=== PATIENT | female | born 1955 | race Asian ===

== ENCOUNTER → 2017-09-26 | Outpatient (CLI) | payer BC ==
[~2017-09-26] MED LIST: ESTROGEN CREAM TOP
[2017-09-26 18:06] LABS: MEAN CELL VOLUME 91.1 fL (80-100); MEAN CORPUSCULAR HEMOGLOBIN 29.9 pg (25-34); MEAN CORPUSCULAR HGB CONC 32.8 g/dl (32-36); PLATELET COUNT 181 K/uL (130-400); RED BLOOD COUNT 4.28 M/uL (4.2-5.4); WHITE BLOOD COUNT 4.45 K/uL (4.8-10.8)
[2017-09-26 18:57] LABS: ALB/GLOB RATIO 1.2 (0.9-2); ALKALINE PHOSPHATASE 85 U/L (45-117); ALT/SGPT 25 U/L (12-78); AST/SGOT 24 U/L (15-37); BLOOD UREA NITROGEN 24 mg/dl (7-18); BUN/CREATININE RATIO 42.8 (10-20); CARBON DIOXIDE 29 mmol/L (21-32); CHLORIDE 109 mmol/L (98-107); CREATININE 0.56 mg/dl (0.60-1.20); GLUCOSE 106 mg/dl (70-99); POTASSIUM 3.9 mmol/L (3.5-5.1); SODIUM 142 mmol/L (136-145)
--- NOTE | 2017-09-26 19:22 | DIAGNOSTIC IMAGING REPORT ---
ABDOMEN COMPLETE (US) CLINICAL HISTORY: 61 years-old Female presenting with ABD PAIN, PT TO LAB FIRST. TECHNIQUE: Real-time grayscale and limited color Doppler ultrasound imaging of the abdomen was performed. COMPARISON: None. FINDINGS: Pancreas: Visualized portions of the pancreatic head and body normal. Liver: Mildly hyperechogenic parenchyma, although the right hemidiaphragm remains visible, likely indicating mild steatosis. The liver measures 12.4 cm in maximal sagittal dimension. No sonographic evidence of hepatic mass. Main portal vein patent with normal directional flow. Biliary: No intrahepatic biliary ductal dilatation. Common bile duct measures up to 3-6 mm in diameter in the proximal to midportion and 7 mm at the pancreatic head. A focal hyperechoic filling defect may be present in the mid common duct. Gallbladder: Decompressed. 3 mm nonshadowing hyperechoic focus near the gallbladder neck in a dependent location, possibly cholesterol polyp versus tiny gallstone. Spleen: Normal in echogenicity and size, measuring 8.3 cm in length. Kidneys: Normal in size and echogenicity. Right kidney measures 9.6 cm, and left kidney measures 10.5 cm. No hydronephrosis. Vasculature: Visualized portions of the IVC and abdominal aorta normal. Ascites: None. IMPRESSION: 1. A focal hyperechoic filling defect may be present in the mid common duct suggesting choledocholithiasis. 2. 3 mm cholesterol polyp versus tiny gallstone at the gallbladder neck. 3. Possible hepatic steatosis. Electronically signed by: Sixto Zimmerman M.D. 09/26/2017 7:21 PM Dictated Date/Time: 09/26/2017 7:17 PM
== END | disposition home or self-care (01) ==
LOC: C.ULTR 17:36
PROVIDERS: ATTEND Family Medicine
DX: R10.9 Unspecified abdominal pain (principal)

== ENCOUNTER 2017-10-04 15:56 | Emergency (ER) | payer BC ==
[~2017-10-04] VITALS: Ht 152.4 cm; Wt 46.3 kg
[2017-10-04 16:02] VITALS: TEMP 36.3; Ht 152.4 cm; Wt 46.3 kg
[2017-10-04] MEDS ORDERED: ESTROGEN CREAM TOP (16:46)
--- NOTE | 2017-10-04 17:09 | EMERGENCY ROOM VISIT NOTE ---
History Report prepared by Maame: Yaakov Armstrong Under the Supervision of: Dr. Sunny Powell M.D. First contact with patient: 16:31 Chief Complaint: CARDIAC ASSESSMENT Stated Complaint: PAIN IN CHEST Nursing Triage Summary: pt to PCP today for epigastric pain that has been ongoing X 2 months pt reports pain has been worse after eating or moving around denies vomitting spouse reports pt had US today + for gallbladder disease History of Present Illness This history is provided by the patient's secondary to the language barrier. The patient is a 61 year old woman with a past medical history of a past exploratory abdominal surgery that was negative who presents to the ED with a cc of incrementally worsening bilateral burning lower rib cage pain beginning 2 months ago. Positive intermittent shortness of breath secondary to her pain. Negative fevers, cough, back pain, vomiting, melena, hematochezia, rash, or any other abnormal symptoms. When her pain began, she was diagnosed with bronchitis and treated with Doxycycline. She then had an allergic reaction to the antibiotic and was taken off of it. She was then treated by a loading dock helper for GERD, but did not resolved her symptoms. She does not have pain after eating. She has a family history of stroke and cardiac disease. Source of History: patient Onset: 2 months ago Position: chest (bilateral lower ribs) Symptom Intensity: mild Quality: burning Timing: worsening Associated Symptoms: + SOB (Intermittently), No fevers, No cough, No vomiting, No back pain, No melena, No hematochezia, No rash Review of Systems See HPI for pertinent positives and negatives. A total of ten systems were reviewed and were otherwise negative. Past Medical & Surgical Surgical Problems: (1) H/O exploratory laparotomy No acute medical history Family History Heart disease Stroke Social History Smoking Status: Never Smoker Smokeless Tobacco Use: No Alcohol Use: none Drug Use: none Marital Status: Housing Status: lives with significant other Occupation Status: employed Current/Historical Medications Scheduled [Estrogen Cream], 1 APPLN TOP Allergies Coded Allergies: Doxycycline (Verified Allergy, Severe, RED SPLOTCHES, 10/04/17) Physical Exam Vital Signs Date Time Temp Pulse Resp B/P (MAP) Pulse Ox O2 Delivery O2 Flow Rate FiO2 10/04/17 20:12 57 18 109/61 98 10/04/17 18:51 60 119/74 96 Room Air 10/04/17 16:02 36.3 66 20 127/83 97 Room Air Physical Exam GENERAL: Awake, alert, well-appearing, NAD HENT: Normocephalic, atraumatic. EYES: Normal conjunctiva. Sclera non-icteric. NECK: Supple. No nuchal rigidity. FROM. RESPIRATORY: CTAB, no rhonchi, wheezing, crackles CARDIAC: RRR, no MRG ABDOMEN: Soft, epigastric pain to palpation, BS+ MSK: No chest wall TTP, no LE edema NEURO: GCS 15, CN 2-12 intact, moves all 4s on command SKIN: No rash or jaundice noted. Medical Decision & Procedures ER Provider Diagnostic Interpretation: Radiology results as stated below per my review and radiologist interpretation: ABDOMINAL ULTRASOUND, RIGHT UPPER QUADRANT HISTORY: Chest pain. Right upper quadrant tenderness to palpation. COMPARISON: Abdominal ultrasound September 26, 2017. FINDINGS: No hepatic lesions are identified. The common bile duct is mildly dilated, measuring 9 mm in caliber. No common bile duct calculi are identified although the distal common bile duct is obscured. A 3 mm abnormality along the gallbladder wall could reflect a small polyp or tiny stones. There is no gallbladder wall thickening. No pericholecystic fluid is present. The pancreas is sonographically normal. There is no right hydronephrosis. IMPRESSION: 1. Mild dilatation of the common bile duct, measuring 9 mm. No common bile duct calculi identified by sonography. This finding could be correlated obstructive liver function tests. 2. 3 mm abnormality along the gallbladder wall which could reflect a tiny polyp or gallstone. No evidence for acute cholecystitis. Electronically signed by: Scottie Loaiza M.D. 10/04/2017 6:34 PM Dictated Date/Time: 10/04/2017 6:30 PM CHEST ONE VIEW PORTABLE CLINICAL HISTORY: Abdominal pain. COMPARISON STUDY: No previous studies for comparison. FINDINGS: Nipple shadow projects of the left lower lung. There is no pneumothorax or pleural effusion. There is no consolidation to suggest pneumonia. Cardiomediastinal silhouette is normal. There is no evidence of pulmonary edema. No lucency is identified under the hemidiaphragms to suggest pneumoperitoneum. IMPRESSION: No acute cardiopulmonary findings. Electronically signed by: Scottie Loaiza M.D. 10/04/2017 5:46 PM Dictated Date/Time: 10/04/2017 5:45 PM Laboratory Results 10/04/17 17:07 Red Blood Count 4.36, Mean Corpuscular Volume 90.1, Mean Corpuscular Hemoglobin 31.7, Mean Corpuscular Hemoglobin Concent 35.1, Mean Platelet Volume 10.9, Neutrophils (%) (Auto) 61.0, Lymphocytes (%) (Auto) 31.8, Monocytes (%) (Auto) 3.9, Eosinophils (%) (Auto) 3.1, Basophils (%) (Auto) 0.0, Neutrophils # (Auto) 3.10, Lymphocytes # (Auto) 1.62, Monocytes # (Auto) 0.20, Eosinophils # (Auto) 0.16, Basophils # (Auto) 0.00 10/04/17 17:07 Test 10/04/17 17:07 White Blood Count 5.09 K/uL (4.8-10.8) Red Blood Count 4.36 M/uL (4.2-5.4) Hemoglobin 13.8 g/dL (12.0-16.0) Hematocrit 39.3 % (37-47) Mean Corpuscular Volume 90.1 fL (80-100) Mean Corpuscular Hemoglobin 31.7 pg (25-34) Mean Corpuscular Hemoglobin Concent 35.1 g/dl (32-36) Platelet Count 173 K/uL (130-400) Mean Platelet Volume 10.9 fL (7.4-10.4) Neutrophils (%) (Auto) 61.0 % Lymphocytes (%) (Auto) 31.8 % Monocytes (%) (Auto) 3.9 % Eosinophils (%) (Auto) 3.1 % Basophils (%) (Auto) 0.0 % Neutrophils # (Auto) 3.10 K/uL (1.4-6.5) Lymphocytes # (Auto) 1.62 K/uL (1.2-3.4) Monocytes # (Auto) 0.20 K/uL (0.11-0.59) Eosinophils # (Auto) 0.16 K/uL (0-0.5) Basophils # (Auto) 0.00 K/uL (0-0.2) RDW Standard Deviation 41.5 fL (36.4-46.3) RDW Coefficient of Variation 12.6 % (11.5-14.5) Immature Granulocyte % (Auto) 0.2 % Immature Granulocyte # (Auto) 0.01 K/uL (0.00-0.02) Anion Gap 7.0 mmol/L (3-11) Est Creatinine Clear Calc Drug Dose 81.1 ml/min Estimated GFR () 118.6 Estimated GFR (Non- 102.3 BUN/Creatinine Ratio 30.8 (10-20) Calcium Level 9.3 mg/dl (8.5-10.1) Total Bilirubin 0.5 mg/dl (0.2-1) Direct Bilirubin < 0.1 mg/dl (0-0.2) Aspartate Amino Transf (AST/SGOT) 23 U/L (15-37) Alanine Aminotransferase (ALT/SGPT) 26 U/L (12-78) Alkaline Phosphatase 77 U/L (45-117) Troponin I < 0.015 ng/ml (0-0.045) Total Protein 7.7 gm/dl (6.4-8.2) Albumin 4.0 gm/dl (3.4-5.0) Lipase 242 U/L (73-393) Laboratory results reviewed by me ECG Indication: chest pain Rate (beats per minute): 65 Rhythm: normal sinus Findings: other (Normal intervals, normal axis, no STS changes or TWI) ED Course 163: The patient was evaluated in room C1. A complete history and physical exam was performed. 1840: I spoke with Dr. Torres of [facility] who recommended that the patient get a nuclear biliary scan with ejection fraction. The child welfare caseworker is helping set up and appointment for the patient. 1939: I reevaluated the patient. Discussed results and discharge instructions: Her verbalized understanding and agreement. The patient is ready for discharge. Medical Decision The patient is a 61 year old woman with a past medical history of a past exploratory abdominal surgery that was negative who presents to the ED with a cc of incrementally worsening bilateral lower rib cage pain beginning 2 months ago. Positive intermittent shortness of breath secondary to her pain. Negative fevers, cough, back pain, vomiting, melena, hematochezia, rash, or any other abnormal symptoms. Differential diagnosis: Etiologies such as appendicitis, diverticulitis, PUD, biliary pathology, UTI, pancreatitis, obstruction, mesenteric ischemia, aortic pathology, inflammatory bowel disease, renal colic, cardiac ischemia, pulmonary embolism, pneumonia, pneumothorax, musculoskeletal, infections, pericarditis, myocarditis, esophageal rupture, as well as others were entertained. Patient was seen and evaluated at the bedside. Patient was recently seen by her primary care physician and has had some ongoing epigastric type discomfort. No exertional symptoms. Patient has had some shortness of breath however secondary to pain upon inspiration. Patient is fairly well-appearing. No diaphoresis. Patient has had some worsening pain with eating. Patient did have an ultrasound of the right upper quadrant which showed questionable CBD dilation. Patient did have blood work completed along with EKG, troponin and repeat ultrasound. Patient's EKG is nonischemic. Troponin negative. Patient' s LFTs and lipase within normal limits. White blood cell count is normal. Patient has normal H&H. Patient's ultrasound did show questionable dilation of the CBD. I did speak with the loading dock helper who recommended a biliary nuclear med scan with ejection fraction. I did discuss this with the nuclear reactor engineer aeronautical research engineer who stated that they would not be able to obtain it this weekend. Given the difficulty in obtaining the study I did discuss arranging the study as an outpatient on Saturday. This was facilitated with the help of the child welfare caseworker. The patient and were told of how this would be obtained. They're also given strict follow-up instructions. They were agreeable to plan of care. I do not believe that this is atypical chest pain and less likely ACS given the history and physical, nonischemic EKG, and negative troponin. Patient was given strict follow-up, discharge, and return precautions. All questions were answered. Patient was deemed suitable for outpatient follow-up at this time. Patient agreed with the plan of care and was safely discharged home. Medication Reconcilliation Current Medication List: was personally reviewed by me Blood Pressure Screening Patient's blood pressure: Normal blood pressure Blood pressure disposition: Did not require urgent referral Consults Time Called: 1836 Consulting Physician: Dr. Torres - [facility] Returned Call: 1840 We discussed the patient's case. They recommended that the patient receive a nuclear biliary scan with ejection fraction. Impression Primary Impression: Epigastric abdominal pain Additional Impression: Dilated cbd, acquired Scribe Attestation The scribe's documentation has been prepared under my direction and personally reviewed by me in its entirety. I confirm that the note above accurately reflects all work, treatment, procedures, and medical decision making performed by me. Departure Information Dispostion Home / Self-Care Referrals Louie Almonte M.D. (PCP) Forms IMPORTANT VISIT INFORMATION Patient Instructions ED Gallstone W Biliary Colic, [facility] Additional Instructions Please return to the emergency department if you have worsening or recurrent symptoms not amenable to at-home treatment. Please call for a follow-up appointment with her primary care physician. Please take your medications as prescribed. If you have other concerns and/or complaints please feel free to also call your primary care physician's office or return the ED for further evaluation, management, and treatment. You may take 600 mg Ibuprofen every 6 hours as needed for pain with food for no more than 2 consecutive days. You may take tylenol 1000 mg every 6 hours as needed for pain. You may take motrin and tylenol separately or at the same time. Take your medications as prescribed. You have been scheduled a Hepatobiliary scan for 10/07/17. Please refer to your paperwork you received from case management. Please do not eat or drink anything after 1159 PM on 10/06/17. Also do not take any pain medications prior to your nuclear medicine scan. You have been examined and treated today on an emergency basis only. This is not a substitute for, or an effort to provide, complete comprehensive medical care. It is impossible to recognize and treat all injuries or illnesses in a single emergency department visit. It is therefore important that you follow up closely with [facility], your PCP, and/or your specialist(s). Call as soon as possible for an appointment. Thank you for your time and consideration. I look forward to speaking with you again soon. Please don't hesitate to call us if you have any questions. Problem Qualifiers
[2017-10-04 17:34] LABS: EOS % 3.1 %; EOS ABS # 0.16 K/uL (0-0.5); HEMATOCRIT 39.3 % (37-47); HEMOGLOBIN 13.8 g/dL (12.0-16.0); IG# 0.01 K/uL (0.00-0.02); LYMPH % 31.8 %; LYMPH ABS # 1.62 K/uL (1.2-3.4); MEAN CELL VOLUME 90.1 fL (80-100); MEAN CORPUSCULAR HEMOGLOBIN 31.7 pg (25-34); MEAN CORPUSCULAR HGB CONC 35.1 g/dl (32-36); MEAN PLATELET VOLUME 10.9 fL (7.4-10.4); MONO % 3.9 %; PLATELET COUNT 173 K/uL (130-400); RED CELL DISTRIBUTION WIDTH CV 12.6 % (11.5-14.5); RED CELL DISTRIBUTION WIDTH SD 41.5 fL (36.4-46.3); WHITE BLOOD COUNT 5.09 K/uL (4.8-10.8)
--- NOTE | 2017-10-04 17:47 | DIAGNOSTIC IMAGING REPORT ---
CHEST ONE VIEW PORTABLE CLINICAL HISTORY: Abdominal pain. COMPARISON STUDY: No previous studies for comparison. FINDINGS: Nipple shadow projects of the left lower lung. There is no pneumothorax or pleural effusion. There is no consolidation to suggest pneumonia. Cardiomediastinal silhouette is normal. There is no evidence of pulmonary edema. No lucency is identified under the hemidiaphragms to suggest pneumoperitoneum. IMPRESSION: No acute cardiopulmonary findings. Electronically signed by: Scottie Loaiza M.D. 10/04/2017 5:46 PM Dictated Date/Time: 10/04/2017 5:45 PM
[2017-10-04 17:55] LABS: ALT/SGPT 26 U/L (12-78); AST/SGOT 23 U/L (15-37); BLOOD UREA NITROGEN 16 mg/dl (7-18); CALCIUM 9.3 mg/dl (8.5-10.1); CARBON DIOXIDE 27 mmol/L (21-32); CREATININE 0.51 mg/dl (0.60-1.20); GLUCOSE 87 mg/dl (70-99); LIPASE 242 U/L (73-393); POTASSIUM 3.6 mmol/L (3.5-5.1); SODIUM 140 mmol/L (136-145)
[2017-10-04 18:00] LABS: ALKALINE PHOSPHATASE 77 U/L (45-117); TOTAL PROTEIN 7.7 gm/dl (6.4-8.2)
--- NOTE | 2017-10-04 18:35 | DIAGNOSTIC IMAGING REPORT ---
ABDOMINAL ULTRASOUND, RIGHT UPPER QUADRANT HISTORY: Chest pain. Right upper quadrant tenderness to palpation. COMPARISON: Abdominal ultrasound September 26, 2017. FINDINGS: No hepatic lesions are identified. The common bile duct is mildly dilated, measuring 9 mm in caliber. No common bile duct calculi are identified although the distal common bile duct is obscured. A 3 mm abnormality along the gallbladder wall could reflect a small polyp or tiny stones. There is no gallbladder wall thickening. No pericholecystic fluid is present. The pancreas is sonographically normal. There is no right hydronephrosis. IMPRESSION: 1. Mild dilatation of the common bile duct, measuring 9 mm. No common bile duct calculi identified by sonography. This finding could be correlated obstructive liver function tests. 2. 3 mm abnormality along the gallbladder wall which could reflect a tiny polyp or gallstone. No evidence for acute cholecystitis. Electronically signed by: Scottie Loaiza M.D. 10/04/2017 6:34 PM Dictated Date/Time: 10/04/2017 6:30 PM
[2017-10-04 20:12] VITALS: BP 109/61; PULSE 57; O2SAT 98
== END 2017-10-04 20:10 | disposition home or self-care (01) ==
LOC: C.EDB 15:57 → C.EDC 20:10
DX: R10.13 Epigastric pain (principal); K83.8 Other specified diseases of biliary tract; Z98.890 Other specified postprocedural states; Z82.3 Family history of stroke

== ENCOUNTER → 2017-10-07 | Outpatient (CLI) | payer BC ==
[~2017-10-07] MED LIST changes: +SINCALIDE IV ONE; +SODIUM CHLORIDE 0.9% IV ONE
--- NOTE | 2017-10-07 10:30 | DIAGNOSTIC IMAGING REPORT ---
HEPATOBILIARY EF IMAGING HISTORY: Pain. Nausea. BORDERLINE CBD DIALATION W/ SYMPOTMS COMPARISON: Ultrasound 10/04/2017 TECHNIQUE: Immediately following the intravenous administration of 5.5 mCi Tc-99m Choletec, dynamic anterior abdominal imaging pre/post 0.9 mcg of Kinevac was performed. FINDINGS: Uniform hepatic tracer accumulation is shown. Prompt intrahepatic biliary excretion is seen. The gallbladder, common bile duct, and small bowel are all visualized by 70 minutes. This appearance represents the normal sequence of biliary excretion. The gallbladder ejection fraction following administration of Kinevac was 66 % (normal >35%). IMPRESSION: 1. No evidence for cystic duct obstruction. 2. Gallbladder ejection fraction calculated to be 66 %. 3. Slight delay in small bowel activity which may indicate a component of distal common duct sphincter dysfunction The above report was generated using voice recognition software. It may contain grammatical, syntax or spelling errors. Electronically signed by: Giovanni Iverson M.D. 10/07/2017 10:28 AM Dictated Date/Time: 10/07/2017 10:26 AM
== END | disposition home or self-care (01) ==
LOC: C.NUCL 07:36
PROVIDERS: ATTEND Emergency Medicine
DX: K83.8 Other specified diseases of biliary tract (principal)

== ENCOUNTER 2017-10-10 16:57 | Emergency (ER) | payer BC ==
[~2017-10-10] VITALS: Ht 152.4 cm; Wt 47.6 kg
[~2017-10-10 16:57] MED LIST changes: -SINCALIDE IV ONE; -SODIUM CHLORIDE 0.9% IV ONE
[2017-10-10 17:03] VITALS: TEMP 36.4; Ht 152.4 cm; Wt 47.6 kg
[2017-10-10] MEDS ORDERED: LIDOCAINE HCL 2% VISC SOLN 20 ML UDC PO STA (17:23)
[2017-10-10] MEDS ORDERED: ALUMINUM/MAGNESIUM SUSP 30 ML UDC PO STA (17:23)
[2017-10-10] MEDS ORDERED: ASPIRIN 81 MG CHEW PO STA (17:23)
[2017-10-10 17:34] LABS: BASO % 0.4 %; BASO ABS # 0.02 K/uL (0-0.2); EOS % 2.6 %; EOS ABS # 0.13 K/uL (0-0.5); HEMATOCRIT 40.7 % (37-47); HEMOGLOBIN 13.9 g/dL (12.0-16.0); IG# 0.01 K/uL (0.00-0.02); LYMPH % 33.1 %; LYMPH ABS # 1.64 K/uL (1.2-3.4); MEAN CELL VOLUME 90.8 fL (80-100); MEAN CORPUSCULAR HGB CONC 34.2 g/dl (32-36); MEAN PLATELET VOLUME 10.7 fL (7.4-10.4); MONO % 4.6 %; MONO ABS # 0.23 K/uL (0.11-0.59); NEUT % 59.1 %; NEUT ABS # 2.93 K/uL (1.4-6.5); PLATELET COUNT 179 K/uL (130-400); RED CELL DISTRIBUTION WIDTH CV 12.7 % (11.5-14.5); WHITE BLOOD COUNT 4.96 K/uL (4.8-10.8)
--- NOTE | 2017-10-10 17:37 | EMERGENCY ROOM VISIT NOTE ---
History Report prepared by Maame: Jeb Hammond Under the Supervision of: Dr. Shannan Hernández M.D. First contact with patient: 17:18 Chief Complaint: CHEST PAIN Stated Complaint: CHEST PAINS, SOB History of Present Illness The patient is a 61 year old female who presents to the Emergency Room with complaints of worsening, constant, epigastric abdominal pain that radiates to her left lower chest beginning last week. The patient's states she was evaluated in the ED last week for similar symptoms. He reports when she was here , her pain was intermittent. The notes since then, the patient's symptoms have worsened and became constant. He states they thought her pain was muscular because it radiates to her right shoulder and left chest. The reports the patient had a nuclear scan and ultrasound that were negative for gallstones. He notes the patient is now short of breath, especially when excited. The states the patient's chest tightness increases when she wears a seatbelt or uses a blanket at night. He reports her pain also increases when she takes a deep breath. The notes the patient has been taking Aleve and aspirin, but she stopped taking it a few days ago because it was not helping her pain. He states the patient has been off work for two weeks. The reports she was evaluated by her PCP today and had a normal EKG. He notes they were told to come to the ED for further treatment. The denies long trips, taking aspirin today, and lower abdominal pain. Source of History: patient Onset: last week Position: chest (left, lower), abdomen (epigastric) Timing: constant, worsening Modifying Factors (Worsening): breathing (deep), other (wearing a seatbelt, using a blanket) Associated Symptoms: + SOB, No abdominal pain (lower) Note: Associated symptoms: right shoulder Denies: recent travel Review of Systems See HPI for pertinent positives & negatives. A total of 10 systems reviewed and were otherwise negative. Past Medical & Surgical Surgical Problems: (1) H/O exploratory laparotomy Family History Heart disease Stroke Social History Smoking Status: Never Smoker Alcohol Use: none Drug Use: none Marital Status: Housing Status: lives with significant other Occupation Status: employed Current/Historical Medications Scheduled [Estrogen Cream], 1 APPLN TOP UD Allergies Coded Allergies: Doxycycline (Verified Allergy, Severe, RED SPLOTCHES, 10/10/17) Physical Exam Vital Signs Date Time Temp Pulse Resp B/P (MAP) Pulse Ox O2 Delivery O2 Flow Rate FiO2 10/10/17 20:04 56 16 125/74 97 10/10/17 18:07 58 10/10/17 18:04 58 16 140/83 99 Room Air 10/10/17 17:46 Room Air 10/10/17 17:03 36.4 58 16 109/70 98 Room Air Physical Exam Vital signs reviewed. General: Well-appearing 61 year old female, in no significant distress. HEENT: No scleral icterus, PERRLA, neck supple. Atraumatic. Cardiovascular: Regular rate and rhythm, no extra sounds. Pulmonary: Clear to auscultation bilaterally, normal work of breathing. Abdomen: Soft, nontender, nondistended, positive bowel sounds. Musculoskeletal: Atraumatic, no peripheral edema. Tenderness to palpation to the anterior chest wall and right upper back. Pain with deep breathing. Neurologic: Patient awake alert and oriented x 3 Skin: Warm, dry, no rash Medical Decision & Procedures ER Provider Diagnostic Interpretation: X-ray results as stated below per interpretation by me and the radiologist: CHEST ONE VIEW PORTABLE CLINICAL HISTORY: CHEST PAIN pain COMPARISON STUDY: 10/04/2014 FINDINGS: The bones soft tissues and hemidiaphragms are normal. The cardiomediastinal silhouette is normal. The lungs are clear. The pulmonary vasculature is normal. IMPRESSION: Negative chest. The above report was generated using voice recognition software. It may contain grammatical, syntax or spelling errors. Electronically signed by: Giovanni Iverson M.D. 10/10/2017 5:57 PM Dictated Date/Time: 10/10/2017 5:55 PM Laboratory Results 10/10/17 17:15 Red Blood Count 4.48, Mean Corpuscular Volume 90.8, Mean Corpuscular Hemoglobin 31.0, Mean Corpuscular Hemoglobin Concent 34.2, Mean Platelet Volume 10.7, Neutrophils (%) (Auto) 59.1, Lymphocytes (%) (Auto) 33.1, Monocytes (%) (Auto) 4.6, Eosinophils (%) (Auto) 2.6, Basophils (%) (Auto) 0.4, Neutrophils # (Auto) 2.93, Lymphocytes # (Auto) 1.64, Monocytes # (Auto) 0.23, Eosinophils # (Auto) 0.13, Basophils # (Auto) 0.02 10/10/17 17:15 Test 10/10/17 17:15 10/10/17 17:38 White Blood Count 4.96 K/uL (4.8-10.8) Red Blood Count 4.48 M/uL (4.2-5.4) Hemoglobin 13.9 g/dL (12.0-16.0) Hematocrit 40.7 % (37-47) Mean Corpuscular Volume 90.8 fL (80-100) Mean Corpuscular Hemoglobin 31.0 pg (25-34) Mean Corpuscular Hemoglobin Concent 34.2 g/dl (32-36) Platelet Count 179 K/uL (130-400) Mean Platelet Volume 10.7 fL (7.4-10.4) Neutrophils (%) (Auto) 59.1 % Lymphocytes (%) (Auto) 33.1 % Monocytes (%) (Auto) 4.6 % Eosinophils (%) (Auto) 2.6 % Basophils (%) (Auto) 0.4 % Neutrophils # (Auto) 2.93 K/uL (1.4-6.5) Lymphocytes # (Auto) 1.64 K/uL (1.2-3.4) Monocytes # (Auto) 0.23 K/uL (0.11-0.59) Eosinophils # (Auto) 0.13 K/uL (0-0.5) Basophils # (Auto) 0.02 K/uL (0-0.2) RDW Standard Deviation 42.0 fL (36.4-46.3) RDW Coefficient of Variation 12.7 % (11.5-14.5) Immature Granulocyte % (Auto) 0.2 % Immature Granulocyte # (Auto) 0.01 K/uL (0.00-0.02) Anion Gap 3.0 mmol/L (3-11) Est Creatinine Clear Calc Drug Dose 68.9 ml/min Estimated GFR () 112.4 Estimated GFR (Non- 97.0 BUN/Creatinine Ratio 28.0 (10-20) Calcium Level 9.4 mg/dl (8.5-10.1) Total Bilirubin 0.4 mg/dl (0.2-1) Direct Bilirubin < 0.1 mg/dl (0-0.2) Aspartate Amino Transf (AST/SGOT) 19 U/L (15-37) Alanine Aminotransferase (ALT/SGPT) 26 U/L (12-78) Alkaline Phosphatase 92 U/L (45-117) Total Creatine Kinase 133 U/L (26-192) Creatine Kinase MB 1.8 ng/ml (0.5-3.6) Creatine Kinase MB Ratio 1.4 (0-3.0) Total Protein 7.6 gm/dl (6.4-8.2) Albumin 4.0 gm/dl (3.4-5.0) Lipase 280 U/L (73-393) Bedside D-Dimer 121 ng/mlFEU (0-450) Bedside Troponin I < 0.030 ng/ml (0-0.045) Laboratory results per my review. Medications Administered Medications (Trade) Dose Ordered Sig/Ortiz Route Start Time Stop Time Status Last Admin Dose Admin Aspirin (Aspirin Chew) 324 mg NOW STAT PO 10/10/17 17:23 10/10/17 17:25 DC 10/10/17 17:51 324 MG Lidocaine HCl (Viscous Lidocaine 2% Soln) 10 ml NOW STAT PO 10/10/17 17:23 10/10/17 17:25 DC 10/10/17 17:23 10 ML Al Hydroxide/Mg Hydroxide (Maalox Susp) 30 ml NOW STAT PO 10/10/17 17:23 10/10/17 17:25 DC 10/10/17 17:52 30 ML ECG Indication: chest pain Rate (beats per minute): 58 Rhythm: sinus bradycardia Findings: no acute ischemic change, no ectopy ED Course 1720: Past medical records reviewed. The patient was evaluated in room C06. A complete history and physical examination was performed. 1722: Ordered Maalox Susp 30ml PO, Lidocaine HCl 10ml PO, Aspirin 324mg PO 1938: Upon reevaluation, the patient appeared to have improvement of her symptoms. I discussed findings with her . He verbalized agreement of the treatment plan. The patient was discharged home. Medical Decision DDx: Acute coronary syndrome, pulmonary embolus, aortic dissection, musculoskeletal pain, pneumonia, pleural effusion, pneumothorax This pt was evaluated and appeared to be in no distress. IV access was obtained and lab work was drawn. Pt was given aspirin. EKG reveals no ischemia, CXR is clear. Lab work reveals no elevation of the cardiac enzymes. Pt's pain in reproducible, although pt believes she had improvement with a GI cocktail. Pt was advised to re-initiate prilosec as previously prescribed. She will f/u with her PCP for further cardiac testing if indicated and possibly GI eval. She will return to the ED for worsening of symptoms or any medical concerns. Impression Primary Impression: Atypical chest pain Scribe Attestation The scribe's documentation has been prepared under my direction and personally reviewed by me in its entirety. I confirm that the note above accurately reflects all work, treatment, procedures, and medical decision making performed by me. Departure Information Dispostion Home / Self-Care Referrals Louie Almonte M.D. (PCP) Forms Call Back Authorization, HOME CARE DOCUMENTATION FORM, IMPORTANT VISIT INFORMATION Patient Instructions My [facility] Additional Instructions Diagnosis: Atypical chest pain Please contact your primary care physician for follow-up. You may be considered for further cardiac testing. Return to the emergency department for worsening of symptoms or any medical concerns.
--- NOTE | 2017-10-10 17:58 | DIAGNOSTIC IMAGING REPORT ---
CHEST ONE VIEW PORTABLE CLINICAL HISTORY: CHEST PAIN pain COMPARISON STUDY: 10/04/2014 FINDINGS: The bones soft tissues and hemidiaphragms are normal. The cardiomediastinal silhouette is normal. The lungs are clear. The pulmonary vasculature is normal. IMPRESSION: Negative chest. The above report was generated using voice recognition software. It may contain grammatical, syntax or spelling errors. Electronically signed by: Giovanni Iverson M.D. 10/10/2017 5:57 PM Dictated Date/Time: 10/10/2017 5:55 PM
[2017-10-10 17:59] LABS: BLOOD UREA NITROGEN 17 mg/dl (7-18); GLUCOSE 99 mg/dl (70-99)
[2017-10-10 18:00] LABS: ALKALINE PHOSPHATASE 92 U/L (45-117); ALT/SGPT 26 U/L (12-78); CALCIUM 9.4 mg/dl (8.5-10.1); CARBON DIOXIDE 29 mmol/L (21-32); CKMB 1.8 ng/ml (0.5-3.6); LIPASE 280 U/L (73-393); TOTAL PROTEIN 7.6 gm/dl (6.4-8.2)
[2017-10-10 18:20] LABS: AST/SGOT 19 U/L (15-37); SODIUM 140 mmol/L (136-145)
[2017-10-10 20:04] VITALS: BP 125/74; PULSE 56; O2SAT 97
== END 2017-10-10 19:47 | disposition home or self-care (01) ==
LOC: C.EDB 16:58 → C.EDC 19:47
DX: R07.89 Other chest pain (principal); Z82.3 Family history of stroke

== ENCOUNTER → 2017-10-24 | Outpatient (CLI) | payer BC ==
--- NOTE | 2017-10-25 13:26 | MAMMOGRAPHY REPORT ---
BILATERAL DIGITAL SCREENING MAMMOGRAM TOMOSYNTHESIS WITH CAD: 10/24/2017 CLINICAL HISTORY: Routine screening. TECHNIQUE: Breast tomosynthesis in addition to standard 2D mammography was performed. Current study was also evaluated with a Computer Aided Detection (CAD) system. COMPARISON: No prior exams were available for comparison. BREAST COMPOSITION: The tissue of both breasts is extremely dense, which lowers the sensitivity of m ammography. FINDINGS: No suspicious masses, calcifications, or areas of architectural distortion are noted in ei ther breast. Scattered benign-appearing calcifications are noted bilaterally. IMPRESSION: ACR BI-RADS CATEGORY 2: BENIGN There is no mammographic evidence of malignancy. A 1 year screening mammogram is recommended. Note t hat no prior mammograms are available for comparison; if prior outside mammograms can be obtained, it would be helpful to evaluate for any possible subtle changes. The patient will receive written notification of the results. Approximately 10% of breast cancers are not detected with mammography. A negative mammographic report should not delay biopsy if a clinically suggestive mass is present. Chelo Barajas M.D. ah/:10/24/2017 16:10:05 Echocardiography Radiology Technologist: Ariela FONSECA(R)(M), [facility] letter sent: Normal 1/2 BI-RADS Code: ACR BI-RADS Category 2: Benign
== END | disposition home or self-care (01) ==
LOC: C.MAMM 11:59
PROVIDERS: ATTEND Family Medicine
DX: Z12.31 Encounter for screening mammogram for malignant neoplasm of breast (principal)

== ENCOUNTER 2023-09-09 14:29 | Inpatient (IN) ==
--- NOTE | 2023-09-09 15:00 | ED Triage Note ---
Date of Service September 09, 2023 Provider in Triage Author: Jocelyn Banda History of Present Illness This patient was briefly evaluated while in triage. An abbreviated physical exam was performed. This patient is a 67-year-old Female who presents to the ED for evaluation of pain across her upper abdomen and in the back. She was diagnosed with pancreatic cancer in [place] and just returned from there. She was seeing Dr. Isidro today for her initial appointment and apparently Dr. Isidro wanted her directly admitted but were unable to so they sent her to the ER. She has had pain for 5 months overall. I did speak with Dr. Isidro who states that patient will need workup including CT scan and labs as none of this has been done in the [place]. Physical Exam VITALS: Vitals are noted on the nurse's note and reviewed by myself. GENERAL: This is a 67-year-old female, in no acute distress, well-developed well-nourished. SKIN: The skin was without rashes. EARS: External auditory canals clear, tympanic membranes pearly villa without erythema or effusion bilaterally. EYES: Pupils equal round and reactive to light and accommodation. No scleral icterus. HEART: Regular rate and rhythm without murmurs gallops or rubs. LUNGS: Clear to auscultation bilaterally without wheezes, rales or rhonchi. ABDOMEN: Positive bowel sounds x 4. Tenderness across the upper abdomen. NEURO: Patient was alert and oriented to person place and time. Initial orders for labs and / or imaging were placed and patient was placed in the waiting area until a bed is available. Please see further documentation for the full ED course.
[2023-09-09 16:02] LABS: Basophils # (auto) 0.01 K/uL (0.00-0.20); Basophils % (auto) 0.2 %; Eosinophils % (auto) 2.1 %; Hematocrit (blood only) 37.8 % (37.0-47.0); Hemoglobin 12.9 g/dl (12.0-16.0); Immature Granulocytes # (auto) 0.01 K/uL (0.01-0.20); Immature Granulocytes % (auto) 0.2 %; Lymphocytes # (auto) 1.44 K/uL (1.20-3.40); Lymphocytes % (auto) 30.3 %; Mean Corpuscular Hemoglobin 29.8 pg (25.0-34.0); Mean Corpuscular Hgb Conc 34.1 g/dL (32.0-36.0); Mean Corpuscular Volume 87.3 fL (80.0-100.0); Mean Platelet Volume 10.5 fL (9.4-12.4); Monocytes # (auto) 0.33 K/uL (0.11-0.59); Monocytes % (auto) 6.9 %; Neutrophils # (auto) 2.87 K/uL (1.40-6.50); Neutrophils % (auto) 60.3 %; Platelet Count 216 K/uL (130-400); RDW Coefficient of Variation 12.3 % (11.5-14.5); RDW Standard Deviation 39.6 fL (36.4-46.3); Red Blood Count 4.33 M/uL (4.20-5.40); White Blood Count 4.76 K/ul (4.8-10.8)
[2023-09-09 16:19] LABS: Alanine Aminotransferase 8 U/L (7-52); Albumin Globulin Ratio 1.5 (0.9-2); Alkaline Phosphatase 72 U/L (34-104); Anion Gap 7 (3-11); Aspartate Aminotransferase 15 U/L (13-39); Bilirubin,Total 0.6 mg/dl (0.2-1.0); Blood Urea Nitrogen 9 mg/dl (6-23); Calcium 9.1 mg/dl (8.6-10.3); Carbon Dioxide 24 mmol/L (21-32); Chloride 105 mmol/L (98-107); Est GFR (African American) 112.3 ml/min; Est GFR (Non-African American) 96.9 ml/min; Globulin 2.7 gm/dl (2.5-4.0); Glucose 99 mg/dl (70-99(Fasting)); Lipase 174 U/L (11-82); Potassium 3.5 mmol/L (3.5-5.1); Sodium 136 mmol/L (136-145); Total Protein 6.7 gm/dl (6.0-8.3)
[2023-09-09 16:31] LABS: Prothrombin Time 10.9 Seconds (9.0-12.0)
[2023-09-09] MEDS ORDERED: OPTIRAY 320 125ml IV ONE (16:40)
--- NOTE | 2023-09-09 17:02 | CT Scan Report ---
CT SCAN OF THE ABDOMEN COMBO PANCREAS PROTOCOL CLINICAL HISTORY: Pancreatic mass. COMPARISON STUDY: Abdominal ultrasound dated 10/04/2017. TECHNIQUE: Before and following the IV administration of 118 cc of Optiray 320, CT scan of the abdom en is performed from the lung bases to the pelvic inlet using a pancreas protocol. Images are reviewe d in the axial, sagittal, and coronal planes. IV contrast was administered without complication. A do se lowering technique was utilized adhering to the principles of ALARA. The examination is modestly d egraded by motion artifact. CT DOSE: 684.79 mGy.cm FINDINGS: Lung bases: The heart is normal in size and without pericardial effusion. The lung bases are clear no ting dependent atelectasis. Liver: The contrast-enhanced liver is normal in size, contour, and attenuation. Fatty infiltration is seen adjacent to falciform ligament. There is no intrahepatic biliary ductal dilatation. Hepatic and portal vasculature: Hepatic arterial anatomy is conventional. The hepatic veins, the port al veins, the superior mesenteric vein, and the splenic vein are patent. The mass lesion is not clear ly approximate the splenic vein. Gallbladder: Unremarkable. Spleen: Normal in size and attenuation. Pancreas: There is a heterogeneous and infiltrative low-attenuation mass lesion centered in the pancr eatic head/neck. This is best seen on axial image #107 of the portal venous phase series and measures roughly 2.6 x 2.5 x 2.3 cm. The upstream pancreatic duct is significantly dilated, measuring up to 9 mm diameter. The mass lesion appears to encase the gastroduodenal artery. This closely approximates and may invade the adjacent gastroduodenal junction. A 6 cm cystic focus is suggested in the uncinate process on image #128. Adrenal glands: Unremarkable. Kidneys: The contrast enhanced kidneys are normal in size and without hydronephrosis. No renal calcul i are identified on the unenhanced series. The kidneys enhance symmetrically. An 8 mm cyst is seen on the left. Abdominal vasculature: The abdominal aorta is normal in course and caliber noting mild atheroscleroti c calcification. No dissection is seen. Bowel: A surgical clip is noted in the stomach. Imaged portions of the small bowel and colon show no evidence of obstruction. There is moderate colonic fecal retention. Peritoneum: There is no intraperitoneal free air or abdominal ascites. Lymphadenopathy: None. Skeletal structures: The skeletal structures are osteopenic. No lytic or blastic lesions are seen. IMPRESSION: 1. There is an approximately 2.6 cm ill-defined mass lesion arising from the pancreatic head/neck as detailed above. A pancreatic adenocarcinoma is the diagnosis of exclusion. 2. The mass does not clearly approximate the superior mesenteric vessels, but does appear to encase t he gastroduodenal artery. The lesion closely approximates and may invade the adjacent gastroduodenal junction. 3. There is no evidence of intra-abdominal metastatic disease. 4. Additional findings as above. ACT 112: Positive. There are findings on this exam that require communication between the performing entity and the patient following Patient Test Result Information Act ([place] Act 112) guidelines. Electronically signed by: Dre Barrow M.D. 09/09/2023 5:00 PM
--- NOTE | 2023-09-09 17:06 | CT Scan Report ---
CT ANGIOGRAM OF THE CHEST CLINICAL HISTORY: Pancreatic mass. Dyspnea. Atypical chest pain. COMPARISON STUDY: Chest x-ray dated 11/02/2022. TECHNIQUE: Following the IV administration of 118 cc of Optiray 320, CT angiogram of the chest was pe rformed from the upper abdomen to the thoracic inlet utilizing the pulmonary embolus protocol. Images are reviewed in the axial, sagittal, and coronal planes. 3-D MIPS images are created and assessed. I V contrast was administered without complication. A dose lowering technique was utilized adhering to the principles of ALARA. FINDINGS: Thyroid: Imaged portions of the thyroid gland are normal in size and attenuation. Thoracic aorta: The thoracic aorta is normal in caliber and demonstrates standard 3-vessel arch anato my. No dissection is seen. Pulmonary vasculature: The pulmonary trunk is normal in caliber. There are no filling defects identif ied in main, lobar, or segmental pulmonary branches to suggest pulmonary embolus. Heart: The heart is normal in size and without pericardial effusion. There are scattered coronary art haresh calcifications. Lungs and pleural spaces: There is no airspace consolidation or pleural effusion. The trachea and shyla tral airways are clear. A small pleural plaque is seen in the anterior left lung on image #139. Mediastinum: There is no mediastinal lymphadenopathy. Ebony: Clear. Axillae: There is no axillary lymphadenopathy. Upper abdomen: A surgical clip is noted in the stomach. A subcentimeter flash filling hemangioma is s uggested in the right lobe of liver on image #45. Fatty infiltration is seen adjacent to the falcifor m ligament. There is dilatation of the pancreatic duct, secondary to an obstructing mass lesion. See report of abdominal CT performed the same day for detailed intra-abdominal findings. Skeletal structures: The skeletal structures are osteopenic. No lytic or blastic bony lesions are see n. Degenerative change is noted in the shoulders and thoracic spine. IMPRESSION: 1. There is no evidence of pulmonary embolus in the main, lobar, or segmental pulmonary arteries. 2. There is no airspace consolidation or pleural effusion. 3. There is no evidence of intrathoracic metastatic disease. 4. Additional findings as above. ACT 112: Negative or not required by law. Electronically signed by: Dre Barrow M.D. 09/09/2023 5:05 PM
--- NOTE | 2023-09-09 17:21 | History & Physical Report ---
Date of Service September 09, 2023 Assessment & Plan (1) Pancreatic cancer: Plan: Pancreatic Cancer New dx - CTAchest: No evidence of PE, no airspace consolidations or pleural effusion, no evidence of intrathoracic metastatic disease. CTabdomen pancreatic protocol: 2.6 cm ill-defined mass lesion from the pancreatic head/neck consistent with pancreatic adenocarcinoma. This is encasing the gastroduodenal artery and lesion approximate/may invade gastroduodenal junction. No evidence of intra-abdominal metastatic disease. - Pt has not had biopsy; GI consulted for EGD-EUS bx Anticipate neoadjuvant chemotherapy yoanna, Dr. Isidro following General surgery consulted for port placement No transaminitis, lipase is elevated, no ANGEL LUIS INR normal Multimodal pain control. Tylenol 1 g every 8 hours, breakthrough hydromorphone scale 0.25-0.5 mg every 4 hours. Avoid NSAIDs. PRN Zofran. N.p.o. IV FM plasmalyte 120 cc/h - Ca 19-9 ordered, pending - After chemo --> being set up with [facility] Dr. [facility] - CMP/CBC miguel (2) Atypical chest pain: Plan: History of atypical chest pain Nonischemic, patient on prior patient's reports that noted some shortness of breath and a feeling of chest pain but only when she was acutely upset/angry. No chest pain outside of this. No chest pain with exertion previously. - Hx of esophagitis on egd in [place], reports this pain improved but the pain in her low ribs, LUQ has persisted Baseline EKG placement with no acute territorial ST segment changes, no territorial T wave inversions. QTc 470 (3) Subclinical hypothyroidism: Plan: Subclinical hyperthyroidism Reportedly mildly elevated TSH. Transiently on levothyroxine, but stopped weeks ago as did not feel any different - Repeat TSH/T4 pending Plan DVT prophylaxis: SCDs, lovenox CODE: Full Diet: NPO Dispo: M/S History of Present Illness Primary Care Provider: Louie Peña is a 67-year-old female with a past medical history of gallstones and subclinical hypothyroidism who presents as a direct admit via transfer center for evaluation of pancreatic cancer. Patient reports that she was recently diagnosed with pancreatic cancer in [place], returned to [place] Pain in the abdomen/below the ribs bilaterally started 5 months ago. Thryoid was also a little low, but she did not feel better with medication for this. Pain got worse and was seen in [facility]. heart and stomach were normal and was released after 2 days. Pt reports fresutration her cancer was not caught. She went home to [place] for a few weeks and tried herbal medicines which did not work, got an MRI and was found to have pancreatic cancer. They recommended 2 sessions of chemotherapy prior to attempting surgery. Pt reports she does not trust the surgeons in [place] so [place]. [place] Saturday (3 days ago) and an emergency appoitnment was made with Dr. Isidro who referred her to the ER. Morphine helps the pain, but overall the pain has gradually worsened over the past few weeks and now makes it difficult to sleep. Reduced appetite, able to eat feels full easily but eating does not cause pain. Chronically short of breath due. +constipation, denies diarrhea. No fevers or chills. Had an EGD while in [place], was dx with esophagitis and ?biopsy. Records being sent to [facility]. Medical History: Reviewed Medications: Reviewed Surgical History: Reviewed Family history: Reviewed Allergies: Reviewed. Doxycycline --> red rash requiring epi with extreme reaction. Recommended for dose reduction to pediatric if needed in the future. Social History: No tobacco. Code Status: Full Allergies Allergy/AdvReac Type Severity Reaction Status Date / Time doxycycline Allergy Severe RED Verified 09/09/23 17:07 SPLOTCHES ephedrine AdvReac Severe Blurry Verified 09/09/23 17:07 Vision with adult dose, child dose--OKAY Home Medications Medication Instructions Recorded Confirmed Type No Known Home Medications 09/09/23 09/09/23 History Past Med/Surg History Surgical History History of exploratory laparotomy done in [place] for abd pain, nothing found History of colonoscopy History of surgery left eyebrow cyst removal by dr. lester Social History Smoking Status: Never smoker Second Hand Exposure: No; Hx Alcohol Use: No Hx Substance Use: No Preferred Language: Mandarin [place] Communication Tools: IPad and Language Line Primary Therapist Primary Therapist Required: Yes Beliefs That Will Affect Care: None Current Living Situation: Spouse Feels Safe at Home: Yes Assistive Devices: Glasses Physical Exam Physical Exam: General: A&Ox3. NAD. Cooperative. HEENT: Atraumatic, normocephalic. PERLAA. EoM intact. Vision/hearing intact Pulm: CTAB A&P. -wheezes, -rales, -rhonchi. Symmetrical chest rise. No increased work of breathing. No respiratory distress. Cardiac: RRR, -mrg. Radial pulses intact and symmetrical. Abdominal: TTP at RUQ/epigastrum. No rebound Ext: warm, dry. no edema Results & Data Results & Data Vital Signs (Past 12 Hours) Vital Signs Temp Pulse Pulse Resp BP BP Pulse Ox 09/09/23 17:13 75 09/09/23 16:20 71 16 129/79 97 09/09/23 14:53 36.8 C 70 18 116/73 98 O2 Del Method 09/09/23 17:13 09/09/23 16:20 Room Air 09/09/23 14:53 Room Air PG Care Time/CCT Total # of Minutes Spent Total Time Spent with Patient: Total time spent is greater than 50% in coordination of care (as documented) at patient's floor/unit and/or counseling patient: Coding Level of Care Code 45516 INT INP/OBS CARE MIN Diagnoses Pancreatic cancer C25.9 Atypical chest pain R07.89 Subclinical hypothyroidism E03.8
[2023-09-09] MEDS ORDERED: ONDANSETRON INJ 2 MG/ML 2 ML VIAL IV PRN ×2 (17:26→20:10)
[2023-09-09] MEDS ORDERED: HYDROmorphone INJ 1 MG/ML SYRINGE IV PRN (17:26)
[2023-09-09] MEDS ORDERED: HYDROmorphone INJ 0.5 MG/0.5 ML SYR IV PRN ×3 (17:26→18:00)
[2023-09-09] MEDS: ACETAMINOPHEN 1,000 MG/100 ML VIAL IV PRN (17:49)
[2023-09-09] MEDS: PLASMA-LYTE A 1,000 ML IV SCH (17:49)
--- NOTE | 2023-09-09 20:01 | Emergency Department Note ---
ED Provider Note History of Present Illness Chief Complaint: Pain (Generalized) Stated Complaint: UNCONTROLLED PAIN Time Seen by Provider: 09/09/23 15:12 This patient is a 67-year-old Female who presents to the ED for evaluation of pain across her upper abdomen and in the back. Pain has been ongoing for 5 months, she had seen her PCP and been seen in another ER with no findings. She was diagnosed with pancreatic cancer in [place] and just returned from there. She was seeing Dr. Isidro today for her initial appointment and apparently Dr. Isidro wanted her directly admitted but were unable to so they sent her to the ER. She has had pain for 5 months overall. I did speak with Dr. Isidro who states that patient will need workup including CT scan and labs as none of this has been done [place] the [place]. She does recommend admission but was unable to get the patient directly admitted. Home Medications Medication Instructions Recorded Confirmed Type No Known Home Medications 09/09/23 09/09/23 History Allergies Allergy/AdvReac Type Severity Reaction Status Date / Time doxycycline Allergy Severe RED Verified 09/09/23 17:07 SPLOTCHES ephedrine AdvReac Severe Blurry Verified 09/09/23 17:07 Vision with adult dose, child dose--OKAY Past Med/Surg History Surgical History History of exploratory laparotomy done in [place]. for abd pain, nothing found History of colonoscopy History of surgery left eyebrow cyst removal by dr. lester Social History Smoking Status: Never smoker Second Hand Exposure: No; Hx Alcohol Use: No Hx Substance Use: No Preferred Language: Mandarin Yoruba Communication Ability: Effective Communication Tools: IPad and Language Line Bottom Pounder Cement Shoes Bottom Pounder Cement Shoes Required: No Beliefs That Will Affect Care: None Current Living Situation: Spouse Current Living Situation Comment: lives at home with , independent Other Information That Helps Us Care for You: No Feels Safe at Home: Yes Safety Concerns: Feels Safe At This Time Assistive Devices: Glasses Physical Exam Vital Signs Vital Signs - 24 hr 09/09/23 14:53 09/09/23 16:20 09/09/23 16:50 Temperature 36.8 C Temperature Source Temporal Artery Scan Pulse Rate 70 75 Pulse Rate [Left Apical] 71 Pulse Rhythm Regular Pulse Strength Normal Respiratory Rate 18 16 23 Respiratory Effort / Characteristics Non-Labored Non-Labored Spontaneous Respiratory Depth Normal Normal Respiratory Pattern Regular Regular Blood Pressure 116/73 135/74 Blood Pressure [Right Arm] 129/79 Blood Pressure Mean 87 94 Blood Pressure Mean [Right Arm] 95 Blood Pressure Position Sitting Blood Pressure Position [Right Arm] Lying Pulse Oximetry 98 97 100 Oxygen Delivery Method Room Air Room Air Room Air Sepsis Recent Fever Within 48 Hours No Sepsis New/Unexplained Change in Mental Status No Sepsis Action Taken by Nursing No Action Required 09/09/23 17:10 09/09/23 17:13 09/09/23 17:30 Temperature Temperature Source Pulse Rate 69 75 66 Pulse Rate [Left Apical] Pulse Rhythm Pulse Strength Respiratory Rate 18 13 Respiratory Effort / Characteristics Respiratory Depth Respiratory Pattern Blood Pressure 125/71 115/77 Blood Pressure [Right Arm] Blood Pressure Mean 89 89 Blood Pressure Mean [Right Arm] Blood Pressure Position Blood Pressure Position [Right Arm] Pulse Oximetry 98 95 Oxygen Delivery Method Room Air Room Air Sepsis Recent Fever Within 48 Hours Sepsis New/Unexplained Change in Mental Status Sepsis Action Taken by Nursing 09/09/23 18:00 Temperature Temperature Source Pulse Rate 66 Pulse Rate [Left Apical] Pulse Rhythm Pulse Strength Respiratory Rate 18 Respiratory Effort / Characteristics Respiratory Depth Respiratory Pattern Blood Pressure 120/71 Blood Pressure [Right Arm] Blood Pressure Mean 87 Blood Pressure Mean [Right Arm] Blood Pressure Position Blood Pressure Position [Right Arm] Pulse Oximetry 98 Oxygen Delivery Method Room Air Sepsis Recent Fever Within 48 Hours Sepsis New/Unexplained Change in Mental Status Sepsis Action Taken by Nursing VITALS: Vitals are noted on the nurse's note and reviewed by myself. GENERAL: This is a 67-year-old female, in no acute distress but uncomfortable appearing. SKIN: The skin was without rashes. EYES: Pupils equal round and reactive to light and accommodation. No scleral icterus. MOUTH: Mucous membranes moist. Tonsils are not enlarged. Pharynx without erythema or exudate. NECK: Supple without nuchal rigidity. No lymphadenopathy. HEART: Regular rate and rhythm without murmurs gallops or rubs. LUNGS: Clear to auscultation bilaterally without wheezes, rales or rhonchi. ABDOMEN: Positive bowel sounds x 4. Soft, tenderness across the upper abdomen. No guarding or rebound tenderness. NEURO: Patient was alert and oriented to person place and time. Course Administered Medications Acetaminophen (Ofirmev) 1,000 mg in 100 mls @ 400 mls/hr IV Q8H PRN PRN Reason: Fever/Mild Pain (Pain 1,2,3) Stop: 09/12/23 17:25 Last Infusion: 09/09/23 18:36 Dose: Infused Documented By: Admin: 09/09/23 17:49 Dose: 400 mls/hr Documented By: FREDDY Parenteral Electrolytes (Plasma-Lyte A Ph 7.4) 1,000 mls @ 125 mls/hr IV .Q8H MICHELLE Stop: 10/09/23 17:29 Last Admin: 09/09/23 17:49 Dose: 125 mls/hr Documented By: FREDDY Discontinued Medications Hydromorphone HCl (Hydromorphone Inj 0.5 Mg/0.5 Ml Syr) 0.5 mg IV Q4H PRN PRN Reason: Moderate Pain (4,5,6) on NRS Stop: 09/23/23 17:25 Last Admin: 09/09/23 17:49 Dose: 0.5 mg Documented By: FREDDY Ioversol (Optiray 320 125ml) 118 ml IV ONCE ONE Stop: 09/09/23 16:41 Last Admin: 09/09/23 16:36 Dose: 118 ml Documented By: SAVANNAH Miscellaneous (Patient's Height &/Or Weight Needed) 1 each N/A NOW STA Stop: 09/09/23 20:08 Last Admin: 09/09/23 21:25 Dose: 1 each Documented By: EHSAN Medical Decision Making Differential Diagnosis Appendicitis, ovarian cyst, ovarian torsion, TOA, PID, infections, diverticulitis, UTI, obstruction, mesenteric ischemia, aortic pathology, inflammatory bowel disease, renal colic, PUD, pancreatitis, biliary pathology, hernia, volvulus, constipation, as well as other pathologies. Home Medications was personally reviewed by me Laboratory Data Attestation: I reviewed the patient's lab results. 09/09/23 15:43 09/09/23 15:43 Lab Results 09/09/23 Range/Units 15:43 WBC 4.76 L (4.8-10.8) K/ul RBC 4.33 (4.20-5.40) M/uL Hgb 12.9 (12.0-16.0) g/dl Hct 37.8 (37.0-47.0) % MCV 87.3 (80.0-100.0) fL MCH 29.8 (25.0-34.0) pg MCHC 34.1 (32.0-36.0) g/dL RDW Std Deviation 39.6 (36.4-46.3) fL RDW Coeff of Marlo 12.3 (11.5-14.5) % Plt Count 216 (130-400) K/uL MPV 10.5 (9.4-12.4) fL Immature Gran % (Auto) 0.2 % Neut % (Auto) 60.3 % Lymph % (Auto) 30.3 % [place] % (Auto) 6.9 % Eos % (Auto) 2.1 % Baso % (Auto) 0.2 % Neut # (Auto) 2.87 (1.40-6.50) K/uL Lymph # (Auto) 1.44 (1.20-3.40) K/uL [place] # (Auto) 0.33 (0.11-0.59) K/uL Eos # (Auto) 0.10 (0.00-0.50) K/uL Baso # (Auto) 0.01 (0.00-0.20) K/uL Immature Gran # (Auto) 0.01 (0.01-0.20) K/uL PT 10.9 (9.0-12.0) Seconds INR 1.0 (0.9-1.1) Sodium 136 (136-145) mmol/L Potassium 3.5 (3.5-5.1) mmol/L Chloride 105 (98-107) mmol/L Carbon Dioxide 24 (21-32) mmol/L Anion Gap 7 (3-11) BUN 9 (6-23) mg/dl Creatinine 0.53 L (0.6-1.2) mg/dl Est Cr Clr Drug Dosing Not Reportable Est GFR ( Amer) 112.3 ml/min Est GFR (Non-Af Amer) 96.9 ml/min BUN/Creatinine Ratio 17.0 (10-20) Glucose 99 (70-99(Fasting)) mg/dl Calcium 9.1 (8.6-10.3) mg/dl Total Bilirubin 0.6 (0.2-1.0) mg/dl AST 15 (13-39) U/L ALT 8 (7-52) U/L Alkaline Phosphatase 72 (34-104) U/L Total Protein 6.7 (6.0-8.3) gm/dl Albumin 4.0 (3.4-5.0) gm/dl Globulin 2.7 (2.5-4.0) gm/dl Albumin/Globulin Ratio 1.5 (0.9-2) Lipase 174 H (11-82) U/L Imaging Data Attestation: I personally reviewed and interpreted this imaging study as follows: Radiologist's Impression: Pancreas CT 09/09/23 15:05 CT SCAN OF THE ABDOMEN COMBO PANCREAS PROTOCOL CLINICAL HISTORY: Pancreatic mass. COMPARISON STUDY: Abdominal ultrasound dated 10/04/2017. TECHNIQUE: Before and following the IV administration of 118 cc of Optiray 320, CT scan of the abdomen is performed from the lung bases to the pelvic inlet using a pancreas protocol. Images are reviewed in the axial, sagittal, and coronal planes. IV contrast was administered without complication. A dose lowering technique was utilized adhering to the principles of ALARA. The examination is modestly degraded by motion artifact. CT DOSE: 684.79 mGy.cm FINDINGS: Lung bases: The heart is normal in size and without pericardial effusion. The lung bases are clear noting dependent atelectasis. Liver: The contrast-enhanced liver is normal in size, contour, and attenuation. Fatty infiltration is seen adjacent to falciform ligament. There is no intrahepatic biliary ductal dilatation. Hepatic and portal vasculature: Hepatic arterial anatomy is conventional. The hepatic veins, the portal veins, the superior mesenteric vein, and the splenic vein are patent. The mass lesion is not clearly approximate the splenic vein. Gallbladder: Unremarkable. Spleen: Normal in size and attenuation. Pancreas: There is a heterogeneous and infiltrative low-attenuation mass lesion centered in the pancreatic head/neck. This is best seen on axial image #107 of the portal venous phase series and measures roughly 2.6 x 2.5 x 2.3 cm. The upstream pancreatic duct is significantly dilated, measuring up to 9 mm diameter. The mass lesion appears to encase the gastroduodenal artery. This closely approximates and may invade the adjacent gastroduodenal junction. A 6 cm cystic focus is suggested in the uncinate process on image #128. Adrenal glands: Unremarkable. Kidneys: The contrast enhanced kidneys are normal in size and without hydronephrosis. No renal calculi are identified on the unenhanced series. The kidneys enhance symmetrically. An 8 mm cyst is seen on the left. Abdominal vasculature: The abdominal aorta is normal in course and caliber noting mild atherosclerotic calcification. No dissection is seen. Bowel: A surgical clip is noted in the stomach. Imaged portions of the small bowel and colon show no evidence of obstruction. There is moderate colonic fecal retention. Peritoneum: There is no intraperitoneal free air or abdominal ascites. Lymphadenopathy: None. Skeletal structures: The skeletal structures are osteopenic. No lytic or blastic lesions are seen. IMPRESSION: 1. There is an approximately 2.6 cm ill-defined mass lesion arising from the pancreatic head/neck as detailed above. A pancreatic adenocarcinoma is the diagnosis of exclusion. 2. The mass does not clearly approximate the superior mesenteric vessels, but does appear to encase the gastroduodenal artery. The lesion closely approximates and may invade the adjacent gastroduodenal junction. 3. There is no evidence of intra-abdominal metastatic disease. 4. Additional findings as above. ACT 112: Positive. There are findings on this exam that require communication between the performing entity and the patient following Patient Test Result Information Act ([place] Act 112) guidelines. Electronically signed by: Dre Barrow M.D. 09/09/2023 5:00 PM Chest CTA 09/09/23 15:12 CT ANGIOGRAM OF THE CHEST CLINICAL HISTORY: Pancreatic mass. Dyspnea. Atypical chest pain. COMPARISON STUDY: Chest x-ray dated 11/02/2022. TECHNIQUE: Following the IV administration of 118 cc of Optiray 320, CT angiogram of the chest was performed from the upper abdomen to the thoracic inlet utilizing the pulmonary embolus protocol. Images are reviewed in the axial, sagittal, and coronal planes. 3-D MIPS images are created and assessed. IV contrast was administered without complication. A dose lowering technique was utilized adhering to the principles of ALARA. FINDINGS: Thyroid: Imaged portions of the thyroid gland are normal in size and attenuation. Thoracic aorta: The thoracic aorta is normal in caliber and demonstrates standard 3-vessel arch anatomy. No dissection is seen. Pulmonary vasculature: The pulmonary trunk is normal in caliber. There are no filling defects identified in main, lobar, or segmental pulmonary branches to suggest pulmonary embolus. Heart: The heart is normal in size and without pericardial effusion. There are scattered coronary artery calcifications. Lungs and pleural spaces: There is no airspace consolidation or pleural effusion. The trachea and central airways are clear. A small pleural plaque is seen in the anterior left lung on image #139. Mediastinum: There is no mediastinal lymphadenopathy. Ebony: Clear. Axillae: There is no axillary lymphadenopathy. Upper abdomen: A surgical clip is noted in the stomach. A subcentimeter flash filling hemangioma is suggested in the right lobe of liver on image #45. Fatty infiltration is seen adjacent to the falciform ligament. There is dilatation of the pancreatic duct, secondary to an obstructing mass lesion. See report of abdominal CT performed the same day for detailed intra-abdominal findings. Skeletal structures: The skeletal structures are osteopenic. No lytic or blastic bony lesions are seen. Degenerative change is noted in the shoulders and thoracic spine. IMPRESSION: 1. There is no evidence of pulmonary embolus in the main, lobar, or segmental pulmonary arteries. 2. There is no airspace consolidation or pleural effusion. 3. There is no evidence of intrathoracic metastatic disease. 4. Additional findings as above. ACT 112: Negative or not required by law. Electronically signed by: Dre Barrow M.D. 09/09/2023 5:05 PM MDM Narrative This patient is a 67-year-old female who presents to the emergency department for evaluation of pancreatic cancer. Patient was diagnosed with this in [place] and has not had any workup in the [place]. She saw oncology today for her first appointment and was having some severe pain. They recommended admission but were unable to get a direct admission so they sent her to the ER. I did speak with Dr. Isidro about recommended orders. CT of the abdomen/pelvis pancreas protocol as well as CT angiogram of the chest were ordered and performed. These did redemonstrate a pancreatic mass. I spoke with the [facility], who agreed to evaluate the patient for further care. Impression Pancreatic mass, Upper abdominal pain Discharge Plan Visit Data Chief Complaint: Pain (Generalized) Stated Complaint: UNCONTROLLED PAIN ED Provider: Sherice Ramachandran ED Midlevel Provider: Jocelyn Banda Discharge Problem: Pancreatic mass, Upper abdominal pain Patient Disposition: Admitted As Inpatient Discharge Instructions Interventions: ED Discharge Assessment Last Done: 09/09/23 21:47
[2023-09-09] MEDS ORDERED: Patient's HEIGHT &/or WEIGHT Needed STA (20:07)
[2023-09-10 00:29] LABS: Appearance Urine Clear (Clear); Bilirubin Urine Negative (Negative); Blood Urine Negative (Negative); Color Urine Yellow; Glucose Urine UA Negative (Negative); Ketones Urine 2+ (Negative); Leukocyte Esterase Urine Negative (Negative); Nitrite Urine Negative (Negative); Protein Urine Negative (Negative); Specific Gravity Urine > 1.045 (1.000-1.030); Urobilinogen Urine Negative (Negative); pH Urine 6.5 (4.5-7.5)
[2023-09-10] MEDS: PLASMA-LYTE A 1,000 ML IV SCH ×3 (02:22→17:57)
[2023-09-10 07:08] LABS: Basophils # (auto) 0.01 K/uL (0.00-0.20); Basophils % (auto) 0.3 %; Eosinophils # (auto) 0.11 K/uL (0.00-0.50); Eosinophils % (auto) 2.9 %; Hematocrit (blood only) 36.3 % (37.0-47.0); Hemoglobin 12.3 g/dl (12.0-16.0); Immature Granulocytes # (auto) 0.01 K/uL (0.01-0.20); Immature Granulocytes % (auto) 0.3 %; Lymphocytes # (auto) 1.09 K/uL (1.20-3.40); Lymphocytes % (auto) 28.4 %; Mean Corpuscular Hemoglobin 29.8 pg (25.0-34.0); Mean Corpuscular Hgb Conc 33.9 g/dL (32.0-36.0); Mean Corpuscular Volume 87.9 fL (80.0-100.0); Mean Platelet Volume 10.4 fL (9.4-12.4); Monocytes # (auto) 0.31 K/uL (0.11-0.59); Monocytes % (auto) 8.1 %; Neutrophils # (auto) 2.31 K/uL (1.40-6.50); Platelet Count 196 K/uL (130-400); RDW Coefficient of Variation 12.3 % (11.5-14.5); RDW Standard Deviation 39.5 fL (36.4-46.3); Red Blood Count 4.13 M/uL (4.20-5.40); White Blood Count 3.84 K/ul (4.8-10.8)
[2023-09-10 07:38] LABS: Albumin Globulin Ratio 1.5 (0.9-2); Albumin Level 3.5 gm/dl (3.4-5.0); BUN Creatinine Ratio 20.5 (10-20); Bilirubin,Total 0.6 mg/dl (0.2-1.0); Calcium 8.8 mg/dl (8.6-10.3); Creatinine Clr Calc Pharmacy 83.6 ml/min; Est GFR (African American) 119.4 ml/min; Globulin 2.3 gm/dl (2.5-4.0); Potassium 3.7 mmol/L (3.5-5.1); Total Protein 5.8 gm/dl (6.0-8.3)
[2023-09-10 07:46] LABS: Prothrombin Time 10.9 Seconds (9.0-12.0)
[2023-09-10 07:54] LABS: Thyroid Stimulating Hormone 5.217 uIu/ml (0.300-4.500)
[2023-09-10 08:29] LABS: T4 Free Thyroxine 0.74 ng/dl (0.61-1.60)
--- NOTE | 2023-09-10 09:05 | Electrocardiogram Report ---
Test Reason : Blood Pressure : / mmHG Vent. Rate : 084 BPM Atrial Rate : 084 BPM P-R Int : 152 ms QRS Dur : 080 ms QT Int : 398 ms P-R-T Axes : 086 076 062 degrees QTc Int : 470 ms Normal sinus rhythm Nonspecific T wave abnormality Anterior leads Abnormal ECG When compared with ECG of 10-OCT-2017 17:09, Nonspecific T wave abnormality now evident in Anterior leads Confirmed by Rylan Camacho ([id number]) on 09/10/2023 9:05:27 AM Referred By: Opal Isidro Confirmed By:Rylan Camacho
--- NOTE | 2023-09-10 09:09 | Gastrointestinal Consultation ---
Date of Consultation September 10, 2023 Assessment & Plan (1) Pancreatic mass: 67 year old female with abd pain, imaging with a 2.6 cm pancreas head/neck mass. NPO after midnight Tentative plan for EUS-FNA Saturday If schedule is unable to accommodate, we can potentially complete this study Saturday We appreciate assistance in the management of any serological abnormality and corrections to include: hemoglobin >7, INR <2, platelets >50,000, potassium levels >3.5 but <5.3, and sodium levels within 5 points of the reference range prior to endoscopic evaluation. Thank you for allowing us to participate in the care of this patient. Please call with any acute changes, questions or concerns. Please see addendum below with additional recommendation from my supervising physician. Supervising Physician Co-Signing Physician Notes I have personally seen and examined the patient with VISH Nunez on 09/10/23. Her note reflects my exam and findings. I agree with her impression and plan. EUS scheduled. Marino Spain MD History of Present Illness Reason for Consultation: pancreas mass Requesting Physician: Willi Attending Physician: Jess Márquez MD History of Present Illness 67 year old female with pancreas mass directly admitted for further workup. Pt was seen and evaluated, chart reviewed. Not fluent in Occitan, requesting I speak to her in place of an parking worker. Notes that she has been having some abd pain. Went to the ED in [facility] without a diagnosis. Was frustrated went to [place] - had further imaging and a pancreas mass was identified. [place]ame back [place] to discuss treatment pains and biopsy. Presently reports upper abd pain. No nausea, vomiting. Denies wieght loss to me. CTAP 2022: There is an approximately 2.6 cm ill-defined mass lesion arising from the pancreatic head/neck as detailed above. A pancreatic adenocarcinoma is the diagnosis of exclusion. Allergies Allergy/AdvReac Type Severity Reaction Status Date / Time doxycycline Allergy Severe RED Verified 09/09/23 17:07 SPLOTCHES ephedrine AdvReac Severe Blurry Verified 09/09/23 17:07 Vision with adult dose, child dose--OKAY Home Medications Medication Instructions Recorded Confirmed Type No Known Home Medications 09/09/23 09/09/23 History Patient History Medical History (Updated 09/11/23 @ 08:55 by Darrin England MD) Pancreatic mass Subclinical hypothyroidism Surgical History History of exploratory laparotomy done in [place]. for abd pain, nothing found History of colonoscopy History of surgery left eyebrow cyst removal by dr. lester Social History Smoking Status: Never smoker Second Hand Exposure: No; Hx Alcohol Use: No Hx Substance Use: No Preferred Language: Mandarin Greek Communication Ability: Effective Communication Tools: IPad and Language Line Bass String Winder Bass String Winder Required: No Beliefs That Will Affect Care: None Current Living Situation: Spouse Current Living Situation Comment: lives at home with , independent Other Information That Helps Us Care for You: No Feels Safe at Home: Yes Safety Concerns: Feels Safe At This Time Assistive Devices: Cane Review of Systems Review of Systems: All systems reviewed & are unremarkable except as noted in HPI & below Physical Exam Constitutional: WD/WN, vitals as above Respiratory: normal respiratory effort, lungs clear to auscultation Cardiovascular: Rate/Rhythm: regular rate and regular rhythm Gastrointestinal (Abdomen): normal bowel sounds, soft, nontender, no hepatosplenomegaly Skin: no rashes, warm and dry Results & Data Vital Signs (Past 12 Hours) Vital Signs Temp Pulse Resp BP Pulse Ox O2 Del Method 09/10/23 07:57 36.6 C 67 18 126/71 100 Room Air 09/09/23 21:20 36.5 C 66 18 135/75 98 Room Air Laboratory Results 09/10/23 09/10/23 09/09/23 Range/Units 06:50 00:15 15:43 WBC 3.84 L 4.76 L (4.8-10.8) K/ul RBC 4.13 L 4.33 (4.20-5.40) M/uL Hgb 12.3 12.9 (12.0-16.0) g/dl Hct 36.3 L 37.8 (37.0-47.0) % MCV 87.9 87.3 (80.0-100.0) fL MCH 29.8 29.8 (25.0-34.0) pg MCHC 33.9 34.1 (32.0-36.0) g/dL RDW Std Deviation 39.5 39.6 (36.4-46.3) fL RDW Coeff of Marlo 12.3 12.3 (11.5-14.5) % Plt Count 196 216 (130-400) K/uL MPV 10.4 10.5 (9.4-12.4) fL Immature Gran % (Auto) 0.3 0.2 % Neut % (Auto) 60.0 60.3 % Lymph % (Auto) 28.4 30.3 % [place] % (Auto) 8.1 6.9 % Eos % (Auto) 2.9 2.1 % Baso % (Auto) 0.3 0.2 % Neut # (Auto) 2.31 2.87 (1.40-6.50) K/uL Lymph # (Auto) 1.09 L 1.44 (1.20-3.40) K/uL [place] # (Auto) 0.31 0.33 (0.11-0.59) K/uL Eos # (Auto) 0.11 0.10 (0.00-0.50) K/uL Baso # (Auto) 0.01 0.01 (0.00-0.20) K/uL Immature Gran # (Auto) 0.01 0.01 (0.01-0.20) K/uL PT 10.9 10.9 (9.0-12.0) Seconds INR 1.0 1.0 (0.9-1.1) Sodium 140 136 (136-145) mmol/L Potassium 3.7 3.5 (3.5-5.1) mmol/L Chloride 109 H 105 (98-107) mmol/L Carbon Dioxide 26 24 (21-32) mmol/L Anion Gap 5 7 (3-11) BUN 9 9 (6-23) mg/dl Creatinine 0.44 L 0.53 L (0.6-1.2) mg/dl Est Cr Clr Drug Dosing 83.6 Not Reportable Est GFR ( Amer) 119.4 112.3 ml/min Est GFR (Non-Af Amer) 103.0 96.9 ml/min BUN/Creatinine Ratio 20.5 H 17.0 (10-20) Glucose 86 99 (70-99(Fasting)) mg/dl Calcium 8.8 9.1 (8.6-10.3) mg/dl Total Bilirubin 0.6 0.6 (0.2-1.0) mg/dl AST 14 15 (13-39) U/L ALT 7 8 (7-52) U/L Alkaline Phosphatase 62 72 (34-104) U/L Total Protein 5.8 L 6.7 (6.0-8.3) gm/dl Albumin 3.5 4.0 (3.4-5.0) gm/dl Globulin 2.3 L 2.7 (2.5-4.0) gm/dl Albumin/Globulin Ratio 1.5 1.5 (0.9-2) Lipase 174 H (11-82) U/L TSH 5.217 H (0.300-4.500) uIu/ml Free T4 0.74 (0.61-1.60) ng/dl Urine Color Yellow Urine Appearance Clear (Clear) Urine pH 6.5 (4.5-7.5) Ur Specific [place] > 1.045 H (1.000-1.030) Urine Protein Negative (Negative) Urine Glucose (UA) Negative (Negative) Urine Ketones 2+ H (Negative) Urine Blood Negative (Negative) Urine Nitrite Negative (Negative) Urine Bilirubin Negative (Negative) Urine Urobilinogen Negative (Negative) Ur Leukocyte Esterase Negative (Negative)
--- NOTE | 2023-09-10 12:39 | Surgery Consultation ---
Date of Consultation September 10, 2023 Assessment & Plan (1) Pancreatic cancer: will plan Aport in AM risks explained in detail History of Present Illness Attending Physician: Jess Márquez MD History of Present Illness This is a 67 year old female with pancreas CA. There is an approximately 2.6 cm ill-defined mass lesion arising from the pancreatic head/neck as detailed above. She is scheduled for EUS tomorrow and will plan an Aport tomorrow. Allergies Allergy/AdvReac Type Severity Reaction Status Date / Time doxycycline Allergy Severe RED Verified 09/09/23 17:07 SPLOTCHES ephedrine AdvReac Severe Blurry Verified 09/09/23 17:07 Vision with adult dose, child dose--OKAY Home Medications Medication Instructions Recorded Confirmed Type No Known Home Medications 09/09/23 09/09/23 History Patient History Surgical History History of exploratory laparotomy done in [place]. for abd pain, nothing found History of colonoscopy History of surgery left eyebrow cyst removal by dr. lester Social History Smoking Status: Never smoker Second Hand Exposure: No; Hx Alcohol Use: No Hx Substance Use: No Preferred Language: Mandarin [place] Communication Ability: Effective Communication Tools: IPad and Language Line Conventions Reservationist Conventions Reservationist Required: No Beliefs That Will Affect Care: None Current Living Situation: Spouse Current Living Situation Comment: lives at home with , independent Other Information That Helps Us Care for You: No Feels Safe at Home: Yes Safety Concerns: Feels Safe At This Time Assistive Devices: Cane Review of Systems Constitutional: + anorexia; no fever and no chills Eyes: no problem reported Ear, Nose, Mouth, Throat: no problem reported Respiratory: no cough and no dyspnea Cardiovascular: no chest pain Gastrointestinal: + abdominal pain; no nausea and no vomit ing Genitourinary: no dysuria Musculoskeletal: + back pain; no neck pain Integumentary: no problem reported Neurologic: no problem reported Psychiatric: no problem reported Endocrine: no problem reported Hematologic / Lymphatic: no problem reported Allergy / Immunological: no problem reported Physical Exam Constitutional: + thin Eyes: PERRL, conjunctivae normal, anicteric sclerae ENMT: external ear and nose normal, oropharynx normal Neck: trachea midline Respiratory: normal respiratory effort, lungs clear to auscultation Cardiovascular: RRR, no murmur, no edema Gastrointestinal (Abdomen): Inspection/Auscultation: abdomen normal to inspection and normal bowel sounds; abdomen not distended Percussion/Palpation: abdomen soft; abdomen nontender Musculoskeletal: Head/Neck/Chest: normocephalic and head atraumatic Skin: no rashes, warm and dry Results & Data Vital Signs (Past 12 Hours) Vital Signs Temp Pulse Resp BP Pulse Ox O2 Del Method 09/10/23 07:57 36.6 C 67 18 126/71 100 Room Air Diagnostic Findings CT SCAN OF THE ABDOMEN COMBO PANCREAS PROTOCOL CLINICAL HISTORY: Pancreatic mass. COMPARISON STUDY: Abdominal ultrasound dated 10/04/2017. TECHNIQUE: Before and following the IV administration of 118 cc of Optiray 320, CT scan of the abdomen is performed from the lung bases to the pelvic inlet using a pancreas protocol. Images are reviewed in the axial, sagittal, and coronal planes. IV contrast was administered without complication. A dose lowering technique was utilized adhering to the principles of ALARA. The examination is modestly degraded by motion artifact. CT DOSE: 684.79 mGy.cm FINDINGS: Lung bases: The heart is normal in size and without pericardial effusion. The lung bases are clear noting dependent atelectasis. Liver: The contrast-enhanced liver is normal in size, contour, and attenuation. Fatty infiltration is seen adjacent to falciform ligament. There is no intrahepatic biliary ductal dilatation. Hepatic and portal vasculature: Hepatic arterial anatomy is conventional. The hepatic veins, the portal veins, the superior mesenteric vein, and the splenic vein are patent. The mass lesion is not clearly approximate the splenic vein. Gallbladder: Unremarkable. Spleen: Normal in size and attenuation. Pancreas: There is a heterogeneous and infiltrative low-attenuation mass lesion centered in the pancreatic head/neck. This is best seen on axial image #107 of the portal venous phase series and measures roughly 2.6 x 2.5 x 2.3 cm. The upstream pancreatic duct is significantly dilated, measuring up to 9 mm diameter. The mass lesion appears to encase the gastroduodenal artery. This closely approximates and may invade the adjacent gastroduodenal junction. A 6 cm cystic focus is suggested in the uncinate process on image #128. Adrenal glands: Unremarkable. Kidneys: The contrast enhanced kidneys are normal in size and without hydronephrosis. No renal calculi are identified on the unenhanced series. The kidneys enhance symmetrically. An 8 mm cyst is seen on the left. Abdominal vasculature: The abdominal aorta is normal in course and caliber noting mild atherosclerotic calcification. No dissection is seen. Bowel: A surgical clip is noted in the stomach. Imaged portions of the small bowel and colon show no evidence of obstruction. There is moderate colonic fecal retention. Peritoneum: There is no intraperitoneal free air or abdominal ascites. Lymphadenopathy: None. Skeletal structures: The skeletal structures are osteopenic. No lytic or blastic lesions are seen. IMPRESSION: 1. There is an approximately 2.6 cm ill-defined mass lesion arising from the pancreatic head/neck as detailed above. A pancreatic adenocarcinoma is the diagnosis of exclusion. 2. The mass does not clearly approximate the superior mesenteric vessels, but does appear to encase the gastroduodenal artery. The lesion closely approximates and may invade the adjacent gastroduodenal junction. 3. There is no evidence of intra-abdominal metastatic disease. 4. Additional findings as above.
[2023-09-10] MEDS ORDERED: bisacodyL 10 MG SUPP PR STA (16:35)
[2023-09-10] MEDS ORDERED: SENNA 8.6 MG TAB PO PRN (16:36)
[2023-09-10] MEDS ORDERED: oxyCODONE HCL IR 5 MG TAB (IMMEDIATE RELEASE) PO PRN (16:36)
--- NOTE | 2023-09-10 16:41 | Hospitalist Progress Note ---
Date of Service September 10, 2023 Assessment & Plan (1) Pancreatic cancer: Plan: Pancreatic Cancer - new diagnosis probable pancreatic cancer based on pancreas CT with the following findings: "There is a heterogeneous and infiltrative low- attenuation mass lesion centered in the pancreatic head/neck. This is best seen on axial image #107 of the portal venous phase series and measures roughly 2.6 x 2.5 x 2.3 cm. The upstream pancreatic duct is significantly dilated, measuring up to 9 mm diameter. The mass lesion appears to encase the gastroduodenal artery. This closely approximates and may invade the adjacent gastroduodenal junction. A 6 cm cystic focus is suggested in the uncinate process on image #128." It does not appear to radiographically affect the superior mesenteric vessels. no evidence of intra-abdominal metastatic disease - CTAchest: No evidence of PE, no airspace consolidations or pleural effusion, no evidence of intrathoracic metastatic disease. - Pt has not had biopsy; GI consulted for EGD-EUS bx planned for tomorrow Anticipate neoadjuvant chemotherapy yoanna, Dr. Isidro following General surgery consulted for port placement planned for tomorrow lipase is mildly elevated related to pancreatic duct obstruction by mass Multimodal pain control. Tylenol 1 g every 8 hours, breakthrough hydromorphone scale 0.25-0.5 mg every 4 hours. Avoid NSAIDs. PRN Zofran. added low-dose oral oxycodone, work on transition to regimen that she can manage at home - Ca 19-9 ordered, pending - After chemo --> being set up with [facility] Dr. [facility] - CBC notable today for mild lymphopenia, anemia with hematocrit of 36, stable - a.m. CBC and CMP (2) Atypical chest pain: Plan: History of atypical chest pain Nonischemic, patient on prior patient's reports that noted some shortness of breath and a feeling of chest pain but only when she was acutely upset/angry. No chest pain outside of this. No chest pain with exertion previously. - Hx of esophagitis on egd in [place], reports this pain improved but the pain in her low ribs, LUQ has persisted continue PPI - reviewed EKG: Nonspecific anterior ST abnormality is present (3) Subclinical hypothyroidism: Plan: Subclinical hyperthyroidism Reportedly mildly elevated TSH. Transiently on levothyroxine, but stopped weeks ago as did not feel any different - Repeat TSH mildly elevated / T4 normal - there is little evidence base for treating subclinical hypothyroidism provides benefit, however, electively she could choose to go back on levothyroxine as previously - continue monitor TSH in outpatient setting in case worsening Plan DVT prophylaxis: jalil Luevano Admission and Anticipated Discharge Date Admission Date: September 09, 2023 Subjective continues to have epigastric pain radiating to the back, partially relieved by lower dose IV hydromorphone but was better relieved by the higher dose given in the ED. No nausea or vomiting. She continues to have constipation last stool was Saturday and was pellet-like small and hard. She is feeling some abdominal bloating she thinks related to constipation Physical Exam 2 Physical Exam: PHYSICAL EXAMINATION Last 24h vital signs reviewed, see documentation in flowsheet General: comfortable appearing, no distress, very pleasant HEENT: Normocephalic, atraumatic, pupils round and equal, sclerae anicteric, no conjunctival injection, moist mucus membranes Lungs: Normal respiratory effort. Clear to auscultation bilaterally. No RRW Heart: Regular rate and rhythm, no murmurs. No JVD Abdomen: Soft, mildly tender to deep palpation in mid upper abdominal area, no rebound rigidity or guarding, nondistended. Bowel sounds present. Extremities: Warm, dry, well-perfused. No extremity edema. Neuro: Alert and oriented x 4, face symmetric, moves 4 extremities well Psych: Normal affect and behavior Results & Data Results & Data Vital Signs (Past 12 Hours) Vital Signs Temp Pulse Resp BP Pulse Ox O2 Del Method 09/10/23 15:39 36.7 C 67 18 106/66 95 Room Air 09/10/23 07:57 36.6 C 67 18 126/71 100 Room Air Laboratory Results 09/10/23 06:50 09/10/23 06:50 PG Care Time/CCT Total # of Minutes Spent Total Time Spent with Patient: Total time spent is greater than 50% in coordination of care (as documented) at patient's floor/unit and/or counseling patient: Coding Level of Care Code 37190 SUB INP/OBS CARE 2/35MIN Diagnoses Pancreatic cancer C25.9 Atypical chest pain R07.89 Subclinical hypothyroidism E03.8
[2023-09-10] MEDS: POLYETHYLENE (MIRALAX) 17 GM PACK PO SCH (17:54)
[2023-09-11] MEDS: PLASMA-LYTE A 1,000 ML IV SCH ×2 (01:13→08:57)
[2023-09-11 07:13] LABS: Basophils # (auto) 0.01 K/uL (0.00-0.20); Basophils % (auto) 0.3 %; Eosinophils # (auto) 0.11 K/uL (0.00-0.50); Eosinophils % (auto) 2.8 %; Hematocrit (blood only) 34.3 % (37.0-47.0); Hemoglobin 11.7 g/dl (12.0-16.0); Immature Granulocytes # (auto) 0.01 K/uL (0.01-0.20); Immature Granulocytes % (auto) 0.3 %; Lymphocytes # (auto) 1.07 K/uL (1.20-3.40); Mean Corpuscular Hemoglobin 29.8 pg (25.0-34.0); Mean Corpuscular Hgb Conc 34.1 g/dL (32.0-36.0); Mean Corpuscular Volume 87.3 fL (80.0-100.0); Mean Platelet Volume 10.7 fL (9.4-12.4); Monocytes # (auto) 0.31 K/uL (0.11-0.59); Monocytes % (auto) 7.8 %; Neutrophils # (auto) 2.46 K/uL (1.40-6.50); Neutrophils % (auto) 61.8 %; Platelet Count 192 K/uL (130-400); RDW Coefficient of Variation 12.4 % (11.5-14.5); RDW Standard Deviation 39.8 fL (36.4-46.3); Red Blood Count 3.93 M/uL (4.20-5.40); White Blood Count 3.97 K/ul (4.8-10.8)
[2023-09-11] MEDS: POLYETHYLENE (MIRALAX) 17 GM PACK PO SCH (08:07)
--- NOTE | 2023-09-11 08:52 | Anesthesiology Consultation ---
Date of Service September 11, 2023 Assessment & Plan (1) Encounter for pre-operative examination: Chart Review Chart Review: Acceptable Risk for Surgery History Surgery Operation Date: 09/11/23 10:40 Proposed Procedures p Infusaport Insertion - Carrington Knox MD Operation Date: 09/11/23 13:30 Proposed Procedures p Endoscopic Ultrasonography Eran - Dilcia Grady DO Height/Weight Height: 5 ft Weight: 43.9 kg Allergies Allergy/AdvReac Type Severity Reaction Status Date / Time doxycycline Allergy Severe RED Verified 09/09/23 17:07 SPLOTCHES ephedrine AdvReac Severe Blurry Verified 09/09/23 17:07 Vision with adult dose, child dose--OKAY Medications Home Medications Medication Instructions Recorded Confirmed Last Taken No Known Home Medications 09/09/23 09/09/23 Unknown Active Medications Generic Name Dose Route Start Last Admin Trade Name Freq PRN Reason Stop Dose Admin Enoxaparin Sodium 40 mg 09/11/23 09:00 09/11/23 07:51 Enoxaparin Inj 40 Mg/0.4 Ml Syr SQ 10/11/23 08:59 Not Given QAM [facility] Hydromorphone HCl 0.25 mg 09/09/23 18:00 09/10/23 09:01 Hydromorphone Inj 0.5 Mg/0.5 Ml Syr IV 09/23/23 17:25 0.25 mg Q4H PRN Administration Moderate Pain (4,5,6) on NRS Hydromorphone HCl 0.5 mg 09/09/23 18:00 09/10/23 20:04 Hydromorphone Inj 0.5 Mg/0.5 Ml Syr IV 09/23/23 17:25 0.5 mg Q4H PRN Administration Severe Pain (7,8,9,10) on NRS Acetaminophen 1,000 mg in 100 mls @ 400 mls/hr 09/09/23 17:26 09/09/23 18:36 Ofirmev IV 09/12/23 17:25 Infused Q8H PRN Infusion Fever/Mild Pain (Pain 1,2,3) Parenteral Electrolytes 1,000 mls @ 125 mls/hr 09/09/23 17:30 09/11/23 01:13 Plasma-Lyte A Ph 7.4 IV 10/09/23 17:29 125 mls/hr .Q8H MICHELLE Administration Polyethylene Glycol 17 gm 09/10/23 17:00 09/11/23 08:07 Polyethylene (Miralax) 17 Gm Pack PO 10/10/23 16:59 Not Given DAILY MICHELLE Past Medical History Medical History (Updated 09/11/23 @ 08:55 by Darrin England MD) Pancreatic mass Subclinical hypothyroidism Past Surgical History Surgical History History of exploratory laparotomy done in [place]. for abd pain, nothing found History of colonoscopy History of surgery left eyebrow cyst removal by dr. lester Social History Smoking Status: Never smoker Hx Alcohol Use: No Hx Substance Use: No substance use type: does not use Physical Exam Vital Signs Last Vital Signs Temp 36.7 C 09/11/23 08:04 Pulse 66 09/11/23 08:04 Resp 18 09/11/23 08:04 BP 106/65 09/11/23 08:04 Pulse Ox 96 09/11/23 08:04 O2 Del Method Room Air 09/11/23 08:04 Testing Laboratory Results 09/11/23 06:37 09/10/23 06:50 PT 10.9 Seconds (9.0-12.0) 09/10/23 06:50 INR 1.0 (0.9-1.1) 09/10/23 06:50 Urine Color Yellow 09/10/23 00:15 Urine Appearance Clear (Clear) 09/10/23 00:15 Urine pH 6.5 (4.5-7.5) 09/10/23 00:15 Ur Specific Ava > 1.045 (1.000-1.030) H 09/10/23 00:15 Urine Protein Negative (Negative) 09/10/23 00:15 Urine Glucose (UA) Negative (Negative) 09/10/23 00:15 Urine Ketones 2+ (Negative) H 09/10/23 00:15 Urine Nitrite Negative (Negative) 09/10/23 00:15 Ur Leukocyte Esterase Negative (Negative) 09/10/23 00:15 Electrocardiogram Date: 09/09/23 Findings: + NSR @ (84) and + NSST changes
[2023-09-11] MEDS ORDERED: ENOXAPARIN INJ 40 MG/0.4 ML SYR SQ SCH (09:00)
--- NOTE | 2023-09-11 09:15 | Surgery Progress Note ---
Date of Service September 11, 2023 Assessment & Plan (1) Pancreatic mass: Plan: no confirmed diagnosis at this time for EUS and FNA today would not recommend port until after confirmed diagnosis, also would not perform with biopsy Admission and Anticipated Discharge Date Admission Date: September 09, 2023 Subjective patient without complaints Review of Systems Constitutional: no fever and no chills Respiratory: no cough and no dyspnea Cardiovascular: no chest pain Gastrointestinal: + abdominal pain; no nausea and no vomit ing Genitourinary: no dysuria Musculoskeletal: no back pain Physical Exam Constitutional: WD/WN, vitals as above Respiratory: normal respiratory effort, lungs clear to auscultation Cardiovascular: RRR, no murmur, no edema Gastrointestinal (Abdomen): Inspection/Auscultation: abdomen normal to inspection and normal bowel sounds; abdomen not distended Percussion/Palpation: abdomen soft; abdomen nontender Musculoskeletal: Head/Neck/Chest: normocephalic and head atraumatic Skin: no rashes, warm and dry Psychiatric: Orientation: alert Results & Data Vital Signs (Past 12 Hours) Vital Signs Temp Pulse Resp BP Pulse Ox O2 Del Method 09/11/23 08:04 36.7 C 66 18 106/65 96 Room Air
--- NOTE | 2023-09-11 10:01 | Communication Note ---
Date of Service: September 11, 2023 Pt remains NPO for tentative EUS-FNA today. Discussed with pt and spouse, risks/benefits/alternatives. Verbalized understanding. We appreciate assistance in the management of any serological abnormality and corrections to include: hemoglobin >7, INR <2, platelets >50,000, potassium levels >3.5 but <5.3, and sodium levels within 5 points of the reference range prior to endoscopic evaluation. Thank you for allowing us to participate in the care of this patient. Please call with any acute changes, questions or concerns. Please see addendum below with additional recommendation from my supervising physician.
--- NOTE | 2023-09-11 12:22 | History & Physical Bridge Note ---
Date of Service September 11, 2023 History & Physical Bridge Note I have examined the patient, reviewed the History & Physical and in the interval since the performance of the History & Physical I have noted the following changes of clinical significance: no changes noted. We are planning to do endoscopic ultrasound today for further evaluation of the suspicious appearing pancreatic mass seen on imaging studies. We discussed risks and benefits of the procedure to include bleeding, infection, perforation, pain, pancreatitis and insufficient cellularity.It does not appear that the patient has biliary obstruction as her liver enzymes appear to be within limits and there does not appear to be significant changes in the biliary tree at the present time. Therefore ERCP with be done today. Consent for today's procedures were obtained from the patient with her and a hand stonecutter present (Mandarin speaker). CT Pancreas: There is a heterogeneous and infiltrative low-attenuation mass lesion centered in the pancreatic head/neck. This is best seen on axial image #107 of the portal venous phase series and measures roughly 2.6 x 2.5 x 2.3 cm. The upstream pancreatic duct is significantly dilated, measuring up to 9 mm diameter. The mass lesion appears to encase the gastroduodenal artery. This closely approximates and may invade the adjacent gastroduodenal junction. A 6 cm cystic focus is suggested in the uncinate process on image #128.
[2023-09-11] MEDS: LACTATED RINGER'S 1,000 ML IV SCH ×2 (12:26→15:16)
[2023-09-11] MEDS ORDERED: ATROPINE SULFATE 0.1 MG/ML 10ML SYR IV PRN (12:43)
[2023-09-11] MEDS ORDERED: ONDANSETRON INJ 2 MG/ML 2 ML VIAL IV PRN (12:43)
[2023-09-11] MEDS ORDERED: fentaNYL citrate PF 100 MCG/2 ML VIAL IV PRN (12:43)
[2023-09-11] MEDS ORDERED: HYDROmorphone INJ 1 MG/ML SYRINGE IV PRN (12:43)
[2023-09-11] MEDS ORDERED: PROMETHAZINE HCL 6.25 MG in SODIUM CHLORIDE 0.9% 50 ML IV PRN (12:43)
[2023-09-11] MEDS ORDERED: fentaNYL citrate PF 100 MCG/2 ML VIAL ONE ×2 (13:32→14:08)
[2023-09-11] MEDS ORDERED: GLYCOPYRROLATE 0.2 MG/ML VIAL ONE (13:33)
[2023-09-11] MEDS ORDERED: ONDANSETRON INJ 2 MG/ML 2 ML VIAL ONE (13:33)
[2023-09-11] MEDS ORDERED: LIDOCAINE 2% 2 ML VIAL/AMP(20MG/ML) INFIL ONE (13:33)
[2023-09-11] MEDS ORDERED: PROPOFOL IV EMULSION 10 MG/ML 20 ML VIAL IV ONE ×2 (13:33→14:06)
[2023-09-11] MEDS ORDERED: CIPROFLOXACIN 400MG / 200ML D5W IV ONE (13:54)
--- NOTE | 2023-09-11 13:58 | GI REPORT ---
Patient Name: Davida Scanlon Procedure Date: 09/11/2023 1:51 PM Date of : 1955 Admit Type: Inpatient Age: 67 Gender: Female Attending MD: Dilcia Grady DO, Procedure: Upper GI endoscopy Providers: Dilcia Grady DO Referring MD: Opal Isidro Md, Jess Márquez Md Indications: Epigastric abdominal pain, Abnormal CT of the GI tract Medicines: Monitored Anesthesia Care Complications: No immediate complications. Estimated blood loss: Minimal. Estimated Blood Loss: Estimated blood loss was minimal. Procedure: Pre-Anesthesia Assessment: - Prior to the procedure, a History and Physical was performed, and patient medications, allergies and sensitivities were reviewed. The patient's tolerance of previous anesthesia was reviewed. - The risks and benefits of the procedure and the sedation options and risks were discussed with the patient. All questions were answered and informed consent was obtained. - Patient identification and proposed procedure were verified prior to the procedure by the physician, the nurse and the ibm bpm developer. The procedure was verified in the procedure room. - Pre-procedure physical examination revealed no contraindications to sedation. - ASA Grade Assessment: II - A patient with mild systemic disease. - After reviewing the risks and benefits, the patient was deemed in satisfactory condition to undergo the procedure. - The anesthesia plan was to use monitored anesthesia care (MAC). - Immediately prior to administration of medications, the patient was re-assessed for adequacy to receive sedatives. - The heart rate, respiratory rate, oxygen saturations, blood pressure, adequacy of pulmonary ventilation, and response to care were monitored throughout the procedure. - The physical status of the patient was re-assessed after the procedure. After obtaining informed consent, the endoscope was passed under direct vision. Throughout the procedure, the patient's blood pressure, pulse, and oxygen saturations were monitored continuously. The Endoscope was introduced through the mouth, and advanced to the third part of duodenum. The upper GI endoscopy was accomplished without difficulty. The patient tolerated the procedure well. Findings: The examined esophagus was normal. The Z-line was regular and was found 38 cm from the incisors. Diffuse mild inflammation characterized by congestion (edema), erythema and granularity was found in the entire examined stomach. Biopsies were taken with a cold forceps for histology. The pathology specimen was placed into Bottle A. Estimated blood loss was minimal. The examined duodenum was normal. Impression: - Normal esophagus. - Z-line regular, 38 cm from the incisors. - Gastritis. Biopsied. - Normal examined duodenum. Recommendation: - Perform an upper endoscopic ultrasound (UEUS) today. - Await pathology results. Dilcia Grady D.O. Dilcia Grady, 09/11/2023 1:58:41 PM This report has been signed electronically. Note Initiated On: 09/11/2023 1:51 PM Number of Addenda: 0 I attest to the content of the Intraoperative Record and orders documented therein, exceptions below {[id number]}
[2023-09-11] MEDS: CIPROFLOXACIN / D5W 400 MG/200 ML BAG IV SCH (14:00)
[2023-09-11] MEDS ORDERED: ESMOLOL HCL INJ 10 MG/ML 10ML VIAL IV ONE (14:12)
--- NOTE | 2023-09-11 14:27 | Post Operative Brief Note ---
Immediate Post Op Note v1 Date of Surgery September 11, 2023 Pre & Post Diagnosis Operation Date: 09/11/23 13:30 Pre-Op Diagnosis: pancreatic mass Post-Op Diagnosis: Pancreatic neck mass I identified the patient and participated in the time-out.: Yes Procedure Operation Date: 09/11/23 13:30 Actual Procedures p EGD Biopsy Cytology - Dilcia Grady DO s Endoscopic Ultrasonography Lower, with cystology - Dilcia Grady DO Surgeon Dilcia Grady DO Sand Molder none Estimated Blood Loss 0 Findings Consistent with Post-Op Diagnosis
--- NOTE | 2023-09-11 14:29 | Communication Note ---
Date of Service: September 11, 2023 The patient underwent endoscopic ultrasound and upper endoscopy this afternoon. She was found to have evidence of mild gastritis, biopsies were obtained to evaluate for evidence of H. pylori infection. Patient was also found to have a 30 mm pancreatic mass arising from the region of the pancreatic neck. EUS staging is T3 N0 M0 if cytology is positive for malignancy. Recommendations Ciprofloxacin twice daily x 5 days Advance diet as tolerated May resume anticoagulation in 24 hours Outpatient referral to surgical oncology for an opinion with regard to surgical resectability Oncology referral
--- NOTE | 2023-09-11 14:38 | GI REPORT ---
Patient Name: Davida Scanlon Procedure Date: 09/11/2023 1:58 PM Date of : 1955 Admit Type: Inpatient Age: 67 Gender: Female Attending MD: Dilcia Grady DO, Procedure: Upper EUS Providers: Dilcia Grady DO Referring MD: Opal Isidro Md, Jess Márquez Md Indications: Suspected mass in pancreas on CT scan Medicines: Monitored Anesthesia Care Complications: No immediate complications. Estimated blood loss: Minimal. Estimated Blood Loss: Estimated blood loss was minimal. Procedure: Pre-Anesthesia Assessment: - Prior to the procedure, a History and Physical was performed, and patient medications, allergies and sensitivities were reviewed. The patient's tolerance of previous anesthesia was reviewed. - The risks and benefits of the procedure and the sedation options and risks were discussed with the patient. All questions were answered and informed consent was obtained. - Patient identification and proposed procedure were verified prior to the procedure by the physician, the nurse and the windows server support technician. The procedure was verified in the pre-procedure area in the procedure room. - Pre-procedure physical examination revealed no contraindications to sedation. - ASA Grade Assessment: II - A patient with mild systemic disease. - After reviewing the risks and benefits, the patient was deemed in satisfactory condition to undergo the procedure. - The anesthesia plan was to use monitored anesthesia care (MAC). - Immediately prior to administration of medications, the patient was re-assessed for adequacy to receive sedatives. - The heart rate, respiratory rate, oxygen saturations, blood pressure, adequacy of pulmonary ventilation, and response to care were monitored throughout the procedure. - The physical status of the patient was re-assessed after the procedure. After obtaining informed consent, the endoscope was passed under direct vision. Throughout the procedure, the patient's blood pressure, pulse, and oxygen saturations were monitored continuously. The Endosonoscope was introduced through the mouth, and advanced to the third part of duodenum. The upper EUS was accomplished without difficulty. The patient tolerated the procedure well. Findings: ENDOSONOGRAPHIC FINDING: : There was no sign of significant endosonographic abnormality in the ampulla. No pathologic lymphadenopathy and no masses were identified. There was no sign of significant endosonographic abnormality in the gallbladder. An unremarkable gallbladder, no stones, no biliary sludge and ducts of normal caliber were identified. There was no sign of significant endosonographic abnormality in the visualized portion of the liver. Homogeneous parenchyma and no focal pathology were identified. No lymphadenopathy seen. There was no sign of significant endosonographic abnormality in the left adrenal gland. No abnormal echogenicity was identified. There was no sign of significant endosonographic abnormality in the pancreatic head. No masses. An oval mass was identified in the pancreatic neck. The mass was hypoechoic and heterogenous. The mass measured 32 mm by 28 mm in maximal cross-sectional diameter. The endosonographic borders were poorly-defined. An intact interface was seen between the mass and the superior mesenteric artery, celiac trunk, portal vein, superior mesenteric vein and duodenum suggesting a lack of invasion. I was unable to trace the gastroduodenal artery. the remainder of the pancreas was examined. The endosonographic appearance of parenchyma and the upstream pancreatic duct indicated duct dilation and parenchymal atrophy. Fine needle aspiration for cytology was performed. Color Doppler imaging was utilized prior to needle puncture to confirm a lack of significant vascular structures within the needle path. Four passes were made with the 22 gauge needle using a transduodenal approach. A stylet was used. A surgical physician assistant was present to evaluate the adequacy of the specimen. Final cytology results are pending. Estimated blood loss was minimal. Pancreatic parenchymal abnormalities were noted in the pancreatic body and pancreatic tail. These consisted of atrophy. Dilation of upstream from pancreatic mass was noted to 4 mm. Impression: - There was no sign of significant pathology in the ampulla. - There was no sign of significant pathology in the gallbladder. - There was no evidence of significant pathology in the visualized portion of the liver. - Endosonographic images of the left adrenal gland were unremarkable. - There was no sign of significant pathology in the pancreatic head. - A 32 x 28 mm mass was identified in the pancreatic neck. This was staged T3 N0 Mx by endosonographic criteria. The staging applies if malignancy is confirmed. Fine needle aspiration performed. Recommendation: - Return patient to [facility] for [facility] care. - Advance diet as tolerated today. - Use broad spectrum antibiotics for 5 days. Dilcia Grady D.O. Dilcia Grady, 09/11/2023 2:37:18 PM This report has been signed electronically. Note Initiated On: 09/11/2023 1:58 PM Number of Addenda: 0 I attest to the content of the Intraoperative Record and orders documented therein, exceptions below {[id number]}
[2023-09-11] MEDS ORDERED: LABETALOL HCL IV 5 MG/ML 20ML IV ONE (14:50)
--- NOTE | 2023-09-11 15:50 | Anesthesiology Progress Note ---
Date of Service September 11, 2023 Anesthesia Post Procedure Vital Signs Vital Signs: Temp Pulse Pulse Resp BP Pulse Ox O2 Del Method 09/11/23 15:21 36.8 C 88 16 102/63 97 Room Air 09/11/23 15:00 36.6 C 87 15 108/64 95 Room Air 09/11/23 14:50 36.6 C 89 15 104/68 95 Room Air 09/11/23 14:40 114 H 13 113/67 99 Room Air 09/11/23 14:31 36.7 C 108 H 15 105/62 99 Oxymask 09/11/23 12:10 36.6 C 77 18 100/66 97 Room Air 09/11/23 08:04 36.7 C 66 18 106/65 96 Room Air 09/10/23 20:42 37.1 C 64 16 109/66 98 Room Air 09/10/23 19:59 36.5 C 67 18 113/67 99 Room Air O2 Flow Rate 09/11/23 15:21 09/11/23 15:00 09/11/23 14:50 09/11/23 14:40 09/11/23 14:31 5 09/11/23 12:10 09/11/23 08:04 09/10/23 20:42 09/10/23 19:59 Pain Intensity Abdomen: Pain Intensity: 7 Transfer of Care Handoff Completed per policy Notes Mental Status: alert / awake / arousable and participated in evaluation Patient Amnestic to Procedure: Yes Nausea / Vomiting: adequately controlled Pain: adequately controlled Airway Patency, RR, SpO2: stable & adequate BP & HR: stable & adequate Hydration State: stable & adequate Anesthetic Complications: no major complications apparent and Pt Satisfied with anesthetic care
--- NOTE | 2023-09-11 17:05 | Hospitalist Progress Note ---
Date of Service September 11, 2023 Assessment & Plan (1) Pancreatic cancer: Plan: Pancreatic Cancer - new diagnosis probable pancreatic cancer based on pancreas CT with the following findings: "There is a heterogeneous and infiltrative low- attenuation mass lesion centered in the pancreatic head/neck. This is best seen on axial image #107 of the portal venous phase series and measures roughly 2.6 x 2.5 x 2.3 cm. The upstream pancreatic duct is significantly dilated, measuring up to 9 mm diameter. The mass lesion appears to encase the gastroduodenal artery. This closely approximates and may invade the adjacent gastroduodenal junction. A 6 cm cystic focus is suggested in the uncinate process on image #128." It does not appear to radiographically affect the superior mesenteric vessels. no evidence of intra-abdominal metastatic disease - CTAchest: No evidence of PE, no airspace consolidations or pleural effusion, no evidence of intrathoracic metastatic disease. - GI consulted for EGD-EUS for staging and biopsy completed 09/11 "September 11, 2023 The patient underwent endoscopic ultrasound and upper endoscopy this afternoon. She was found to have evidence of mild gastritis, biopsies were obtained to evaluate for evidence of H. pylori infection. Patient was also found to have a 30 mm pancreatic mass arising from the region of the pancreatic neck. EUS staging is T3 N0 M0 if cytology is positive for malignancy. Recommendations Ciprofloxacin twice daily x 5 days Advance diet as tolerated May resume anticoagulation in 24 hours Outpatient referral to surgical oncology for an opinion with regard to surgical resectability Oncology referral" follow up with Dr. Isidro General surgery consulted for port placement but they do not recommend until tissue diagnosis confirmed - After chemo --> being set up with [facility] Dr. V[facility] Surgical Oncology lipase is mildly elevated related to pancreatic duct obstruction by mass Multimodal pain control. Tylenol 1 g every 8 hours, breakthrough hydromorphone scale 0.25-0.5 mg every 4 hours. Avoid NSAIDs. PRN Zofran. added low-dose oral oxycodone, work on transition to regimen that she can manage at home - discussed today and encouraged to try tonight - Ca 19-9 ordered, pending - follow up pathology from EGD/EUS - discussed with patient and her today, anticipate discharge in AM with outpatient follow up - CBC notable today for mild lymphopenia, anemia with hematocrit of 34, stable (2) Atypical chest pain: Plan: History of atypical chest pain Nonischemic, patient on prior patient's reports that noted some shortness of breath and a feeling of chest pain but only when she was acutely upset/angry. No chest pain outside of this. No chest pain with exertion previously. - Hx of esophagitis on egd in [place], reports this pain improved but the pain in her low ribs, LUQ has persisted - mild gastritis on EGD, biopsied, follow up H. pylori continue PPI - reviewed EKG: Nonspecific anterior ST abnormality is present (3) Subclinical hypothyroidism: Plan: Subclinical hyperthyroidism Reportedly mildly elevated TSH. Transiently on levothyroxine, but stopped weeks ago as did not feel any different - Repeat TSH mildly elevated / T4 normal - there is little evidence base for treating subclinical hypothyroidism provides benefit, however, electively she could choose to go back on levothyroxine as previously - continue monitor TSH in outpatient setting in case worsening Plan DVT prophylaxis: SCDs, lovenox can resume in AM if not discharging home Admission and Anticipated Discharge Date Admission Date: September 09, 2023 Subjective had dose of hydromorphone IV for abdominal pain early am. no nausea. frustrated because things aren't happening very fast and she is worried that the tumor is growing. at bedside. provided reassurance as much as possible. Physical Exam 2 Physical Exam: PHYSICAL EXAMINATION Last 24h vital signs reviewed, see documentation in flowsheet General: awake lying in bed HEENT: Normocephalic, atraumatic, pupils round and equal, sclerae anicteric, no conjunctival injection, moist mucus membranes Lungs: Normal respiratory effort. Heart: deferred Abdomen: Soft, nondistended. Extremities: Warm, dry, well-perfused. No extremity edema. Neuro: Alert and oriented x 4, face symmetric, moves 4 extremities well Psych: Normal affect and behavior Results & Data Results & Data Vital Signs (Past 12 Hours) Vital Signs Temp Pulse Pulse Resp BP Pulse Ox O2 Del Method 09/11/23 15:21 36.8 C 88 16 102/63 97 Room Air 09/11/23 15:00 36.6 C 87 15 108/64 95 Room Air 09/11/23 14:50 36.6 C 89 15 104/68 95 Room Air 09/11/23 14:40 114 H 13 113/67 99 Room Air 09/11/23 14:31 36.7 C 108 H 15 105/62 99 Oxymask 09/11/23 12:10 36.6 C 77 18 100/66 97 Room Air 09/11/23 08:04 36.7 C 66 18 106/65 96 Room Air O2 Flow Rate 09/11/23 15:21 09/11/23 15:00 09/11/23 14:50 09/11/23 14:40 09/11/23 14:31 5 09/11/23 12:10 09/11/23 08:04 Laboratory Results 09/11/23 06:37 09/10/23 06:50 PG Care Time/CCT Total # of Minutes Spent Total Time Spent with Patient: Total time spent is greater than 50% in coordination of care (as documented) at patient's floor/unit and/or counseling patient: Coding Level of Care Code 28654 SUB INP/OBS CARE 2/35MIN Diagnoses Pancreatic cancer C25.9 Atypical chest pain R07.89 Subclinical hypothyroidism E03.8
[2023-09-12] MEDS: CIPROFLOXACIN / D5W 400 MG/200 ML BAG IV SCH ×2 (02:05→13:36)
[2023-09-12] MEDS: ACETAMINOPHEN 1,000 MG/100 ML VIAL IV PRN (07:50)
[2023-09-12] MEDS: POLYETHYLENE (MIRALAX) 17 GM PACK PO SCH (07:53)
[2023-09-12 08:07] LABS: Basophils # (auto) 0.01 K/uL (0.00-0.20); Basophils % (auto) 0.2 %; Eosinophils # (auto) 0.12 K/uL (0.00-0.50); Eosinophils % (auto) 2.7 %; Hematocrit (blood only) 34.6 % (37.0-47.0); Hemoglobin 11.8 g/dl (12.0-16.0); Immature Granulocytes # (auto) 0.01 K/uL (0.01-0.20); Immature Granulocytes % (auto) 0.2 %; Lymphocytes # (auto) 1.02 K/uL (1.20-3.40); Mean Corpuscular Hemoglobin 30.1 pg (25.0-34.0); Mean Corpuscular Hgb Conc 34.1 g/dL (32.0-36.0); Mean Corpuscular Volume 88.3 fL (80.0-100.0); Mean Platelet Volume 10.6 fL (9.4-12.4); Monocytes # (auto) 0.34 K/uL (0.11-0.59); Monocytes % (auto) 7.7 %; Neutrophils # (auto) 2.93 K/uL (1.40-6.50); Neutrophils % (auto) 66.2 %; Platelet Count 190 K/uL (130-400); RDW Coefficient of Variation 12.6 % (11.5-14.5); RDW Standard Deviation 40.9 fL (36.4-46.3); Red Blood Count 3.92 M/uL (4.20-5.40); White Blood Count 4.43 K/ul (4.8-10.8)
--- NOTE | 2023-09-12 09:19 | Surgery Progress Note ---
Date of Service September 12, 2023 Assessment & Plan (1) Pancreatic mass: Plan: await pathology will schedule to see in clinic next week [facility] as outpatient will sign off Admission and Anticipated Discharge Date Admission Date: September 09, 2023 Subjective no complaints Review of Systems Constitutional: no fever and no chills Cardiovascular: no chest pain Gastrointestinal: + abdominal pain Genitourinary: no dysuria Physical Exam Constitutional: WD/WN, vitals as above ENMT: external ear and nose normal, oropharynx normal Respiratory: normal respiratory effort, lungs clear to auscultation Cardiovascular: RRR, no murmur, no edema Gastrointestinal (Abdomen): Inspection/Auscultation: abdomen normal to inspection Percussion/Palpation: abdomen soft; abdomen nontender Results & Data Vital Signs (Past 12 Hours) Vital Signs Temp Pulse Resp BP Pulse Ox O2 Del Method 09/12/23 07:40 36.5 C 70 16 101/61 96 Room Air 09/12/23 04:35 36.8 C 55 L 16 108/62 96 Room Air 09/12/23 01:45 36.6 C 64 16 104/57 L 96 Room Air 09/11/23 21:43 37.1 C 82 16 102/58 L 97 Room Air 09/11/23 21:30 Room Air
--- NOTE | 2023-09-12 10:06 | Discharge Summary ---
Date of Service September 12, 2023 Admission HPI Per Admitting Provider Casey is a 67-year-old female with a past medical history of gallstones and subclinical hypothyroidism who presents as a direct admit via transfer center for evaluation of pancreatic cancer. Patient reports that she was recently diagnosed with pancreatic cancer in [place], returned to [place] Pain in the abdomen/below the ribs bilaterally started 5 months ago. Thryoid was also a little low, but she did not feel better with medication for this. Pain got worse and was seen in [facility]. heart and stomach were normal and was released after 2 days. Pt reports fresutration her cancer was not caught. She went home to [place] for a few weeks and tried herbal medicines which did not work, got an MRI and was found to have pancreatic cancer. They recommended 2 sessions of chemotherapy prior to attempting surgery. Pt reports she does not trust the surgeons in [place] so came back to the for further treatment. [place] the [place] Saturday (3 days ago) and an emergency appoitnment was made with Dr. Isidro who referred her to the ER. Morphine helps the pain, but overall the pain has gradually worsened over the past few weeks and now makes it difficult to sleep. Reduced appetite, able to eat feels full easily but eating does not cause pain. Chronically short of breath due. +constipation, denies diarrhea. No fevers or chills. Had an EGD while in [place], was dx with esophagitis and ?biopsy. Records being sent to [facility]. Principal Diagnosis Pancreatic adenocarcinoma Discharge Exam PHYSICAL EXAMINATION Last 24h vital signs reviewed, see documentation in flowsheet General: awake lying in bed, discussion using phone core checker and for assistance HEENT: Normocephalic, atraumatic, pupils round and equal, sclerae anicteric, no conjunctival injection, moist mucus membranes Lungs: Normal respiratory effort. Heart: deferred Abdomen: Soft, nondistended, mildly tender to palpation in middle upper abdomen. Normal bowel tones present Extremities: Warm, dry, well-perfused. No extremity edema. Neuro: Alert and oriented x 4, face symmetric, moves 4 extremities well Psych: Normal affect and behavior Discharge Data Allergies Allergy/AdvReac Type Severity Reaction Status Date / Time doxycycline Allergy Severe RED Verified 09/09/23 17:07 SPLOTCHES ephedrine AdvReac Severe Blurry Verified 09/09/23 17:07 Vision with adult dose, child dose--OKAY Consultations 09/09/23 20:10 Consult General Surgery Routine 09/10/23 09:00 Consult Gastroenterology Routine Procedures Performed Operation Date: 09/11/23 13:30 Actual Procedures s Endoscopic Ultrasonography Lower, with cystology - Dilcia Grady DO p EGD Biopsy Cytology - Dilcia Grady DO Ordered Studies 09/09/23 15:05 CT pancreas 3-phase wo/w con Stat 09/09/23 15:12 CT angio chest PE protocol Stat 09/11/23 13:26 US upper EUS PACS images Routine Pancreas CT 09/09/23 15:05 CT SCAN OF THE ABDOMEN COMBO PANCREAS PROTOCOL CLINICAL HISTORY: Pancreatic mass. COMPARISON STUDY: Abdominal ultrasound dated 10/04/2017. TECHNIQUE: Before and following the IV administration of 118 cc of Optiray 320, CT scan of the abdomen is performed from the lung bases to the pelvic inlet using a pancreas protocol. Images are reviewed in the axial, sagittal, and coronal planes. IV contrast was administered without complication. A dose lowering technique was utilized adhering to the principles of ALARA. The examination is modestly degraded by motion artifact. CT DOSE: 684.79 mGy.cm FINDINGS: Lung bases: The heart is normal in size and without pericardial effusion. The lung bases are clear noting dependent atelectasis. Liver: The contrast-enhanced liver is normal in size, contour, and attenuation. Fatty infiltration is seen adjacent to falciform ligament. There is no intrahepatic biliary ductal dilatation. Hepatic and portal vasculature: Hepatic arterial anatomy is conventional. The hepatic veins, the portal veins, the superior mesenteric vein, and the splenic vein are patent. The mass lesion is not clearly approximate the splenic vein. Gallbladder: Unremarkable. Spleen: Normal in size and attenuation. Pancreas: There is a heterogeneous and infiltrative low-attenuation mass lesion centered in the pancreatic head/neck. This is best seen on axial image #107 of the portal venous phase series and measures roughly 2.6 x 2.5 x 2.3 cm. The upstream pancreatic duct is significantly dilated, measuring up to 9 mm diameter. The mass lesion appears to encase the gastroduodenal artery. This closely approximates and may invade the adjacent gastroduodenal junction. A 6 cm cystic focus is suggested in the uncinate process on image #128. Adrenal glands: Unremarkable. Kidneys: The contrast enhanced kidneys are normal in size and without hydronephrosis. No renal calculi are identified on the unenhanced series. The kidneys enhance symmetrically. An 8 mm cyst is seen on the left. Abdominal vasculature: The abdominal aorta is normal in course and caliber noting mild atherosclerotic calcification. No dissection is seen. Bowel: A surgical clip is noted in the stomach. Imaged portions of the small bowel and colon show no evidence of obstruction. There is moderate colonic fecal retention. Peritoneum: There is no intraperitoneal free air or abdominal ascites. Lymphadenopathy: None. Skeletal structures: The skeletal structures are osteopenic. No lytic or blastic lesions are seen. IMPRESSION: 1. There is an approximately 2.6 cm ill-defined mass lesion arising from the pancreatic head/neck as detailed above. A pancreatic adenocarcinoma is the diagnosis of exclusion. 2. The mass does not clearly approximate the superior mesenteric vessels, but does appear to encase the gastroduodenal artery. The lesion closely approximates and may invade the adjacent gastroduodenal junction. 3. There is no evidence of intra-abdominal metastatic disease. 4. Additional findings as above. ACT 112: Positive. There are findings on this exam that require communication between the performing entity and the patient following Patient Test Result Information Act ([place] Act 112) guidelines. Electronically signed by: Dre Barrow M.D. 09/09/2023 5:00 PM Chest CTA 09/09/23 15:12 CT ANGIOGRAM OF THE CHEST CLINICAL HISTORY: Pancreatic mass. Dyspnea. Atypical chest pain. COMPARISON STUDY: Chest x-ray dated 11/02/2022. TECHNIQUE: Following the IV administration of 118 cc of Optiray 320, CT angiogram of the chest was performed from the upper abdomen to the thoracic inlet utilizing the pulmonary embolus protocol. Images are reviewed in the axial, sagittal, and coronal planes. 3-D MIPS images are created and assessed. IV contrast was administered without complication. A dose lowering technique was utilized adhering to the principles of ALARA. FINDINGS: Thyroid: Imaged portions of the thyroid gland are normal in size and attenuation. Thoracic aorta: The thoracic aorta is normal in caliber and demonstrates standard 3-vessel arch anatomy. No dissection is seen. Pulmonary vasculature: The pulmonary trunk is normal in caliber. There are no filling defects identified in main, lobar, or segmental pulmonary branches to suggest pulmonary embolus. Heart: The heart is normal in size and without pericardial effusion. There are scattered coronary artery calcifications. Lungs and pleural spaces: There is no airspace consolidation or pleural effusion. The trachea and central airways are clear. A small pleural plaque is seen in the anterior left lung on image #139. Mediastinum: There is no mediastinal lymphadenopathy. Ebony: Clear. Axillae: There is no axillary lymphadenopathy. Upper abdomen: A surgical clip is noted in the stomach. A subcentimeter flash filling hemangioma is suggested in the right lobe of liver on image #45. Fatty infiltration is seen adjacent to the falciform ligament. There is dilatation of the pancreatic duct, secondary to an obstructing mass lesion. See report of abdominal CT performed the same day for detailed intra-abdominal findings. Skeletal structures: The skeletal structures are osteopenic. No lytic or blastic bony lesions are seen. Degenerative change is noted in the shoulders and thoracic spine. IMPRESSION: 1. There is no evidence of pulmonary embolus in the main, lobar, or segmental pulmonary arteries. 2. There is no airspace consolidation or pleural effusion. 3. There is no evidence of intrathoracic metastatic disease. 4. Additional findings as above. ACT 112: Negative or not required by law. Electronically signed by: Dre Barrow M.D. 09/09/2023 5:05 PM 09/12/23 07:30 09/10/23 06:50 Hospital Course (1) Pancreatic cancer: Pancreatic Cancer - new diagnosis probable pancreatic cancer based on pancreas CT with the following findings: "There is a heterogeneous and infiltrative low- attenuation mass lesion centered in the pancreatic head/neck. This is best seen on axial image #107 of the portal venous phase series and measures roughly 2.6 x 2.5 x 2.3 cm. The upstream pancreatic duct is significantly dilated, measuring up to 9 mm diameter. The mass lesion appears to encase the gastroduodenal artery. This closely approximates and may invade the adjacent gastroduodenal junction. A 6 cm cystic focus is suggested in the uncinate process on image #128." It does not appear to radiographically affect the superior mesenteric vessels. no evidence of intra-abdominal metastatic disease - CTAchest: No evidence of PE, no airspace consolidations or pleural effusion, no evidence of intrathoracic metastatic disease. -CA 19/9 extremely elevated at 2050 - GI consulted for EGD-EUS for staging and biopsy completed 09/11 "September 11, 2023 The patient underwent endoscopic ultrasound and upper endoscopy this afternoon. She was found to have evidence of mild gastritis, biopsies were obtained to evaluate for evidence of H. pylori infection. Patient was also found to have a 30 mm pancreatic mass arising from the region of the pancreatic neck. EUS staging is T3 N0 M0 if cytology is positive for malignancy." Pathology result was available today and unfortunately confirmed pancreatic adenocarcinoma. Stomach biopsy returned and was normal tissue. follow up with Dr. Isidro -discussed with her by phone today, she plans to start chemotherapy next week Arranged general surgery follow-up tomorrow with Dr. Kearney in office, port placement to follow hopefully Saturday - After chemo --> being set up with [facility] Dr. [facility] - discussed with patient and her today 2 visits and a phone conversation with her -Pain is mostly controlled on acetaminophen with occasional opioids necessary for cancer pain, discharged with prescription for small amount of low-dose oxycodone -Discharge antibiotics: Ciprofloxacin for 5-day course as recommended by gastroenterology (2) Atypical chest pain: History of atypical chest pain Nonischemic, patient on prior patient's reports that noted some shortness of breath and a feeling of chest pain but only when she was acutely upset/angry. No chest pain outside of this. No chest pain with exertion previously. - Hx of esophagitis on egd in [place], reports this pain improved but the pain in her low ribs, LUQ has persisted - mild gastritis on EGD, biopsied, was normal tissue continue PPI -chest pain seems to have improved on this, it also may be related to the pancreas cancer - reviewed EKG: Nonspecific anterior ST abnormality is present (3) Subclinical hypothyroidism: Subclinical hyperthyroidism Reportedly mildly elevated TSH. Transiently on levothyroxine, but stopped weeks ago as did not feel any different - Repeat TSH mildly elevated / T4 normal - there is little evidence base for treating subclinical hypothyroidism provides benefit, however, electively she could choose to go back on levothyroxine as previously - continue monitor TSH in outpatient setting in case worsening, she will discuss whether to go back on thyroid replacement with her primary care doctor has appointment next week Total Time Total Time Spent Total Time Spent (In Minutes): I personally spent: 75 minutes today on clinical care activities for discharge including: reviewing chart notes and vital signs reviewing labs reviewing pathology discussion with consultants -medical oncologist, general surgery examining and counseling the patient counseling the patient's family writing orders documentation Discharge Plan Discharge Items Patient Disposition: Home - Self-Care Reason For Visit: PANCREATIC CANCER Discharge Diagnosis: pancreas mass Condition on Discharge: Good Activity: Resume your previous activity Non-emergency contact: Primary Care Provider and Oncologist Call non-emergency contact if: you have any medication questions, your symptoms worsen and you have a fever Follow-up/Referrals: Volodymyr Kearney, [Surgeon] - (tomorrow 09/13 at 09:40AM) Louie Almonte [Primary Care Provider] - 10/04/23 12:45 pm Opal Isidro MD [Physician] - 10/02/23 10:00 am (for biopsy results and treatment plan. Office will call patient if they need to see sooner.) Diet: Regular Addtl Attending Provider Instructions: Your pancreas mass was biopsied, the result will likely come back next week. Follow up with Dr. Isidro for the biopsy results and treatment plan going forward. The box sealing machine feeder recommended antibiotic following the biopsy: ciprofloxacin for 8 more doses. Seek immediate medical attention if you develop increased abdominal pain, fever, nausea/vomiting. Take miralax daily to prevent constipation and senna 1-2 tabs daily as needed (buy over the counter). You can occasionally take dulcolax if miralax and senna are not effective You have some mild gastritis (stomach inflammation) and report from [place] was that you had some esophagus inflammation as well. Take omeprazole 20 mg daily to improve the inflammation. This is available over the counter. I prescribed oxycodone as needed for pain. You can also take acetaminophen up to 3000 mg per 24h as needed for pain. These two medicines work well in combination together. Do not drive while taking sedating meds like oxycodone. Dr. Kearney (general surgery) is able to see you in the office tomorrow morning at 9:40 AM about the port. He is working on scheduling the port placement for Saturday, and it can be used the same day if necessary for chemotherapy. We talked to several surgeons and this is the soonest that it can be done. Pending Studies at Discharge: Yes Studies:: biopsy of mass, stomach biopsy for H. pylori Stand-Alone Forms: [facility], Pain - Opioid Pain Management, Smoking Cessation Medications and DC Order Prescriptions: New oxycodone 5 mg Tablet 5 mg PO Q4H PRN (Reason: pain) Qty: 14 0RF sennosides [Senokot] 8.6 mg Tablet 8.6 - 17.2 mg PO QAM PRN (Reason: constipation) Qty: 0 0RF Rx Instructions: buy over the counter polyethylene glycol 3350 [Miralax] 17 gram Powder In Packet 17 g PO DAILY Qty: 0 0RF omeprazole 20 mg capsule,delayed release(DR/EC) 20 mg PO DAILY Qty: 1 0RF Rx Instructions: buy over the counter, for gastritis/esophagitis ciprofloxacin HCl [Cipro] 500 mg tablet 500 mg PO BID Qty: 8 0RF Rx Instructions: may substitute formulary fluoroquinolone at equivalent dose Discharge Orders: Discharge Order (Routine); Ordered 09/12/23 Ordered By: Jess Prater/Other Patient Handouts: ED Hypothyroidism Admission Data Admit Date/Time: 09/09/23 18:03 Attending Provider: Jess Márquez Admit Provider: Sixto Rae Primary Care Provider: Louie Almonte Other Providers: Marino [place] Other Interventions: Discharge Summary Assessment (RN) Last Done: 09/12/23 15:12 Coding Level of Care Code 27208 INP/OBS DISCH >30 MIN Diagnoses Pancreatic cancer C25.9 Atypical chest pain R07.89 Subclinical hypothyroidism E03.8
== END 2023-09-12 16:56 | disposition home or self-care (01) | DRG 437 ==
LOC: ED 14:29 → SUATTDRO 18:03 → EDINP 18:03 → 3N 20:09
DX: Z88.1 Allergy status to other antibiotic agents; Z79.890 Hormone replacement therapy; K29.70 Gastritis, unspecified, without bleeding; R07.89 Other chest pain; E02 Subclinical iodine-deficiency hypothyroidism; C25.8 Malignant neoplasm of overlapping sites of pancreas

== ENCOUNTER 2023-09-26 13:20 | Inpatient (IN) ==
--- NOTE | 2023-09-26 13:46 | ED Triage Note ---
Date of Service September 26, 2023 Provider in Triage Author: Rachel Connell History of Present Illness This patient was briefly evaluated while in triage. An abbreviated physical exam was performed. This patient is a 67-year-old Female who presents to the ED for evaluation of hyponatremia and nausea. History of pancreatic cancer and got 1st chemo treatment 2 days ago. Having abdominal pain and nausea with dry heaves. Unable to eat much and unable to sleep. Has been drinking too much water and her sodium was 116 and she was referred to the ER. She was seen at oncology today to have her pump removed and they gave her Morphine, Zofran, and 1 L IV fluids. She also has a pump on the left arm to inject medication to help increase her WBCs. Has a port on the left side of her chest. They were unable to directly admit her from oncology, but will need to be admitted per oncology. Had CBC and CMP drawn in oncology prior to arrival in the ER. Physical Exam GENERAL: Weak and ill appearing, but non-toxic and in no acute distress. HEENT: Pupils equal. No obvious scleral icterus. HEART: Regular rate and rhythm. LUNGS: Clear to auscultation. No accessory muscle use. ABDOMEN: Soft, mildly tender to palpation diffusely over the abdomen. NEURO: Alert and oriented. No obvious neurological deficits on quick neuro exam. Initial orders for labs and / or imaging were placed and patient was placed in the waiting area until a bed is available. Please see further documentation for the full ED course. MDM / Impression Impression Impression: Acute hyponatremia, Pancreatic cancer, Nausea & vomiting
[2023-09-26] MEDS ORDERED: PROMETHAZINE 12.5 MG/50.5 ML BAG IV STA (14:19)
--- NOTE | 2023-09-26 14:26 | XRay Report ---
SINGLE VIEW CHEST CLINICAL HISTORY: Generalized abdominal pain. Nausea. FINDINGS: An AP, portable, upright chest radiograph is compared to study dated 09/21/2023. A left sub clavian central venous infusion port is unchanged in position. The heart is mildly enlarged. The pulm onary vasculature is noncongested. Mild scarring/atelectasis is noted at the lung bases. The lungs an d pleural spaces are otherwise clear. No pneumothorax is seen. The skeletal structures are osteopenic . The bony thorax is grossly intact. A surgical clip projects below the left hemidiaphragm. IMPRESSION: No active disease in the chest. ACT 112: Negative or not required by law. Electronically signed by: Dre Barrow M.D. 09/26/2023 2:24 PM
--- NOTE | 2023-09-26 14:29 | Emergency Department Note ---
Impression & Plan Acute hyponatremia, Pancreatic cancer, Nausea & vomiting ED Provider Note Provider: Jarad Joe MD DATE OF SERVICE: 09/26/2023 CHIEF COMPLAINT: Low sodium, nausea vomiting, cancer HISTORY OF PRESENT ILLNESS: Patient is a 67-year-old female past medical history of recently diagnosed with pancreatic cancer to started chemotherapy with oncology locally 2 days ago. Was hospitalized here for prior workup last several weeks. 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 Evidently she is been experiencing upper abdominal discomfort. Since chemo started on Saturday she has been experiencing significant nausea and dry heaves with only trace amount of vomiting. Has been try to keep down some water. Fatigue and pain control been difficult. He takes hydrocodone last night and allowed her to sleep some. Zofran and Compazine at home have been ineffective for nausea control. Seen by oncology earlier and had outpatient labs. Received the reports some Zofran, morphine, and a liter of normal saline. Blood work returned and referred here with a sodium of 116. reports the patient has not been confused and no seizure activities reported. No diarrhea reported. Patient reports a bit of mid upper abdominal discomfort as well as some mid discomfort in the mid back consistent with chest she has been experiencing the last several weeks. Denies lower abdominal pain. No fevers reported. No trauma reported. Has been trying to utilize a brat diet. Is using new classed infusion pump. also states the patient has been quite depressed and having some passive suicidal thoughts and considering possibly physician assisted suicide back in [place]. PAST MEDICAL HISTORY: As noted above MEDICATIONS: Reviewed home medications SOCIAL HISTORY: , speaks Mandarin PHYSICAL EXAM: GENERAL: alert and oriented in no acute distress on stretcher fatigued in appearance Head: normocephalic and atraumatic EYES: No injection, discharge or icterus. NECK: Trachea midline. ENT: Mucous membranes pink and moist. LUNGS: Airway patent. No retractions. Breath sounds clear with good air entry bilaterally. HEART: Regular rate and rhythm. No chest wall tenderness with left upper chest port. ABDOMEN: Soft and non-tender, without guarding or rebound. SKIN: Acyanotic, warm, dry, without rashes EXTREMITIES: Without swelling, tenderness or deformity NEUROLOGICAL: No focal deficits. No aphasia. No facial droop or slurred speech. Normal strength and tone in the extremities. Sensation to gross touch normal. Ambulatory. EK bpm sinus rhythm with PAC. No PVC. No acute ST segment elevation with a QTc of 344. Nonspecific T wave changes. CONTINUOUS CARDIAC MONITORING: was ordered and showed a heart rate of 60s-70s bpm in normal sinus rhythm Patient's laboratory studies and imaging reviewed. Differential includes Appendicitis, ovarian cyst, ovarian torsion, ectopic , TOA, PID, infections, diverticulitis, UTI, obstruction, mesenteric ischemia, aortic pathology, inflammatory bowel disease, renal colic, PUD, pancreatitis, biliary pathology, hernia, volvulus, constipation, as well as other pathologies. IMPRESSION/MEDICAL DECISION MAKING: Patient on chemotherapy recently initiated for pancreatic cancer. Fairly benign abdomen. Ongoing pain and nausea and vomiting issues exacerbated likely by the chemotherapy. Referred due to outpatient lab testing showing significant hyponatremia. reports patient has been trying to hydrate but significant nausea and vomiting refractory to Zofran and Compazine. Received some Zofran, liter of normal saline, and morphine from oncology prior to being referred here today. Unable to be direct admitted and referred to the ER. Rechecked electrolytes especially in light of receiving IV fluids. No significant neutropenia with stable mild anemia today. Normal platelet count. No signs of significant renal dysfunction or hepatitis on labs. CT scan the abdomen pelvis given her history of cancer with the nausea and vomiting was completed. Not having other neurological symptoms or seizure reported. Given some Phenergan here to see if this to be more efficacious for nausea control. Will require admission. wishes for the patient to have some mental health evaluation due to thoughts of possible physician assisted suicide or passive SI related to her cancer diagnosis. Did make a director case aware but I doubt she is acute threat to herself at this time given all she is going through. Patient's CT imaging with evidence of cancer but no other significant abnormality. Sodium on recheck actually little low at 115. Does have a port for central access. states that patient was up to the bathroom and now seems a little confused complaining of muscle cramps. Discussed with the hospitalist team. Will give some 3% hypertonic saline as she is starting to have some mental status change but still alert and interactive at least. No seizures noted. DIAGNOSIS: Hyponatremia, pancreatic cancer, refractory nausea and vomiting, depression DISPOSITION: Hospitalist will evaluate Patient was agreeable with this plan. Critical Care I have personally spent 32 minutes of critical care time in the direct management of this patient. This includes bedside care, interpretation of diagnostic studies, and testing, discussion with consultants, patient, and family members, and other required patient management activities. These 32 minutes is in excess of all separately billable procedures. Past Med/Surg History Medical History Port-A-Cath in place (09/19/23) Insertion of Left Subclavian Access Port with Fluoroscopy(Left) - Volodymyr Kearney DO History of epigastric pain - March 2023- described as bottom of rib cage and abdominal pain... [facility] ED eval for...heart testing done... no findings. - Later diagnosted with pancreatic cancer History of recent hospitalization [facility] Sep 09-. Chronic cough in the morning...ongoing for long time...no change to baseline. Lung nodule upper left lobe. monitors. Anemia low red blood cell count. Leukopenia Pancreatic cancer dx 09/12/23. Stomach inflammation "mild gastritits" and esophagus inflammation. Acid reflux Subclinical hypothyroidism Surgical History History of shoulder surgery right History of endoscopy History of exploratory laparotomy done in [place]. for abd pain, nothing found History of colonoscopy History of surgery left eyebrow cyst removal by dr. lester Family History Father Heart disease Social History Smoking Status: Never smoker Second Hand Exposure: No; Do You Dip or Chew Tobacco: No; Hx Alcohol Use: No Hx Substance Use: No Preferred Language: Tamazight Communication Ability: Effective Communication Ability Comment: pt , Masoud, does phone interview. Communication Tools: IPad and Language Line Care Worker Care Worker Required: Yes Beliefs That Will Affect Care: None marital status: Current Living Situation: Spouse Current Living Situation Comment: lives at home with , independent current occupational status: retired How many Children do You have: 1 Feels Safe at Home: Yes during the past year weight has: remained stable Assistive Devices: Glasses Allergies Allergies Allergy/AdvReac Type Severity Reaction Status Date / Time doxycycline Allergy Severe RED Verified 09/26/23 16:14 SPLOTCHES epinephrine Allergy Blurry Verified 09/26/23 16:14 Vision Home Meds Home Medications Medication Instructions Recorded Confirmed acetaminophen 500 mg tablet 1,000 mg PO TID 09/13/23 09/26/23 (Tylenol Extra Strength) omeprazole 20 mg capsule,delayed 20 mg PO QAM 09/13/23 09/26/23 release polyethylene glycol 3350 17 gram 17 g PO DAILY 09/13/23 09/26/23 oral powder packet (Miralax) sennosides 8.6 mg tablet (Senokot) 17.2 mg PO DAILY constipation 09/13/23 09/26/23 Irinotecan Chemo 1 dose PO .[id number] 09/26/23 09/26/23 Leucovorin Chemo 1 dose INJ .[id number] 09/26/23 09/26/23 Neulasta Inj 0 mg INJ DIRECTED 09/26/23 09/26/23 Oxaliplatin Chemo 1 dose INJ .[id number] 09/26/23 09/26/23 loratadine 10 mg tablet (Claritin) 10 mg PO DIRECTED 09/26/23 09/26/23 ondansetron HCl 8 mg tablet 8 mg PO Q8 PRN Nausea 09/26/23 09/26/23 pegfilgrastim 6 mg/0.6 mL 0 mg subcut DIRECTED 09/26/23 09/26/23 subcutaneous syringe prochlorperazine maleate 10 mg 10 mg PO Q6 PRN Nausea 09/26/23 09/26/23 tablet sulfamethoxazole 800 1 tab PO BID 09/26/23 09/26/23 mg-trimethoprim 160 mg tablet Previous Rx's Medication Instructions Recorded oxycodone 5 mg tablet 5 mg PO Q4H PRN pain #14 tabs 09/12/23 Results & Data (ED) Vital Signs Vital Signs - 24 hr 09/26/23 13:44 09/26/23 15:13 09/26/23 15:14 Temperature 36.5 C Temperature Source Temporal Artery Scan Pulse Rate 70 77 74 Pulse Rate [Right Finger] Pulse Rhythm Respiratory Rate 18 16 Respiratory Effort / Characteristics Non-Labored Respiratory Depth Normal Blood Pressure 120/67 Blood Pressure [Left Arm] Blood Pressure Mean 84 Blood Pressure Mean [Left Arm] Pulse Oximetry 97 Oxygen Delivery Method Room Air Sepsis Recent Fever Within 48 Hours No Sepsis New/Unexplained Change in Mental Status No Sepsis Action Taken by Nursing No Action Required 09/26/23 15:20 09/26/23 15:20 09/26/23 15:42 Temperature Temperature Source Pulse Rate 73 Pulse Rate [Right Finger] 70 Pulse Rhythm Respiratory Rate 21 18 Respiratory Effort / Characteristics Non-Labored Spontaneous Respiratory Depth Normal Blood Pressure 120/67 Blood Pressure [Left Arm] 117/71 Blood Pressure Mean 97 Blood Pressure Mean [Left Arm] 86 Pulse Oximetry 97 98 Oxygen Delivery Method Room Air Sepsis Recent Fever Within 48 Hours Sepsis New/Unexplained Change in Mental Status Sepsis Action Taken by Nursing 09/26/23 15:42 Temperature Temperature Source Pulse Rate 70 Pulse Rate [Right Finger] Pulse Rhythm Regular Respiratory Rate 18 Respiratory Effort / Characteristics Respiratory Depth Blood Pressure Blood Pressure [Left Arm] Blood Pressure Mean Blood Pressure Mean [Left Arm] Pulse Oximetry 98 Oxygen Delivery Method Room Air Sepsis Recent Fever Within 48 Hours Sepsis New/Unexplained Change in Mental Status Sepsis Action Taken by Nursing Laboratory Data 09/26/23 15:22 Lab Results 09/26/23 09/26/23 Range/Units 15:22 16:28 PT 10.5 (9.0-12.0) Seconds INR 1.0 (0.9-1.1) APTT 31 (21-31) Seconds PTT Ratio 1.1 Sodium 115 L* (136-145) mmol/L Potassium 3.0 L (3.5-5.1) mmol/L Chloride 87 L (98-107) mmol/L Carbon Dioxide 21 (21-32) mmol/L Anion Gap 7 (3-11) BUN 7 (6-23) mg/dl Creatinine 0.43 L (0.6-1.2) mg/dl Est Cr Clr Drug Dosing 88.7 ml/min Est GFR ( Amer) 120.3 ml/min Est GFR (Non-Af Amer) 103.8 ml/min BUN/Creatinine Ratio 16.3 (10-20) Glucose 138 H (70-99(Fasting)) mg/dl Osmolality 251 L (280-300) mOsm/kg Lactate 1.6 (0.4-2.0) mmol/L Calcium 8.1 L (8.6-10.3) mg/dl Magnesium 1.9 (1.7-2.4) mg/dl Total Bilirubin 0.9 (0.2-1.0) mg/dl AST 20 (13-39) U/L ALT 13 (7-52) U/L Alkaline Phosphatase 58 (34-104) U/L Troponin I High Sens 3.4 (0-14) pg/ml Total Protein 6.0 (6.0-8.3) gm/dl Albumin 3.7 (3.4-5.0) gm/dl Globulin 2.3 L (2.5-4.0) gm/dl Albumin/Globulin Ratio 1.6 (0.9-2) Lipase 177 H (11-82) U/L Procalcitonin < 0.05 (0-0.5) ng/ml TSH 3.393 (0.300-4.500) uIu/ml Urine Color Yellow Urine Appearance Clear (Clear) Urine pH 7.5 (4.5-7.5) Ur Specific [place] 1.023 (1.000-1.030) Urine Protein Negative (Negative) Urine Glucose (UA) Negative (Negative) Urine Ketones Negative (Negative) Urine Blood Negative (Negative) Urine Nitrite Negative (Negative) Urine Bilirubin Negative (Negative) Urine Urobilinogen Negative (Negative) Ur Leukocyte Esterase Negative (Negative) Urine Osmolality 178 L (500-800) mOsm/kg Adenovirus (PCR) Not Detected (NotDetected) B. pertussis DNA (PCR) Not Detected (NotDetected) B.parapertussis DNA PCR Not Detected (NotDetected) C. pneumoniae DNA (PCR) Not Detected (NotDetected) Coronavirus OC43 (PCR) Not Detected (NotDetected) Coronavirus HKU1 (PCR) Not Detected (NotDetected) Coronavirus 229E (PCR) Not Detected (NotDetected) SARS-CoV-2 (PCR) Not Detected (NotDetected) Coronavirus NL63 (PCR) Not Detected (NotDetected) Human Metapneumovir PCR Not Detected (NotDetected) Influenza Type A (PCR) Not Detected (NotDetected) Influenza Type B (PCR) Not Detected (NotDetected) M. pneumoniae (PCR) Not Detected (NotDetected) Parainfluenza 1 (PCR) Not Detected (NotDetected) Parainfluenza 2 (PCR) Not Detected (NotDetected) Parainfluenza 3 (PCR) Not Detected (NotDetected) Parainfluenza 4 (PCR) Not Detected (NotDetected) RSV (PCR) Not Detected (NotDetected) Entero/Rhino (PCR) Not Detected (NotDetected) Administered Medications Ondansetron HCl (Ondansetron Inj 2 Mg/Ml 2 Ml Vial) 4 mg IV Q4H PRN PRN Reason: Nausea Stop: 10/26/23 17:05 Last Admin: 09/26/23 17:14 Dose: 4 mg Documented By: JAI Discontinued Medications Promethazine HCl (Phenergan) 12.5 mg in 50.5 mls @ 202 mls/hr IV NOW STA Stop: 09/26/23 14:33 Last Infusion: 09/26/23 15:39 Dose: Infused Documented By: Admin: 09/26/23 15:19 Dose: 202 mls/hr Documented By: GARRETT Sodium Chloride (Hypertonic Saline 3%) 50 mls @ 300 mls/hr IV .Q10M ONE; Protocol Stop: 09/26/23 16:41 Last Infusion: 09/26/23 17:28 Dose: Infused Documented By: JAI Co-signed By: GARRETT Admin: 09/26/23 17:13 Dose: 300 mls/hr Documented By: JAI Co-signed By: GARRETT Potassium Chloride (K Braulio / Wtr) 10 meq in 100 mls @ 100 mls/hr IV Q1H MICHELLE Stop: 09/26/23 19:14 Last Admin: 09/26/23 19:45 Dose: 100 mls/hr Documented By: JAJA Magnesium Sulfate/Dextrose (Magnesium Sulfate / D5w) 1 gm in 100 mls @ 100 mls/hr IV NOW STA Stop: 09/26/23 18:07 Last Infusion: 09/26/23 19:26 Dose: Infused Documented By: Admin: 09/26/23 17:30 Dose: 100 mls/hr Documented By: JAI Ioversol (Optiray 320 500ml) 89 ml IV ONCE ONE Stop: 09/26/23 15:05 Last Admin: 09/26/23 15:04 Dose: 89 ml Documented By: MICAH Potassium Chloride (Potassium Chloride Crtab 20 Meq Tabcr) 40 meq PO NOW STA Stop: 09/26/23 17:05 Last Admin: 09/26/23 17:14 Dose: 40 meq Documented By: JAI Sodium Chloride (Sodium Chloride 1 Gm Tablet) 1 gm PO ONE STA Stop: 09/26/23 16:56 Last Admin: 09/26/23 17:26 Dose: 1 gm Documented By: JAI Imaging Data Radiologist's Impression: Abdomen/Pelvis CT 09/26/23 13:[address] WITH IV CONTRAST CT DOSE: 299.08 mGy.cm HISTORY: Acute abdominal pain with nausea and vomiting. Follow up study in patient with history of a 2.6 cm pancreatic mass Abdominal pain, vomiting TECHNIQUE: Multiaxial CT images of the abdomen and pelvis were performed following the IV administration of 89 cc of Optiray, A dose lowering technique was utilized adhering to the principles of ALARA. COMPARISON STUDY: CT pancreas study 09/09/2023 FINDINGS: Clear lung bases. No free air. Unremarkable spleen and adrenal glands. Mildly distended gallbladder. Unchanged ill-defined hypodense 1.5 cm focus of the left hepatic lobe on image 104 suggests a probable focal fatty infiltration. Is no significant intrahepatic biliary ductal dilation. The common bile duct measures up to 8 mm transversely which is unchanged. Patent portal and superior mesenteric veins. The splenic vein is also patent. There is a heterogeneous and infiltrative hypodense mass lesion again noted centered within the pancreatic head and neck. This lesion again measures approximately 2.6 x 2.5 x 2.3 cm. The upstream pancreatic duct is significantly dilated, measuring up to 9 mm diameter. The mass lesion appears to encase the gastroduodenal artery. This closely approximates and may invade the adjacent gastroduodenal junction. A 6 millimeter cystic focus is suggested in the uncinate process. Mild peripancreatic inflammatory changes are noted. Unchanged probable small cyst of the superior pole left kidney. No hydronephrosis. Decompressed bladder with wall thickening. Small volume of abdominopelvic ascites. Atherosclerosis of the aorta. No new lymphadenopathy identified. Biopsy clip of the gastric fundus. Enhancement with wall thickening of the distal stomach and gastroduodenal junction redemonstrated which has progressed. Mild wall thickening of the hepatic flexure. No bowel obstruction. No CT evidence of acute appendicitis. Unremarkable soft tissues. No acute fracture identified. IMPRESSION: 1. 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 2. Small volume of abdominopelvic ascites. 3. No definite evidence of metastatic disease. 4. No bowel obstruction or pneumoperitoneum. ACT 112: Negative or not required by law. The above report was generated using voice recognition software. It may contain grammatical, syntax or spelling errors. Electronically signed by: Lj Cardenas M.D. 09/26/2023 3:59 PM Chest X-Ray 09/26/23 13:47 SINGLE VIEW CHEST CLINICAL HISTORY: Generalized abdominal pain. Nausea. FINDINGS: An AP, portable, upright chest radiograph is compared to study dated 09/21/2023. A left subclavian central venous infusion port is unchanged in position. The heart is mildly enlarged. The pulmonary vasculature is noncongested. Mild scarring/atelectasis is noted at the lung bases. The lungs and pleural spaces are otherwise clear. No pneumothorax is seen. The skeletal structures are osteopenic. The bony thorax is grossly intact. A surgical clip projects below the left hemidiaphragm. IMPRESSION: No active disease in the chest. ACT 112: Negative or not required by law. Electronically signed by: Dre Barrow M.D. 09/26/2023 2:24 PM Discharge Plan Visit Data Chief Complaint: Abnormal Labs/Diagnostic Testing Stated Complaint: HIGH SODIUM, NAUSEA ED Provider: Jarad Joe Discharge Problem: Acute hyponatremia, Pancreatic cancer, Nausea & vomiting Patient Disposition: Being Evaluated by Hospitalist Discharge Instructions Interventions: ED Discharge Assessment Last Done: 09/26/23 18:26
[2023-09-26] MEDS ORDERED: OPTIRAY 320 500ml IV ONE (15:04)
--- NOTE | 2023-09-26 16:01 | CT Scan Report ---
ABDOMEN AND PELVIS CT WITH IV CONTRAST CT DOSE: 299.08 mGy.cm HISTORY: Acute abdominal pain with nausea and vomiting. Follow up study in patient with history of a 2.6 cm pancreatic mass Abdominal pain, vomiting TECHNIQUE: Multiaxial CT images of the abdomen and pelvis were performed following the IV administrat ion of 89 cc of Optiray, A dose lowering technique was utilized adhering to the principles of ALARA. COMPARISON STUDY: CT pancreas study 09/09/2023 FINDINGS: Clear lung bases. No free air. Unremarkable spleen and adrenal glands. Mildly distended gal lbladder. Unchanged ill-defined hypodense 1.5 cm focus of the left hepatic lobe on image 104 suggests a probable focal fatty infiltration. Is no significant intrahepatic biliary ductal dilation. The com mon bile duct measures up to 8 mm transversely which is unchanged. Patent portal and superior mesente karrie veins. The splenic vein is also patent. There is a heterogeneous and infiltrative hypodense mass lesion again noted centered within the pancr eatic head and neck. This lesion again measures approximately 2.6 x 2.5 x 2.3 cm. The upstream pancre atic duct is significantly dilated, measuring up to 9 mm diameter. The mass lesion appears to encase the gastroduodenal artery. This closely approximates and may invade the adjacent gastroduodenal junct ion. A 6 millimeter cystic focus is suggested in the uncinate process. Mild peripancreatic inflammato ry changes are noted. Unchanged probable small cyst of the superior pole left kidney. No hydronephrosis. Decompressed bladd er with wall thickening. Small volume of abdominopelvic ascites. Atherosclerosis of the aorta. No new lymphadenopathy identified. Biopsy clip of the gastric fundus. Enhancement with wall thickening of t he distal stomach and gastroduodenal junction redemonstrated which has progressed. Mild wall thickeni ng of the hepatic flexure. No bowel obstruction. No CT evidence of acute appendicitis. Unremarkable s oft tissues. No acute fracture identified. IMPRESSION: 1. 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 2. Small volume of abdominopelvic ascites. 3. No definite evidence of metastatic disease. 4. No bowel obstruction or pneumoperitoneum. ACT 112: Negative or not required by law. The above report was generated using voice recognition software. It may contain grammatical, syntax o r spelling errors. Electronically signed by: Lj Cardenas M.D. 09/26/2023 3:59 PM
[2023-09-26 16:04] LABS: Troponin I High Sensitivity 3.4 pg/ml (0-14)
[2023-09-26 16:06] LABS: Partial Thromboplastin Ratio 1.1; Partial Thromboplastin Time 31 Seconds (21-31); Prothrombin Time 10.5 Seconds (9.0-12.0)
[2023-09-26 16:12] LABS: Albumin Globulin Ratio 1.6 (0.9-2); Albumin Level 3.7 gm/dl (3.4-5.0); BUN Creatinine Ratio 16.3 (10-20); Bilirubin,Total 0.9 mg/dl (0.2-1.0); Calcium 8.1 mg/dl (8.6-10.3); Creatinine Clr Calc Pharmacy 88.7 ml/min; Est GFR (African American) 120.3 ml/min; Est GFR (Non-African American) 103.8 ml/min; Globulin 2.3 gm/dl (2.5-4.0); Magnesium 1.9 mg/dl (1.7-2.4); Thyroid Stimulating Hormone 3.393 uIu/ml (0.300-4.500)
[2023-09-26 16:24] LABS: Adenovirus PCR Not Detected (NotDetected); Bordetella parapertussis PCR Not Detected (NotDetected); Bordetella pertussis PCR Not Detected (NotDetected); Chlamydia pneumoniae PCR Not Detected (NotDetected); Coronavirus 229E PCR Not Detected (NotDetected); Coronavirus CoV-2 (COVID19)PCR Not Detected (NotDetected); Coronavirus HKU1 PCR Not Detected (NotDetected); Coronavirus NL63 PCR Not Detected (NotDetected); Coronavirus OC43PCR Not Detected (NotDetected); Human Metapneumovirus PCR Not Detected (NotDetected); Influenza A PCR Not Detected (NotDetected); Influenza B PCR Not Detected (NotDetected); Mycoplasma pneumoniae PCR Not Detected (NotDetected); Parainfluenza Virus 1 PCR Not Detected (NotDetected); Parainfluenza Virus 2 PCR Not Detected (NotDetected); Parainfluenza Virus 3 PCR Not Detected (NotDetected); Parainfluenza Virus 4 PCR Not Detected (NotDetected); Respiratory Syncytial VirusPCR Not Detected (NotDetected); Rhinovirus/Enterovirus PCR Not Detected (NotDetected)
[2023-09-26] MEDS ORDERED: STAT IV/IM STA (16:32)
[2023-09-26] MEDS ORDERED: SODIUM CHLORIDE 3 % 50 ML IV ONE (16:32)
[2023-09-26 16:40] LABS: Appearance Urine Clear (Clear); Bilirubin Urine Negative (Negative); Blood Urine Negative (Negative); Color Urine Yellow; Glucose Urine UA Negative (Negative); Ketones Urine Negative (Negative); Leukocyte Esterase Urine Negative (Negative); Nitrite Urine Negative (Negative); Protein Urine Negative (Negative); Specific Gravity Urine 1.023 (1.000-1.030); Urobilinogen Urine Negative (Negative); pH Urine 7.5 (4.5-7.5)
[2023-09-26] MEDS ORDERED: SODIUM CHLORIDE 1 GM TABLET PO STA (16:55)
[2023-09-26] MEDS ORDERED: POTASSIUM CHLORIDE CRTAB 20 MEQ TABCR PO STA (17:04)
[2023-09-26] MEDS ORDERED: ONDANSETRON INJ 2 MG/ML 2 ML VIAL IV PRN (17:06)
[2023-09-26] MEDS ORDERED: MAGNESIUM SULFATE / D5W 1 GM/100 ML BAG IV STA (17:08)
--- NOTE | 2023-09-26 17:31 | History & Physical Report ---
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, recently starting chemotherapy, pain, and use of Opioids for cancer related pain -Also completed a course of bactrim with last dose today -Spoke with the ED who will be giving 50 mL of hypertonic saline -We will also start 1gm NACL tabs BID with first dose stat -Explained to patient and nursing staff that the patient should not have free water at this time, can have liquids with electrolytes -We will repeat labs in approximately 3 hours, if her sodium is still downtrend ing will consider adding Tolvaptan >Will then monitor electrolytes overnight -Monitor intake/output q6h -Will follow hyponatremia workup ordered in the ED -Seizure precautions, fall precautions -SQ Lovenox for DVT PPX with active cancer -Regular diet with 1200 mL fluid restriction -AM CBC, BMP, mag, PT/INR (2) Nausea & vomiting: Plan: -Likely due to her recent chemotherapy treatment -Symptoms currently resolved after Zofran -Continue PRN zofran (3) Hypokalemia: Plan: -Potassium at 3.0 in the ED -Likely due to poor oral intake, recent vomiting -Will give 40 meq PO KCL and 10 meq IV KCL x 2 bags -Will give 1gm IV mag sulfate as mag level is currently 1.9 -Continue to monitor on tele and follow repeat labs overnight (4) Pancreatic cancer: Plan: -Continue to follow with heme/onc -Palliative and psychiatry consults have been placed (5) Leg cramping: Plan: -Likely due to hyponatremia and hypokalemia -Will continue to replete both, monitor for response Plan The patient was discussed with Dr. Saeed at the time of the admission History of Present Illness Chief Complaint: Abnrormal outpatient labs Primary Care Provider: Emilechristinagiovanna Higuera is a 67-year-old female with a past medical history of recently diagnosed pancreatic adenocarcinoma (Following with [facility]), gallstones and subclinical hypothyroidism who presented to the [facility] ED on 09/26 due to abnormal outpatient labs. Per the ED staff, she had outpatient labs drawn by her Oncologist which showed a sodium level of 116 (down from 138 on 09/21). Because of her hyponatremia she was recommended for ED evaluation. She has reportedly been dealing with significant nausea, poor oral intake, and mild abdominal pain since her first round of chemotherapy 2 days ago. Per ED staff, the patient was given 1L NSS in the Oncology clinic prior to arrival. Vitals remained stable in the ED. Repeat labs were significant for a sodium of 115 and potassium of 3.0. Chest xray was negative for acute findings. CT of the abd/pelvis w/IV con was read as 1. 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 2. Small volume of abdominopelvic ascites. 3. No definite evidence of metastatic disease. 4. No bowel obstruction or pneumoperitoneum. Prior to admission the patient was ordered 50 mL of hypertonic saline and was given a dose of 4 mg IV zofran. At the time of the exam the patient was sitting in bed in no acute distress with her sitting bedside. The patient requested that her assist with translation instead of using our translation service. The patient has been drinking "lots' of water over the past 48 hours as she was trying to stay hydrated after chemotherapy and was unable to tolerate solid food due to nausea and vomiting. Her was unable to give an exact estimate but states she was drinking multiple large bottles of water daily. She recently completed a co urse of bactrim due as she was experiencing pain at her mediport site and the ED wanted to cover a possible infection. They state that her pain has resolved. She has been using prn oxycodone for her cancer related pain. They deny recent fever or chills, chest pain, SOB, increased abd pain, dysuria, hematuria, melena, diarrhea, and recent trauma. Her main complaints at this time are BL LE cramping and mild dizziness after walking to the bathroom recently. her is concerned she may be developing depression with her recent cancer diagnosis as she has mentioned to him about going back to [place] for Physician Assisted Suicide. When asked, she states that she does not have thoughts of harming herself at this time. But she knows the prognosis for her cancer is poor and she wants to avoid suffering. I explained that we could have Psychiatry and Palliative medicine speak with her about her mental health and symptom management, as-well-as options such as Home Hospice if they are interested. They both stated they would like to be seen by both teams. We discussed code status, at this time the patient clearly states that with her new diagnosis and poor prognosis she would not want chest compressions or defibrillation in the event of cardiac arrest. However, in the event of respiratory failure she would want a trial of intubation if needed. She would want her to make medical d ecisions for her if she cannot make them herself. Please refer to Dr. Saeed's attestation for any changes to the treatment plan Allergies Allergy/AdvReac Type Severity Reaction Status Date / Time doxycycline Allergy Severe RED Verified 09/26/23 16:14 SPLOTCHES epinephrine Allergy Blurry Verified 09/26/23 16:14 Vision Home Medications Medication Instructions Recorded Confirmed Type oxycodone 5 mg tablet 5 mg PO Q4H PRN pain #14 tabs 09/12/23 09/26/23 Rx acetaminophen 500 mg tablet 1,000 mg PO TID 09/13/23 09/26/23 History (Tylenol Extra Strength) omeprazole 20 mg capsule,delayed 20 mg PO QAM 09/13/23 09/26/23 History release polyethylene glycol 3350 17 gram 17 g PO DAILY 09/13/23 09/26/23 History oral powder packet (Miralax) sennosides 8.6 mg tablet (Senokot) 17.2 mg PO DAILY constipation 09/13/23 09/26/23 History Irinotecan Chemo 1 dose PO .[id number] 09/26/23 09/26/23 History Leucovorin Chemo 1 dose INJ .[id number] 09/26/23 09/26/23 History Neulasta Inj 0 mg INJ DIRECTED 09/26/23 09/26/23 History Oxaliplatin Chemo 1 dose INJ .[id number] 09/26/23 09/26/23 History loratadine 10 mg tablet (Claritin) 10 mg PO DIRECTED 09/26/23 09/26/23 History ondansetron HCl 8 mg tablet 8 mg PO Q8 PRN Nausea 09/26/23 09/26/23 History pegfilgrastim 6 mg/0.6 mL 0 mg subcut DIRECTED 09/26/23 09/26/23 History subcutaneous syringe prochlorperazine maleate 10 mg 10 mg PO Q6 PRN Nausea 09/26/23 09/26/23 History tablet sulfamethoxazole 800 1 tab PO BID 09/26/23 09/26/23 History mg-trimethoprim 160 mg tablet Past Med/Surg History Medical History Port-A-Cath in place (09/19/23) Insertion of Left Subclavian Access Port with Fluoroscopy(Left) - [facility], History of epigastric pain - March 2023- described as bottom of rib cage and abdominal pain... [place] ED eval for...heart testing done... no findings. - Later diagnosted with pancreatic cancer History of recent hospitalization [facility] Sep 09-. Chronic cough in the morning...ongoing for long time...no change to baseline. Lung nodule upper left lobe. monitors. Anemia low red blood cell count. Leukopenia Pancreatic cancer dx 09/12/23. Stomach inflammation "mild gastritits" and esophagus inflammation. Acid reflux Subclinical hypothyroidism Surgical History History of shoulder surgery right History of endoscopy History of exploratory laparotomy done in [place]. for abd pain, nothing found History of colonoscopy History of surgery left eyebrow cyst removal by dr. lester Family History Father Heart disease Social History Smoking Status: Never smoker Second Hand Exposure: No; Do You Dip or Chew Tobacco: No; Tobacco Cessation Education Requested by Patient: No Hx Alcohol Use: No Hx Substance Use: No Preferred Language: Mandarin Estonian Communication Ability: Effective Communication Ability Comment: patient speaks broken Hebrew, uses phone to translate Communication Tools: IPad and Language Line Product Scientist Product Scientist Required: No Beliefs That Will Affect Care: None marital status: Current Living Situation: Spouse Current Living Situation Comment: lives at home with , independent current occupational status: retired How many Children do You have: 1 Other Information That Helps Us Care for You: No Feels Safe at Home: Yes Safety Concerns: Feels Safe At This Time during the past year weight has: remained stable Assistive Devices: Glasses Physical Exam Physical Exam: Physical Exam: General: In no acute distress, stated age, well-nourished, good hygiene HEENT: Normocephalic, atraumatic, no scleral icterus, pupils around round, symmetrical, and reactive to light, moist mucus membranes, trachea midline, no thyromegaly Chest/Pulm: Mediport located inthe left upper chest is without signs of irritation or infection, No respiratory distress, symmetrical chest expansion, clear breath sounds throughout Cardiac: RRR, no murmurs noted Abdomen: Negative for ascites and bruising, normoactive bowel sounds, soft, mild tenderness to palpation in the BL lower abdominal husain and left upper quadrant Musculoskeletal: Symmetrical and without signs of acute trauma, upper and lower extremities with full ROM, no atrophy, spasticity, or flaccidity Extremities: Radial, dorsalis pedis, and posterior tibial pulses are intact and symmetrical, no edema noted in the BL LE's Skin: Warm, dry, no rashes , lesions, or scars noted Neuro: Alert and oriented to person, place, month, year, no focal defects, CN II-XII tested and intact, no tremors noted Psych: No acute distress, calm and cooperative during the exam Results & Data Results & Data Vital Signs (Past 12 Hours) Vital Signs Temp Pulse Pulse Resp BP BP Pulse Ox 09/26/23 15:42 70 18 98 09/26/23 15:42 70 18 117/71 98 09/26/23 15:20 120/67 97 09/26/23 15:20 73 21 09/26/23 15:14 74 16 09/26/23 13:44 36.5 C 70 18 120/67 97 O2 Del Method 09/26/23 15:42 Room Air 09/26/23 15:42 Room Air 09/26/23 15:20 09/26/23 15:20 09/26/23 15:14 09/26/23 13:44 Room Air Laboratory Results Abnormal lab results 09/26/23 09/26/23 Range/Units 15:22 16:28 Sodium 115 L* (136-145) mmol/L Potassium 3.0 L (3.5-5.1) mmol/L Chloride 87 L (98-107) mmol/L Creatinine 0.43 L (0.6-1.2) mg/dl Glucose 138 H (70-99(Fasting)) mg/dl Osmolality 251 L (280-300) mOsm/kg Calcium 8.1 L (8.6-10.3) mg/dl Globulin 2.3 L (2.5-4.0) gm/dl Lipase 177 H (11-82) U/L Urine Osmolality 178 L (500-800) mOsm/kg Diagnostic Findings Abdomen/Pelvis CT 09/26/23 13:[address] WITH IV CONTRAST CT DOSE: 299.08 mGy.cm HISTORY: Acute abdominal pain with nausea and vomiting. Follow up study in patient with history of a 2.6 cm pancreatic mass Abdominal pain, vomiting TECHNIQUE: Multiaxial CT images of the abdomen and pelvis were performed following the IV administration of 89 cc of Optiray, A dose lowering technique was utilized adhering to the principles of ALARA. COMPARISON STUDY: CT pancreas study 09/09/2023 FINDINGS: Clear lung bases. No free air. Unremarkable spleen and adrenal glands. Mildly distended gallbladder. Unchanged ill-defined hypodense 1.5 cm focus of the left hepatic lobe on image 104 suggests a probable focal fatty infiltration. Is no significant intrahepatic biliary ductal dilation. The common bile duct measures up to 8 mm transversely which is unchanged. Patent portal and superior mesenteric veins. The splenic vein is also patent. There is a heterogeneous and infiltrative hypodense mass lesion again noted centered within the pancreatic head and neck. This lesion again measures approximately 2.6 x 2.5 x 2.3 cm. The upstream pancreatic duct is significantly dilated, measuring up to 9 mm diameter. The mass lesion appears to encase the gastroduodenal artery. This closely approximates and may invade the adjacent gastroduodenal junction. A 6 millimeter cystic focus is suggested in the uncinate process. Mild peripancreatic inflammatory changes are noted. Unchanged probable small cyst of the superior pole left kidney. No hydronephrosis. Decompressed bladder with wall thickening. Small volume of abdominopelvic ascites. Atherosclerosis of the aorta. No new lymphadenopathy identified. Biopsy clip of the gastric fundus. Enhancement with wall thickening of the distal stomach and gastroduodenal junction redemonstrated which has progressed. Mild wall thickening of the hepatic flexure. No bowel obstruction. No CT evidence of acute appendicitis. Unremarkable soft tissues. No acute fracture identified. IMPRESSION: 1. 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 2. Small volume of abdominopelvic ascites. 3. No definite evidence of metastatic disease. 4. No bowel obstruction or pneumoperitoneum. ACT 112: Negative or not required by law. The above report was generated using voice recognition software. It may contain grammatical, syntax or spelling errors. Electronically signed by: Lj Cardenas M.D. 09/26/2023 3:59 PM Chest X-Ray 09/26/23 13:47 SINGLE VIEW CHEST CLINICAL HISTORY: Generalized abdominal pain. Nausea. FINDINGS: An AP, portable, upright chest radiograph is compared to study dated 09/21/2023. A left subclavian central venous infusion port is unchanged in position. The heart is mildly enlarged. The pulmonary vasculature is noncongested. Mild scarring/atelectasis is noted at the lung bases. The lungs and pleural spaces are otherwise clear. No pneumothorax is seen. The skeletal structures are osteopenic. The bony thorax is grossly intact. A surgical clip projects below the left hemidiaphragm. IMPRESSION: No active disease in the chest. ACT 112: Negative or not required by law. Electronically signed by: Dre Barrow M.D. 09/26/2023 2:24 PM ECG Additional Comments: Will obtain at the time of the admission Code Status & VTE Plan Code Status Conditional; no CPR or defibrillation in event of cardiac arrest. Would want trial of intubation in the event of respiratory failure VTE Prophylaxis Plan VTE Prophylaxis will be ordered: Yes Supervising Physician Co-Signing Physician Notes Attending addendum: I have physically seen this patient, have supervised the WILFREDO's activities, and agree with the H&P unless as otherwise noted. Assessment and Plan: Hyponatremia- Sodium 115 Serum osmolality 251 Urine osmolality 178 Fluid restriction 1200 mL Serum chloride 1 g p.o. twice daily Hypertonic saline at 60 mL/h x 5 500 cc Follow serial renal function panel and magnesium level every 4 hours and make adjustments as needed Discussed with patient need to reduce oral intake of fluids Nausea vomiting- Likely secondary to chemotherapy and hyponatremia Zofran 4 mg IV every 6 hours as needed, initial dosing resolved symptoms Hypokalemia- Potassium 3.0 on admission Give 40 mill equivalents p.o. Klor-Con now, then 10 mEq IV x 2 bags Follow laboratories serially Remaining orders and notations as noted PG Care Time/CCT Total # of Minutes Spent Total Time Spent with Patient: Total time spent is greater than 50% in coordination of care (as documented) at patient's floor/unit and/or counseling patient: Coding [place] [address] INT INP/OBS CARE 3/75MIN Patient Type Established Medical Decision Making High Complexity Diagnoses Acute hyponatremia E87.1 Nausea & vomiting R11.2 Hypokalemia E87.6 Pancreatic cancer C25.9 Leg cramping R25.2
[2023-09-26] MEDS: POTASSIUM CHLORIDE / WTR 10 MEQ/100 ML PLCT IV SCH ×2 (19:45→22:20)
[2023-09-26 20:32] LABS: BUN Creatinine Ratio 18.4 (10-20); Calcium 8.6 mg/dl (8.6-10.3); Creatinine Clr Calc Pharmacy 77.8 ml/min; Est GFR (African American) 115.2 ml/min; Est GFR (Non-African American) 99.4 ml/min; Potassium 3.6 mmol/L (3.5-5.1)
[2023-09-26] MEDS ORDERED: SODIUM CHLORIDE 1 GM TABLET PO SCH (21:00)
[2023-09-26] MEDS ORDERED: POTASSIUM CHLORIDE 10 MEQ / 100ML WTR IV ONE (22:14)
[2023-09-26] MEDS: ENOXAPARIN INJ 40 MG/0.4 ML SYR SQ SCH (23:03)
[2023-09-26] MEDS: ACETAMINOPHEN 500 MG TAB PO SCH (23:04)
[2023-09-27 01:14] LABS: BUN Creatinine Ratio 15.4 (10-20); Calcium 8.4 mg/dl (8.6-10.3); Creatinine Clr Calc Pharmacy 73.3 ml/min; Est GFR (Non-African American) 97.5 ml/min; Potassium 3.9 mmol/L (3.5-5.1)
[2023-09-27] MEDS ORDERED: DEXTROSE 5% 500 ML IV SCH ×2 (03:00→12:45)
[2023-09-27] MEDS ORDERED: DEXTROSE 5% 250 ML IV SCH (03:15)
[2023-09-27] MEDS: DESMOPRESSIN ACETATE 2 MCG in SYRINGE 0 ML IV SCH ×4 (03:29→22:05)
[2023-09-27 05:56] LABS: Hematocrit (blood only) 30.8 % (37.0-47.0); Immature Granulocytes # (auto) 0.02 K/uL (0.01-0.20); Immature Granulocytes % (auto) 0.3 %; Lymphocytes # (auto) 0.77 K/uL (1.20-3.40); Lymphocytes % (auto) 12.2 %; Mean Corpuscular Hemoglobin 30.5 pg (25.0-34.0); Mean Corpuscular Hgb Conc 35.7 g/dL (32.0-36.0); Mean Corpuscular Volume 85.3 fL (80.0-100.0); Mean Platelet Volume 10.7 fL (9.4-12.4); Monocytes # (auto) 0.15 K/uL (0.11-0.59); Monocytes % (auto) 2.4 %; Neutrophils # (auto) 5.36 K/uL (1.40-6.50); Neutrophils % (auto) 85.1 %; Platelet Count 156 K/uL (130-400); RDW Coefficient of Variation 12.5 % (11.5-14.5); RDW Standard Deviation 38.6 fL (36.4-46.3); Red Blood Count 3.61 M/uL (4.20-5.40)
[2023-09-27 06:18] LABS: BUN Creatinine Ratio 17.3 (10-20); Calcium 8.2 mg/dl (8.6-10.3); Creatinine Clr Calc Pharmacy 73.3 ml/min; Est GFR (Non-African American) 97.5 ml/min; Potassium 3.6 mmol/L (3.5-5.1)
[2023-09-27 06:22] LABS: Prothrombin Time 10.6 Seconds (9.0-12.0)
[2023-09-27] MEDS ORDERED: DEXTROSE 5% 1,000 ML IV SCH (07:45)
[2023-09-27] MEDS: ACETAMINOPHEN 500 MG TAB PO SCH ×3 (08:22→22:05)
--- NOTE | 2023-09-27 11:02 | Electrocardiogram Report ---
Test Reason : Blood Pressure : / mmHG Vent. Rate : 077 BPM Atrial Rate : 077 BPM P-R Int : 160 ms QRS Dur : 084 ms QT Int : 304 ms P-R-T Axes : 078 060 037 degrees QTc Int : 344 ms Sinus rhythm with Premature atrial complexes Nonspecific ST and T wave abnormality Abnormal ECG When compared with ECG of 21-SEP-2023 10:12, Premature atrial complexes are now Present Nonspecific T wave abnormality now evident in Inferior leads Nonspecific T wave abnormality now evident in Lateral leads QT has shortened Confirmed by Nakul Mcknight ([id number]) on 09/27/2023 11:02:28 AM Referred By: REFERRED SELF Confirmed By:Bi Mcknight
[2023-09-27 11:08] LABS: BUN Creatinine Ratio 19.1 (10-20); Calcium 8.1 mg/dl (8.6-10.3); Creatinine Clr Calc Pharmacy 81.1 ml/min; Est GFR (African American) 116.8 ml/min; Est GFR (Non-African American) 100.8 ml/min; Potassium 3.1 mmol/L (3.5-5.1)
--- NOTE | 2023-09-27 12:41 | Hospitalist Progress Note ---
Date of Service September 27, 2023 Assessment & Plan (1) Acute hyponatremia: Plan: -Sodium was noted to be 116 on outpatient labs this am. 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 -hyponatremia is acute or at most five days, though she has some risk factors for ODS such as younger age, female, malnutrition -was initially treated with 50 mL of 3% NS for symptomatic hyponatremia in the ED (had nausea, lethargy, confusion per her ), then had order for NaCl tabs but never given, sodium rapidly increased from 115 -->128 and thereafter reversal protocol started with DDAVP 2 mcg q6h and D5W boluses. The rapid correction is likely largely autocorrection related to reversal of her temporary SIADH -goal sodium for this afternoon/ evening is 124-126 -I administered several D5W boluses (weight based dosing of 300mL each) along with DDAVP as above, following frequent Na checks however Na persisted at 128. 4 mg DDAVP given this afternoon x 1 dose, last check at 16:20 was 124. -continue serial Na checks at least q4h for tonight -at this point try to allow slow correction to max 131 over next 24h. After she is near/at 130 will be ok to let autocorrect naturally. discussed in detail with her , she refuses medical interpreters and prefers her and phone substation inspector -Regular diet with no fluid restriction at this time. -advised against overly aggressive hydration with plain water -replaced hypokalemia 3.3, 3.4 po - this will also raise Na. Mag normal. -CBC, BMP, mag, PT/INR reviewed, remarkable for mild stable anemia (2) Nausea & vomiting: Plan: -recent chemotherapy treatment and hyponatremia -Symptoms currently resolved after Zofran -Continue PRN zofran (3) Hypokalemia: Plan: -replaced mag and K -AM BMP (4) Pancreatic cancer: Plan: -Continue to follow with heme/onc -Palliative and psychiatry consults were ordered - psychiatry consult not available today, discussed with covering provider. -CBC rev, counts adequate. -AM CBC Has neulasta SQ pump L upper arm, was instructed on removal procedure - to be removed today at 5pm Ordered claritin 10 mg daily today, tomorrow per onc recommendations for pump Plan -SQ Lovenox for DVT PPX with active cancer Admission and Anticipated Discharge Date Admission Date: September 26, 2023 Subjective Seen early am, feeling better without nausea/vomiting, drinking fluids well per RN, ate breakfast Seen again in afternoon with at bedside, continues to feel better. He says she had been drinking a lot of water 5-6 16oz bottles a day. Had a lot of nausea and several episodes of emesis after chemo. Physical Exam 2 Physical Exam: PHYSICAL EXAMINATION Last 24h vital signs reviewed, see documentation in flowsheet General: comfortable appearing, no distress, sitting in bed in ED, her is on the phone on FaceTime HEENT: Normocephalic, atraumatic, pupils round and equal, sclerae anicteric, no conjunctival injection, moist mucus membranes Lungs: Normal respiratory effort. Clear to auscultation bilaterally. No RRW Heart: Regular rate and rhythm, no murmurs. No JVD Port left upper chest is accessed, no erythema Tegaderm dressing intact Abdomen: Soft, nontender, nondistended. Bowel sounds present. Extremities: Warm, dry, well-perfused. No extremity edema. Neuro: Alert and oriented x 4, face symmetric, moves 4 extremities well Psych: Normal affect and behavior Results & Data Results & Data Vital Signs (Past 12 Hours) Vital Signs Pulse Pulse Resp BP BP Pulse Ox O2 Del Method 09/27/23 07:34 73 116/71 99 Room Air 09/27/23 07:06 65 09/27/23 04:00 61 16 92/61 L 97 Room Air 09/27/23 03:32 80 22 115/68 96 Room Air 09/27/23 01:23 75 17 93/63 L 97 Room Air 09/27/23 00:42 71 Laboratory Results 09/27/23 05:32 09/27/23 10:17 PG Care Time/CCT Total # of Minutes Spent Total Time Spent with Patient: I personally spent: 75 minutes today on clinical care activities including: reviewing chart notes and vital signs reviewing labs - multiple NA checks discussion with bedside RN examining and counseling the patient counseling the patient's family writing orders documentation Coding Level of Care Code 90245 SUB INP/OBS CARE 3/50MIN (25 - SIGNIFICANT, SEPARATELY IDENTIFIABLE ) Diagnoses Acute hyponatremia E87.1 Nausea & vomiting R11.2 Hypokalemia E87.6 Pancreatic cancer C25.9
--- NOTE | 2023-09-27 12:50 | Communication Note ---
Date of Service: September 27, 2023 consult received, case reviewed, notified Dr. Márquez that would wait to determine needs following patient's interaction with palliative care to determine if full consult still needed. Although Remeron could prove helpful for PO intake, I'd advise against immediate start of any antidepressant given recent/resolving hyponatremia. Dr. Barclay to assume clinical responsibility for consult service at 1700 hrs.
[2023-09-27 13:18] LABS: BUN Creatinine Ratio 23.3 (10-20); Calcium 8.4 mg/dl (8.6-10.3); Creatinine Clr Calc Pharmacy 88.7 ml/min; Est GFR (African American) 120.3 ml/min; Est GFR (Non-African American) 103.8 ml/min; Magnesium 2.2 mg/dl (1.7-2.4); Potassium 3.3 mmol/L (3.5-5.1)
[2023-09-27] MEDS ORDERED: POTASSIUM CHLORIDE CRTAB 20 MEQ TABCR PO STA (13:47)
[2023-09-27] MEDS ORDERED: DESMOPRESSIN ACETATE 2 MCG in SODIUM CHLORIDE 0.9% 50 ML IV ONE (15:26)
[2023-09-27 17:10] LABS: BUN Creatinine Ratio 23.3 (10-20); Calcium 8.1 mg/dl (8.6-10.3); Creatinine Clr Calc Pharmacy 88.7 ml/min; Est GFR (African American) 120.3 ml/min; Est GFR (Non-African American) 103.8 ml/min; Potassium 3.4 mmol/L (3.5-5.1)
[2023-09-27] MEDS: LORATADINE 10 MG TAB PO SCH (17:39)
[2023-09-27] MEDS: ENOXAPARIN INJ 40 MG/0.4 ML SYR SQ SCH (20:18)
[2023-09-27 21:48] LABS: BUN Creatinine Ratio 29.3 (10-20); Calcium 8.2 mg/dl (8.6-10.3); Est GFR (African American) 122.2 ml/min; Est GFR (Non-African American) 105.4 ml/min; Potassium 3.4 mmol/L (3.5-5.1)
[2023-09-28 01:21] LABS: BUN Creatinine Ratio 32.4 (10-20); Calcium 8.2 mg/dl (8.6-10.3); Creatinine Clr Calc Pharmacy 112.2 ml/min; Est GFR (African American) 129.9 ml/min; Est GFR (Non-African American) 112.1 ml/min; Potassium 3.2 mmol/L (3.5-5.1)
[2023-09-28] MEDS: DESMOPRESSIN ACETATE 2 MCG in SYRINGE 0 ML IV SCH (03:25)
[2023-09-28] MEDS ORDERED: POTASSIUM CHLORIDE CRTAB 20 MEQ TABCR PO STA (04:53)
[2023-09-28 05:36] LABS: BUN Creatinine Ratio 36.7 (10-20); Calcium 8.2 mg/dl (8.6-10.3); Creatinine Clr Calc Pharmacy 127.1 ml/min; Est GFR (African American) 135.4 ml/min; Est GFR (Non-African American) 116.8 ml/min; Potassium 3.2 mmol/L (3.5-5.1)
[2023-09-28 06:24] LABS: Basophils # (auto) 0.03 K/uL (0.00-0.20); Basophils % (auto) 0.2 %; Eosinophils # (auto) 0.19 K/uL (0.00-0.50); Eosinophils % (auto) 1.3 %; Hematocrit (blood only) 29.3 % (37.0-47.0); Hemoglobin 10.7 g/dl (12.0-16.0); Immature Granulocytes % (auto) 3.5 %; Lymphocytes # (auto) 0.66 K/uL (1.20-3.40); Lymphocytes % (auto) 4.6 %; Mean Corpuscular Hemoglobin 30.7 pg (25.0-34.0); Mean Corpuscular Hgb Conc 36.5 g/dL (32.0-36.0); Mean Corpuscular Volume 84.2 fL (80.0-100.0); Mean Platelet Volume 11.1 fL (9.4-12.4); Monocytes % (auto) 0.7 %; Neutrophils # (auto) 12.84 K/uL (1.40-6.50); Neutrophils % (auto) 89.7 %; Platelet Count 128 K/uL (130-400); RDW Coefficient of Variation 12.4 % (11.5-14.5); RDW Standard Deviation 37.7 fL (36.4-46.3); Red Blood Count 3.48 M/uL (4.20-5.40); White Blood Count 14.32 K/ul (4.8-10.8)
--- NOTE | 2023-09-28 07:50 | Hospitalist Progress Note ---
Date of Service September 28, 2023 Assessment & Plan (1) Acute hyponatremia: Plan: -Sodium was noted to be 116 on outpatient labs AM of admission. 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 -hyponatremia is acute or at most five days, though she has some risk factors for ODS such as younger age, female, malnutrition -was initially treated with 50 mL of 3% NS for symptomatic hyponatremia in the ED (had nausea, lethargy, confusion per her ), then had order for NaCl tabs but never given, sodium rapidly increased from 115 -->128 and thereafter reversal protocol started with DDAVP 2 mcg q6h and D5W boluses. The rapid correction is likely largely autocorrection related to reversal of her temporary SIADH -goal sodium for 09/27 afternoon/ evening was 124-126 -I administered several D5W boluses (weight based dosing of 300mL each) along with DDAVP as above, following frequent Na checks however Na persisted at 128. 4 mg DDAVP given 09/27 x 1 dose -Na 124 yesterday evening then down to 121 last 2 checks overnight. stopped DDAVP -continue serial Na checks - ordered timed 1pm and 6 pm checks, discussed with nursing. 1pm check not done. ordered stat BMP at 4pm and still not done. -at this point try to allow correction to max 131 by this afternoon. After she is near/at 130 will be ok to let autocorrect naturally. discussed in detail with her 09/27 & 09/28, she refuses medical interpreters and prefers her and phone caterer's aide -Regular diet with no fluid restriction at this time. -advised against overly aggressive hydration with plain water -replaced hypokalemia 09/28 with 40 meq po - this will also raise Na. Mag again normal. -CBC, BMP reviewed, remarkable for mild stable anemia, mild thrombocytopenia, leukocytosis related to neulasta through 09/27 (2) Nausea & vomiting: Plan: -recent chemotherapy treatment and hyponatremia -Symptoms currently resolved after Zofran -Continue PRN zofran (3) Hypokalemia: Plan: -replaced mag and K -AM BMP (4) Pancreatic cancer: Plan: -Continue to follow with heme/onc -Palliative and psychiatry consults were ordered - psychiatry consult not available today, discussed with covering provider, pharmacotherapy not recommended right now with her sodium balance issues. I do not see any clear evidence of a mood disorder, rather, she is grappling with suffering severe pain and a severe life threatening illness. She says she wants to stop chemotherapy and go on hospice. She wants to fly to [place] to a hospital that offers assisted suicide so that she does not suffer in the end. We talked about how with chemotherapy her cancer could be resectable and best case she could have a good amount of time left. Next chemo is in 2 weeks. Her and I encouraged her to work with us on pain and symptom management meantime and talk to Dr. Isidro about this. -ordered oxycodone 10 mg q4h PRN and hydromorphone 0.5 mg IV PRN for pancreatic cancer pain, assess response -CBC rev, counts adequate. -AM CBC Had neulasta SQ pump L upper arm, discontinued per plan 09/27 Ordered claritin 10 mg daily today, per onc recommendations for pump Plan -SQ Lovenox for DVT PPX with active cancer Admission and Anticipated Discharge Date Admission Date: September 26, 2023 Subjective Today she's having a lot of upper abdominal pain which is severe and consistent with her cancer pain. 5 mg oxycodone at home was not enough to control pain. She says she wants to stop chemotherapy and go on hospice. She wants to fly to [place] to a hospital that offers assisted suicide so that she does not suffer in the end. No longer confused, no nausea, eating fair at bedside, using phone caterer's aide and speaking in [place] as well Physical Exam 2 Physical Exam: PHYSICAL EXAMINATION Last 24h vital signs reviewed, see documentation in flowsheet General: comfortable appearing, no distress, sitting in bed in ED, her is at bedside HEENT: Normocephalic, atraumatic, pupils round and equal, sclerae anicteric, no conjunctival injection, moist mucus membranes Lungs: Normal respiratory effort. Heart: def Port left upper chest is accessed, no erythema Tegaderm dressing intact Abdomen: Soft, nondistended. Extremities: Warm, dry, well-perfused. No extremity edema. Neuro: Alert and oriented x 4, face symmetric, moves 4 extremities well Psych: Normal affect and behavior Results & Data Results & Data Vital Signs (Past 12 Hours) Vital Signs Temp Pulse Pulse Pulse Resp BP BP 09/28/23 06:00 68 16 135/84 09/28/23 03:28 36.9 C 09/28/23 03:23 66 16 135/74 09/28/23 02:20 61 09/27/23 22:04 63 16 09/27/23 20:20 36.8 C 66 18 110/62 Pulse Ox O2 Del Method 09/28/23 06:00 97 Room Air 09/28/23 03:28 09/28/23 03:23 99 Room Air 09/28/23 02:20 09/27/23 22:04 96 Room Air 09/27/23 20:20 97 Room Air Laboratory Results 09/28/23 04:52 09/28/23 08:10 PG Care Time/CCT Total # of Minutes Spent Total Time Spent with Patient: Total time spent is greater than 50% in coordination of care (as documented) at patient's floor/unit and/or counseling patient: Coding Level of Care Code 66301 SUB INP/OBS CARE 3/50MIN Diagnoses Acute hyponatremia E87.1 Nausea & vomiting R11.2 Hypokalemia E87.6 Pancreatic cancer C25.9
[2023-09-28 08:46] LABS: BUN Creatinine Ratio 28.1 (10-20); Calcium 8.3 mg/dl (8.6-10.3); Creatinine Clr Calc Pharmacy 119.2 ml/min; Est GFR (African American) 132.6 ml/min; Est GFR (Non-African American) 114.4 ml/min; Potassium 3.3 mmol/L (3.5-5.1)
[2023-09-28] MEDS: LORATADINE 10 MG TAB PO SCH (10:21)
[2023-09-28] MEDS: ACETAMINOPHEN 500 MG TAB PO SCH ×3 (10:21→21:04)
[2023-09-28] MEDS ORDERED: oxyCODONE HCL IR 5 MG TAB (IMMEDIATE RELEASE) PO PRN ×2 (11:09→12:43)
[2023-09-28] MEDS ORDERED: HYDROmorphone INJ 0.5 MG/0.5 ML SYR IV PRN (11:09)
[2023-09-28] MEDS ORDERED: traZODone HCL 50 MG TAB PO PRN (20:13)
[2023-09-28 20:14] LABS: BUN Creatinine Ratio 28.2 (10-20); Calcium 8.8 mg/dl (8.6-10.3); Creatinine Clr Calc Pharmacy 97.8 ml/min; Est GFR (African American) 124.2 ml/min; Est GFR (Non-African American) 107.2 ml/min; Potassium 3.7 mmol/L (3.5-5.1)
[2023-09-28] MEDS: ENOXAPARIN INJ 40 MG/0.4 ML SYR SQ SCH (21:00)
[2023-09-29] MEDS: HEPARIN 100 UNIT/ML 5ML FLUSH FLUSH PRN (06:10)
[2023-09-29 06:45] LABS: Hematocrit (blood only) 29.6 % (37.0-47.0); Hemoglobin 11.1 g/dl (12.0-16.0); Mean Corpuscular Hemoglobin 30.8 pg (25.0-34.0); Mean Corpuscular Hgb Conc 37.5 g/dL (32.0-36.0); Mean Corpuscular Volume 82.2 fL (80.0-100.0); Platelet Count 137 K/uL (130-400); RDW Standard Deviation 36.1 fL (36.4-46.3); White Blood Count 15.44 K/ul (4.8-10.8)
[2023-09-29 07:08] LABS: BUN Creatinine Ratio 23.7 (10-20); Calcium 8.5 mg/dl (8.6-10.3); Creatinine Clr Calc Pharmacy 94.6 ml/min; Est GFR (African American) 125.3 ml/min; Est GFR (Non-African American) 108.1 ml/min; Potassium 3.4 mmol/L (3.5-5.1)
[2023-09-29 07:54] LABS: ALC (manual) 1.24 K/uL (1.2-3.4); Dohle Bodies 1+; Eosinophils # (manual) 0.15 K/uL (0-0.50); Eosinophils % (manual) 1 %; Lymphocytes # (manual) 1.24 K/uL (1.2-3.4); Lymphocytes % (manual) 8 %; Monocytes # (manual) 0.15 K/uL (0.11-0.59); Monocytes % (manual) 1 %; Neutrophils % (manual) 90 %
[2023-09-29] MEDS: ACETAMINOPHEN 500 MG TAB PO SCH ×3 (09:03→21:41)
[2023-09-29] MEDS: POTASSIUM CHLORIDE CRTAB 20 MEQ TABCR PO SCH (09:04)
[2023-09-29] MEDS ORDERED: oxyCODONE HCL IR 5 MG TAB (IMMEDIATE RELEASE) PO PRN (11:34)
[2023-09-29] MEDS ORDERED: traZODone HCL 50 MG TAB PO PRN (11:34)
[2023-09-29] MEDS ORDERED: SODIUM CHLORIDE 0.9% 1,000 ML IV SCH (11:45)
[2023-09-29] MEDS ORDERED: FIRST - Mouthwash BLM 119 ML PO PRN (14:42)
[2023-09-29 14:50] LABS: BUN Creatinine Ratio 21.3 (10-20); Calcium 8.9 mg/dl (8.6-10.3); Creatinine Clr Calc Pharmacy 76.5 ml/min; Est GFR (African American) 116.8 ml/min; Est GFR (Non-African American) 100.8 ml/min; Potassium 3.7 mmol/L (3.5-5.1)
--- NOTE | 2023-09-29 14:50 | Hospitalist Progress Note ---
Date of Service September 29, 2023 Assessment & Plan (1) Acute hyponatremia: Plan: -Sodium was noted to be 116 on outpatient labs AM of admission. 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 -hyponatremia is acute or at most five days, though she has some risk factors for ODS such as younger age, female, malnutrition -was initially treated with 50 mL of 3% NS for symptomatic hyponatremia in the ED (had nausea, lethargy, confusion per her ), then had order for NaCl tabs but never given, sodium rapidly increased from 115 -->128 and thereafter reversal protocol started with DDAVP 2 mcg q6h and D5W boluses. The rapid correction was likely largely autocorrection related to reversal of her temporary SIADH. Was relowered to 124 with DDAVP and water boluses, DDAVP stopped AM of 09/28. 119 last night might have been an erroneous lab, not consistent with other checks. 122 --> 124 --> [119] --> 124 --> 126 good trend. Will allow to slowly normalize. Once high 120s safe to let correct at natural rate. Urine sodium only 15 last night not very consistent with ongoing SIADH -has had emesis and may be volume depleted now, 300 mL IV NS ordered -replace hypokalemia po -Na check at 4pm, AM BMP -Regular diet with no fluid restriction at this time. -advised against overly aggressive hydration with plain water - encouraged broth, electrolyte drinks -ordered BOOST bid, protein supplement will improve hyponatremia - discussed with them to do 30g protein shakes ideally 2x a day at home (2) Nausea & vomiting: Plan: -recent chemotherapy treatment and hyponatremia -Symptoms currently resolved after Zofran -Continue PRN zofran (3) Hypokalemia: Plan: -replaced mag and K -AM BMP, mag (4) Pancreatic cancer: Plan: -Continue to follow with heme/onc -Palliative and psychiatry consults were ordered - psychiatry consult was not available but met with customer liaison today, discussed with covering psychiatric provider 09/28, pharmacotherapy not recommended right now with her sodium balance issues. I do not see any clear evidence of a mood disorder, rather, she is grappling with suffering severe pain and a severe life threatening illness. She says she wants to stop chemotherapy and go on hospice. She wants to fly to [place] to a hospital that offers assisted suicide so that she does not suffer in the end. We talked about how with chemotherapy her cancer could be resectable and best case she could have a good amount of time left. Next chemo is in 2 weeks. Her and I encouraged her to work with us on pain and symptom management meantime and talk to Dr. Isidro about this. -she continues to feel the same way about stopping chemo 09/29 cancer-associated pain, cancer and chemotherapy associated nausea, dysgeusia from chemotherapy at risk of mucositis -ordered oxycodone 10 mg q3h PRN and hydromorphone 0.5 mg IV PRN for pancreatic cancer pain, assess response -added scheduled compazine 10 qAC for nausea, has prn ondansetron IV -increased trazodone for sleep to 50 mg -magic mouthwash / BLM PRN -CBC rev, counts adequate. Hct stable at 29, Plt 130s, WBC elevated due to neulasta -AM CBC with diff ordered Had neulasta SQ pump L upper arm, discontinued per onc plan 09/27 Plan -updated her 09/27, 09/28, 09/29 at bedside. green tire inspector utilized 09/29 -SQ Lovenox for DVT PPX with active cancer Admission and Anticipated Discharge Date Admission Date: September 26, 2023 Subjective She had nausea and emesis last night and this morning Upper abdominal and back pain improved when given 10 mg oxycodone x 1 overnight, only lasted around 3 to 4 hours, this morning had Tylenol Physical Exam 2 Physical Exam: PHYSICAL EXAMINATION Last 24h vital signs reviewed, see documentation in flowsheet Exam unchanged 09/29: General: comfortable appearing, no distress, sitting in bed in ED, her is at bedside HEENT: Normocephalic, atraumatic, pupils round and equal, sclerae anicteric, no conjunctival injection, moist mucus membranes Lungs: Normal respiratory effort. Heart: def Port left upper chest is accessed, no erythema Tegaderm dressing intact Abdomen: Soft, nondistended. Extremities: Warm, dry, well-perfused. No extremity edema. Neuro: Alert and oriented x 4, face symmetric, moves 4 extremities well Psych: Normal affect and behavior Results & Data Results & Data Vital Signs (Past 12 Hours) Vital Signs Temp Pulse Pulse Pulse Resp BP Pulse Ox 09/29/23 12:19 36.6 C 67 16 102/54 L 97 09/29/23 08:11 36.9 C 70 16 104/52 L 95 09/29/23 07:00 67 09/29/23 03:59 36.7 C 70 16 110/66 98 O2 Del Method 09/29/23 12:19 Room Air 09/29/23 08:11 Room Air 09/29/23 07:00 09/29/23 03:59 Room Air Laboratory Results 09/29/23 05:48 PG Care Time/CCT Total # of Minutes Spent Total Time Spent with Patient: I personally spent: 50 minutes today on clinical care activities including: reviewing chart notes and vital signs reviewing serial labs discussion with RN examining and counseling the patient counseling the patient's family writing orders documentation Coding Level of Care Code 80190 SUB INP/OBS CARE 3/50MIN Diagnoses Acute hyponatremia E87.1 Nausea & vomiting R11.2 Hypokalemia E87.6 Pancreatic cancer C25.9
[2023-09-29] MEDS: PROCHLORPERAZINE MALEATE 10 MG TAB PO SCH (16:48)
[2023-09-29] MEDS: ENOXAPARIN INJ 40 MG/0.4 ML SYR SQ SCH (19:22)
[2023-09-29] MEDS: SULFAMETHOXAZOLE/TRIMETHOPRIM DS 800/160MG TAB PO SCH (21:41)
[2023-09-30] MEDS: PROCHLORPERAZINE MALEATE 10 MG TAB PO SCH ×3 (07:43→16:46)
[2023-09-30] MEDS: POTASSIUM CHLORIDE CRTAB 20 MEQ TABCR PO SCH (07:44)
[2023-09-30] MEDS: SULFAMETHOXAZOLE/TRIMETHOPRIM DS 800/160MG TAB PO SCH (07:44)
[2023-09-30 07:46] LABS: Basophils % (auto) 0.6 %; Dohle Bodies 1+; Eosinophils # (auto) 0.14 K/uL (0.00-0.50); Eosinophils % (auto) 0.8 %; Hematocrit (blood only) 31.8 % (37.0-47.0); Hemoglobin 11.3 g/dl (12.0-16.0); Immature Granulocytes # (auto) 0.14 K/uL (0.01-0.20); Immature Granulocytes % (auto) 0.8 %; Lymphocytes # (auto) 0.84 K/uL (1.20-3.40); Lymphocytes % (auto) 4.7 %; Mean Corpuscular Hemoglobin 30.1 pg (25.0-34.0); Mean Corpuscular Hgb Conc 35.5 g/dL (32.0-36.0); Mean Corpuscular Volume 84.6 fL (80.0-100.0); Mean Platelet Volume 11.1 fL (9.4-12.4); Monocytes # (auto) 0.54 K/uL (0.11-0.59); Neutrophils # (auto) 15.97 K/uL (1.40-6.50); Neutrophils % (auto) 90.1 %; Platelet Count 132 K/uL (130-400); RDW Coefficient of Variation 12.8 % (11.5-14.5); RDW Standard Deviation 39.7 fL (36.4-46.3); Red Blood Count 3.76 M/uL (4.20-5.40); White Blood Count 17.73 K/ul (4.8-10.8)
[2023-09-30 07:47] LABS: BUN Creatinine Ratio 26.7 (10-20); Calcium 8.9 mg/dl (8.6-10.3); Est GFR (African American) 118.5 ml/min; Est GFR (Non-African American) 102.2 ml/min; Potassium 3.7 mmol/L (3.5-5.1)
[2023-09-30] MEDS: ACETAMINOPHEN 500 MG TAB PO SCH ×3 (07:49→20:39)
[2023-09-30] MEDS: HEPARIN 100 UNIT/ML 5ML FLUSH FLUSH PRN (09:16)
[2023-09-30] MEDS: POLYETHYLENE (MIRALAX) 17 GM PACK PO SCH (13:05)
[2023-09-30] MEDS: SENNA 8.6 MG TAB PO SCH (13:05)
[2023-09-30] MEDS ORDERED: PANTOprazole 40 MG TAB PO STA (16:19)
--- NOTE | 2023-09-30 16:21 | Hospitalist Progress Note ---
Date of Service September 30, 2023 Assessment & Plan (1) Acute hyponatremia: Plan: Presenting Na level 115 Improved to 134 today s/p hypertonic saline on hospital day #1 (was given due to lethargy, mental status changes, etc) Na level corrected quickly to 128 she was given DDAVP and water in response to the rapid correction over last 48 hours her Na level has gradually trended towards normal hyponatremia likely multifactorial based on history recheck Urine osm and Urine Na in am recheck BMP am TSH earlier in the admission wnl (2) Nausea & vomiting: Plan: 2nd to chemotherapy given on 09/24 for pancreatic ca N/V have gradually improved make the compazine prn and see how she does add PPI since the pancreatic ca is nearly invading the gastric wall (and she takes PPI at home) recent lipase was elevated --> recheck am recheck LFTs in am to ensure stability (3) Hypokalemia: Plan: replaced resolved (4) Pancreatic cancer: Plan: Follows with Dr Isidro - [facility] s/p initial chemotherapy on 09/24/23 via [facility] Had neulasta SQ pump L upper arm, discontinued 09/27/23 initial dx of pancreatic ca was made in [place] upon return to [facility] had additional work-up and CTs/etc early 08/2023 patient has been going back/forth about her wishes at this time she has decided to proceed forward with future chemo she has numerous questions about her care and wishes to speak with Dr Isidro I spoke with Dr Isidro this evening and she will see patient in consult tomorrow plan to obtain MRI brain w/ and w/o contrast in light of recent mental status changes and her cancer (5) Acute metabolic encephalopathy: Plan: resolved 2nd to #1 (6) Gastritis: Plan: as seen on EGD in 08/2023 at [facility] cont PPI (7) Leukocytosis: Plan: mild likely 2nd to recent neulasta no signs of any infectious process at this time recent respiratory Bio[employer] negative u/a negative cxr negative CT a/p without any obvious infectious process Plan DVT proph - lovenox daily lengthy discussion with pt and pt's via German reel film inspector today total visit time at bedside was at least 50 minutes Admission and Anticipated Discharge Date Admission Date: September 26, 2023 Subjective no vomiting since AM of 09/29/23 on 09/29 was able to tolerate her meals was in better mood yesterday she reported via the German reel film inspector that she spoke with her , son, and other family members about her pancreatic ca she initially had wanted to stop all treatment and, at one point, had even me ntioned going back to [place] to seek out physician assisted suicide she now is in a better state of mind after talking with her family she now wants to proceed forward with additional chemotherapy and standard treatment due to poor sleeping, anxiety/stress, recent chemo, etc she remains very tired denies any vomiting or nausea today was able to keep all food down from breakfast/lunch Review of Systems Review of Systems: gen - no fevers or chills neuro - no headache pulm - no cough or dyspnea GI - no pain (if any it is minimal); no n/v today; +constipation - no dysuria HENT - no congestion; mouth is dry and modestly irritated Physical Exam Physical Exam: gen - NAD, thin mouth - MM are dry; lips are irritated; buccal mucosa appears irritated neck - no JVD heart - RRR, s1 s2, no murmur lungs - CTA b/l abd - soft NT ND BS+ ext - no edema, pulses 2+ b/l psych - a/o x 3 Results & Data Results & Data Vital Signs (Past 12 Hours) Vital Signs Temp Pulse Resp BP Pulse Ox O2 Del Method 09/30/23 15:25 36.7 C 70 17 95/54 L 94 Room Air 09/30/23 11:45 36.6 C 66 18 94/45 L 96 Room Air 09/30/23 07:24 36.7 C 69 18 102/61 97 Room Air Laboratory Results Laboratory Results - last 24 hr 09/30/23 05:55 WBC 17.73 H RBC 3.76 L Hgb 11.3 L Hct 31.8 L MCV 84.6 MCH 30.1 MCHC 35.5 RDW Std Deviation 39.7 RDW Coeff of Marlo 12.8 Plt Count 132 MPV 11.1 Immature Gran % (Auto) 0.8 Neut % (Auto) 90.1 Lymph % (Auto) 4.7 [place] % (Auto) 3.0 Eos % (Auto) 0.8 Baso % (Auto) 0.6 Neut # (Auto) 15.97 H Lymph # (Auto) 0.84 L [place] # (Auto) 0.54 Eos # (Auto) 0.14 Baso # (Auto) 0.10 Immature Gran # (Auto) 0.14 Dohle Bodies 1+ Sodium 134 L Potassium 3.7 Chloride 101 Carbon Dioxide 25 Anion Gap 8 BUN 12 Creatinine 0.45 L Est Cr Clr Drug Dosing 82.0 Est GFR ( Amer) 118.5 Est GFR (Non-Af Amer) 102.2 BUN/Creatinine Ratio 26.7 H Glucose 104 H Calcium 8.9 PG Care Time/CCT Total # of Minutes Spent Total Time Spent with Patient: Total time spent is greater than 50% in coordination of care (as documented) at patient's floor/unit and/or counseling patient: Coding Level of Care Code 52393 SUB INP/OBS CARE 3/50MIN Diagnoses Acute hyponatremia E87.1 Nausea & vomiting R11.2 Hypokalemia E87.6 Pancreatic cancer C25.9 Acute metabolic encephalopathy G93.41 Gastritis K29.70 Leukocytosis D72.829
[2023-09-30] MEDS: FIRST - Mouthwash BLM 119 ML PO SCH ×2 (20:28→20:40)
[2023-09-30] MEDS: ENOXAPARIN INJ 40 MG/0.4 ML SYR SQ SCH (20:39)
[2023-10-01] MEDS ORDERED: GADOBUTROL 65ML VIAL IV ONE (00:48)
--- NOTE | 2023-10-01 04:28 | Magnetic Resonance Report ---
Exam(s): MRI HEAD W/WO Contrast IV Amt: 4.5ml gadavist EXAM: MR Head Without and With Intravenous Contrast CLINICAL HISTORY: Reason for exam: pancreatic ca, eval mets. TECHNIQUE: Magnetic resonance images of the head/brain without and with intravenous contrast in multiple planes. CONTRAST: 4.5ml Gadavist of IV contrast COMPARISON: No relevant prior studies available. FINDINGS: Brain: Age-appropriate central and peripheral atrophy. Minimal degree of supratentorial periventricular and subcortical white matter hyperintensities on FLAIR and T2-weighted images. No hemorrhage. No acute infarct. No abnormal extra-axial fluid collection. No mass lesion. No abnormal parenchymal or leptomeningeal enhancement postcontrast. Ventricles: No midline shift. No ventriculomegaly. Bones/joints: Unremarkable. No acute fracture. Sinuses: Unremarkable as visualized. No acute sinusitis. Mastoid air cells: Unremarkable as visualized. No mastoid effusion. Orbits: Unremarkable as visualized. IMPRESSION: 1. No evidence for metastatic disease. 2. No acute stroke or hemorrhage. 3. Minimal nonspecific white matter changes most commonly seen with small vessel disease. Electronically signed by: Carrington Egan M.D. 10/01/23 04:28 AM
[2023-10-01] MEDS ORDERED: PROCHLORPERAZINE MALEATE 10 MG TAB PO PRN (05:37)
[2023-10-01 07:07] LABS: Albumin Level 3.9 gm/dl (3.4-5.0); Bilirubin Direct 0.1 mg/dl (0-0.2); Bilirubin,Total 0.4 mg/dl (0.2-1.0); Calcium 9.1 mg/dl (8.6-10.3); Creatinine Clr Calc Pharmacy 75.4 ml/min; Est GFR (African American) 114.5 ml/min; Est GFR (Non-African American) 98.8 ml/min; Potassium 3.9 mmol/L (3.5-5.1); Total Protein 6.5 gm/dl (6.0-8.3)
[2023-10-01 07:14] LABS: Basophils % (auto) 0.8 %; Dohle Bodies 3+; Eosinophils # (auto) 0.21 K/uL (0.00-0.50); Eosinophils % (auto) 1.7 %; Hemoglobin 11.4 g/dl (12.0-16.0); Immature Granulocytes # (auto) 0.97 K/uL (0.01-0.20); Immature Granulocytes % (auto) 7.8 %; Lymphocytes # (auto) 0.77 K/uL (1.20-3.40); Lymphocytes % (auto) 6.2 %; Mean Corpuscular Hemoglobin 30.6 pg (25.0-34.0); Mean Corpuscular Hgb Conc 35.6 g/dL (32.0-36.0); Mean Corpuscular Volume 85.8 fL (80.0-100.0); Mean Platelet Volume 10.6 fL (9.4-12.4); Monocytes # (auto) 0.93 K/uL (0.11-0.59); Monocytes % (auto) 7.4 %; Neutrophils # (auto) 9.53 K/uL (1.40-6.50); Neutrophils % (auto) 76.1 %; Platelet Count 119 K/uL (130-400); RDW Coefficient of Variation 12.9 % (11.5-14.5); RDW Standard Deviation 40.3 fL (36.4-46.3); Red Blood Count 3.73 M/uL (4.20-5.40); Toxic Vacuolation 1+; White Blood Count 12.51 K/ul (4.8-10.8)
[2023-10-01] MEDS: POTASSIUM CHLORIDE CRTAB 20 MEQ TABCR PO SCH (08:21)
[2023-10-01] MEDS: POLYETHYLENE (MIRALAX) 17 GM PACK PO SCH (08:22)
[2023-10-01] MEDS: SENNA 8.6 MG TAB PO SCH (08:22)
[2023-10-01] MEDS: ACETAMINOPHEN 500 MG TAB PO SCH ×2 (08:25→14:17)
[2023-10-01] MEDS ORDERED: PANTOprazole 40 MG TAB PO SCH (09:00)
--- NOTE | 2023-10-01 09:51 | Palliative Care Consultation ---
Date of Consultation October 01, 2023 Assessment & Plan (1) Cancer related pain: Current regimen with tylenol and rare dilaudid is meeting her needs and she does not want to change (2) Weakness generalized: nutrition reviewed: she was researching online and found she needs to drink a lo t of water after chemo, she admits she probably took this too far and dropped her sodium. she had severe n/v after chemo, would like more meds to relieve this (3) Palliative care by specialist: Met with pt/family. Provided overview of Palliative Medicine, a subspecialty that provides specialized medical care for people living with a serious illness by offering a focus on quality of life. Palliative Medicine is often conflated with hospice: I advised patient/family that Palliative and hospice can be partners but we are not the same. It is important to understand the difference so that we may be informed, and not afraid. Palliative Medicine works to improve QOL through reduction of symptom burden/more control over their illness, for both the patient and family. Palliative medicine clinicians are board certified, specially-trained and another member of the patient's medical care team. We often provide an extra layer of support because our care is based on the needs of the patient, not the prognosis; as such, it's appropriate at any age/advancing stage of a serious illness and can be provided along with curative treatment. Palliative Medicine clinicians are also trained in advanced communication methodologies, to facilitate complex discussions about advanced illness planning, which are needed to help assure that the treatment choices match the patient's goals, aka delivering Goal Concordant care. Finally, we discussed that hospice is a visiting nurse service that focuses on care delivered at the very end of life for patients with terminal illness, with life expectancy less than 6 month. (4) Advanced care planning/counseling discussion: ACP with pt and face to face x 60 min with hospital video pearl glue drier. She has been speaking with family and wants to "try and fight the cancer." SHe notes her prior wishes to "go back to [place] for assisted suicide were said in moments of despair." She wants to continue chemo and see how she does, would like more symptom mgt jade for n/v and anxiety which she admits keeps her up at night. She feels she has good information from oncology about what to expect. She is aware the cancer is not curable but notes [place] culture focuses on "staying positive" and her family hopes for a cure/remission. She and recently downsized into a one level double wide trailer home. 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 (5) Nausea & vomiting: Vomiting type: unspecified Qualified Code(s): R11.2 - Nausea with vomiting, unspecified (6) Acute metabolic encephalopathy: (7) Pancreatic cancer: Plan * Low dose ativan 0.5 mg po q8h prn anxiety, insomnia, nausea. order sent to her OP pharmacy [facility]. * RTC with me OP Pall med in 3-4 weeks * Nutrition d/w pt and in detail; she does not like anything cold or even sl sweet. suggested unflavored pedialyte post chemo and dilute citrus gatorades with water. also suggested plain danish yogurt with protein additive inlcuding PB2 and protein powder she can blend in, add fruit of choice. * She would like to resume her diet of home cooked [place] food. advised to gradually advance diet as tolerated. Thank you for allowing us to participate in the ongoing care of this patient. Please don't hesitate to call or page with any additional concerns. Dr. Ofe Miramontes DNP Director, Palliative Care History of Present Illness Reason for Consultation: Further [facility] discussions with pancreatic cancer Requesting Physician: Carlito Bettencourt Attending Physician: Shakir Mock MD History of Present Illness 67yo female with pancreatic cancer, seen bedside with her and hospital [facility] [place] pearl glue drier Anupama through iPad complex psychosocial dynamics recent hospitalist note states: "Palliative and psychiatry consults were ordered - psychiatry consult not available today, discussed with covering provider, pharmacotherapy not recommended right now with her sodium balance issues. I do not see any clear evidence of a mood disorder, rather, she is grappling with suffering severe pain and a severe life threatening illness. She says she wants to stop chemotherapy and go on hospice. She wants to fly to [place] to a hospital that offers assisted suicide so that she does not suffer in the end. We talked about how with chemotherapy her cancer could be resectable and best case she could have a good amount of time left. Next chemo is in 2 weeks. Her and I encouraged her to work with us on pain and symptom management meantime and talk to Dr. Isidro about this." presented for admission with NA 115 now it is improved to 134 Chemo #2 given 09/24/23 with resulting n/v leading to abnormalities and admission her pancreatic ca is nearly invading the gastric wall Chart review states the following: "initial dx of pancreatic ca was made in [place] upon return to [facility] had additional work-up and CTs/etc early 08/2023 patient has been going back/forth about her wishes at this time she has decided to proceed forward with future chemo no vomiting since AM of 09/29/23 on 09/29 was able to tolerate her meals was in better mood yesterday she reported via the [place] podiatric technician that she spoke with her , son, and other family members about her pancreatic ca she initially had wanted to stop all treatment and, at one point, had even mentioned going back to [place] to seek out physician assisted suicide she now is in a better state of mind after talking with her family she now wants to proceed forward with additional chemotherapy and standard treatment due to poor sleeping, anxiety/stress, recent chemo, etc she remains very tired denies any vomiting or nausea today was able to keep all food down from breakfast/lunch" Pancreas CT with the following findings: "There is a heterogeneous and infiltrative low-attenuation mass lesion centered in the pancreatic head/neck. This is best seen on axial image #107 of the portal venous phase series and measures roughly 2.6 x 2.5 x 2.3 cm. The upstream pancreatic duct is significantly dilated, measuring up to 9 mm diameter. The mass lesion appears to encase the gastroduodenal artery. This closely approximates and may invade the adjacent gastroduodenal junction. A 6 cm cystic focus is suggested in the uncinate process on image #128." It does not appear to radiographically affect the superior mesenteric vessels. no evidence of intra-abdominal metastatic disease - CTAchest: No evidence of PE, no airspace consolidations or pleural effusion, no evidence of intrathoracic metastatic disease. Allergies Allergy/AdvReac Type Severity Reaction Status Date / Time doxycycline Allergy Severe RED Verified 09/26/23 16:14 SPLOTCHES epinephrine Allergy Blurry Verified 09/26/23 16:14 Vision Home Medications Medication Instructions Recorded Confirmed Type oxycodone 5 mg tablet 5 mg PO Q4H PRN pain #14 tabs 09/12/23 09/26/23 Rx polyethylene glycol 3350 17 gram 17 g PO DAILY 09/13/23 09/26/23 History oral powder packet (Miralax) sennosides 8.6 mg tablet (Senokot) 17.2 mg PO DAILY constipation 09/13/23 09/26/23 History Irinotecan Chemo 1 dose PO .[id number] 09/26/23 09/26/23 History Leucovorin Chemo 1 dose INJ .[id number] 09/26/23 09/26/23 History Neulasta Inj 0 mg INJ DIRECTED 09/26/23 09/26/23 History Oxaliplatin Chemo 1 dose INJ .[id number] 09/26/23 09/26/23 History loratadine 10 mg tablet (Claritin) 10 mg PO DIRECTED 09/26/23 09/26/23 History ondansetron HCl 8 mg tablet 8 mg PO Q8 PRN Nausea 09/26/23 09/26/23 History pegfilgrastim 6 mg/0.6 mL 0 mg subcut DIRECTED 09/26/23 09/26/23 History subcutaneous syringe prochlorperazine maleate 10 mg 10 mg PO Q6 PRN Nausea 09/26/23 09/26/23 History tablet acetaminophen 500 mg tablet 1,000 mg (2 x 500 mg) PO TID PRN 10/01/23 09/26/23 Rx (Tylenol Extra Strength) pain #1 tab omeprazole 40 mg capsule,delayed 40 mg PO QAM #30 caps 10/01/23 Rx release promethazine 12.5 mg tablet 12.5 mg PO Q6H PRN nausea or 10/01/23 Rx vomiting #30 tabs lorazepam 0.5 mg tablet (Ativan) 0.5 mg PO Q8H PRN anxiety, 10/02/23 Rx insomnia, nausea 1 month #90 tabs Patient History Medical History (Updated 10/02/23 @ 18:03 by Ofe Miramontes DNP) Port-A-Cath in place (09/19/23) Insertion of Left Subclavian Access Port with Fluoroscopy(Left) - Volodymyr Kearney, History of epigastric pain - March 2023- described as bottom of rib cage and abdominal pain... [place] ED eval for...heart testing done... no findings. - Later diagnosted with pancreatic cancer History of recent hospitalization [facility] Sep 09-. Chronic cough in the morning...ongoing for long time...no change to baseline. Lung nodule upper left lobe. monitors. Anemia low red blood cell count. Leukopenia Pancreatic cancer dx 09/12/23. Stomach inflammation "mild gastritits" and esophagus inflammation. Acid reflux Subclinical hypothyroidism Surgical History History of shoulder surgery right History of endoscopy History of exploratory laparotomy done in [place]. for abd pain, nothing found History of colonoscopy History of surgery left eyebrow cyst removal by dr. lester Family History Father Heart disease Social History Smoking Status: Never smoker Second Hand Exposure: No; Do You Dip or Chew Tobacco: No; Hx Alcohol Use: No Hx Substance Use: No Preferred Language: Mandarin [place] Communication Ability: Effective Communication Ability Comment: patient speaks broken Occitan, uses phone to translate Communication Tools: IPad and Language Line Network Development Coordinator Network Development Coordinator Required: No Beliefs That Will Affect Care: None marital status: Current Living Situation: Spouse Current Living Situation Comment: lives at home with , independent current occupational status: retired How many Children do You have: 1 Feels Safe at Home: Yes during the past year weight has: remained stable Assistive Devices: Glasses Review of Systems Constitutional: + fatigue, + weakness, + anorexia and + weight loss Eyes: + dry eyes Ear, Nose, Mouth, Throat: + dry mouth Gastrointestinal: + abdominal pain, + heartburn, + nausea and + vomiting Musculoskeletal: + muscle weakness Integumentary: + dry skin Neurologic: + generalized weakness Psychiatric: + depression and + anxiety Endocrine: + fatigue and + cold intolerance Physical Exam Constitutional: + ill appearing, + thin, + language collazo ier, + frail appearing, well groomed and cooperative Eyes: PERRL, conjunctivae normal, anicteric sclerae ENMT: Mouth: + dry oral mucous membranes Neck: trachea midline, no thyromegaly Respiratory: normal respiratory effort, lungs clear to auscultation Gastrointestinal (Abdomen): Mild TTP mid epigastric and wrapping around the sides towards the back, denies pain shooting through her to her back Musculoskeletal: generalized weakness Skin: pale, warm Neurologic: AAOx3 requires hospital pearl glue drier Results & Data Vital Signs (Past 12 Hours) Vital Signs Temp Pulse Pulse Resp BP Pulse Ox O2 Del Method 10/01/23 07:56 36.9 C 73 17 104/59 L 98 Room Air 10/01/23 07:50 74 10/01/23 03:15 36.9 C 75 18 106/66 96 Room Air 09/30/23 22:10 36.5 C 67 18 105/65 96 Room Air Laboratory Results data reviewed see HPI Diagnostic Findings data reviewed, see HPI PG Care Time/CCT Total # of Minutes Spent Total Time Spent: 140 Total Time Spent with Patient: Total time spent is greater than 50% in coordination of care (as documented) at patient's floor/unit and/or counseling patient: I spent 140 minutes overall addressing this case: 25 min in medical data review/discussion with referring provider(s) and/or preparation for the visit 25 min in direct interaction with the patient/exam 60 min in Advance Care Planning/Goals of Care discussions as detailed above in note (must be >16min) 15 min in subsequent review and synthesis of assessment and plan 15 min communicating with other providers regarding the patient's case: Advanced Care Planning 58578 Advanced Care Planning 30 Min 91391 Advanced Care Planning Additional 30 [place] [address] IN/OBS CONSULT LVL 5,80M Patient Type New History Comprehensive Exam Comprehensive Medical Decision Making High Complexity Diagnoses Cancer related pain G89.3 Weakness generalized R53.1 Palliative care by specialist Z51.5 Advanced care planning/counseling discussion Z71.89 Nausea and vomiting, unspecified vomiting type R11.2 Vomiting type: unspecified Acute metabolic encephalopathy G93.41 Pancreatic cancer C25.9 Additional Codes Advanced Care Planning - 18734 Advanced Care Planning 30 Min: 25334 Advanced Care Planning 30 Min ([id number]) Advanced Care Planning - 71797 Advanced Care Planning Additional 30 Min: 51839 Advanced Care Planning Additional 30 Min ([id number])
[2023-10-01] MEDS: FIRST - Mouthwash BLM 119 ML PO SCH ×2 (10:18→13:39)
--- NOTE | 2023-10-01 11:55 | Oncology Consultation ---
Date of Consultation October 01, 2023 Assessment & Plan (1) Pancreatic cancer: (2) Nausea & vomiting: Plan Doing a lot better from a symptom management standpoint. Labs also look better. Discussed overall care with patient and her . Explained to her that I would recommend slightly dose reducing chemotherapy treatment given side effects following cycle 1 of treatment. Recommend continued use of antinausea medications. Also recommend continue with oxycodone for pain. She will follow- up with me upon discharge and plan to restart chemotherapy treatment on 10/08/2023. History of Present Illness Reason for Consultation: Pancreatic cancer Attending Physician: Shakir Mock MD History of Present Illness Pleasant 67-year-old female recently diagnosed with adenocarcinoma of the head/neck of the pancreas for which she is s/p 1 cycle of neoadjuvant chemotherapy with FOLFIRINOX administered on 09/24/2023. Admitted to [facility] after presenting with nausea, abdominal pain and labs showed severe hyponatremia. Doing a lot better today. States that she is eating better. Denies nausea, vomiting or abdominal pain. Labs show resolution of hyponatremia. Today's visit was to go over overall plan with patient and her Allergies Allergy/AdvReac Type Severity Reaction Status Date / Time doxycycline Allergy Severe RED Verified 09/26/23 16:14 SPLOTCHES epinephrine Allergy Blurry Verified 09/26/23 16:14 Vision Home Medications Medication Instructions Recorded Confirmed Type oxycodone 5 mg tablet 5 mg PO Q4H PRN pain #14 tabs 09/12/23 09/26/23 Rx polyethylene glycol 3350 17 gram 17 g PO DAILY 09/13/23 09/26/23 History oral powder packet (Miralax) sennosides 8.6 mg tablet (Senokot) 17.2 mg PO DAILY constipation 09/13/23 09/26/23 History Irinotecan Chemo 1 dose PO .[id number] 09/26/23 09/26/23 History Leucovorin Chemo 1 dose INJ .[id number] 09/26/23 09/26/23 History Neulasta Inj 0 mg INJ DIRECTED 09/26/23 09/26/23 History Oxaliplatin Chemo 1 dose INJ .[id number] 09/26/23 09/26/23 History loratadine 10 mg tablet (Claritin) 10 mg PO DIRECTED 09/26/23 09/26/23 History ondansetron HCl 8 mg tablet 8 mg PO Q8 PRN Nausea 09/26/23 09/26/23 History pegfilgrastim 6 mg/0.6 mL 0 mg subcut DIRECTED 09/26/23 09/26/23 History subcutaneous syringe prochlorperazine maleate 10 mg 10 mg PO Q6 PRN Nausea 09/26/23 09/26/23 History tablet acetaminophen 500 mg tablet 1,000 mg (2 x 500 mg) PO TID PRN 10/01/23 09/26/23 Rx (Tylenol Extra Strength) pain #1 tab omeprazole 40 mg capsule,delayed 40 mg PO QAM #30 caps 10/01/23 Rx release promethazine 12.5 mg tablet 12.5 mg PO Q6H PRN nausea or 10/01/23 Rx vomiting #30 tabs Patient History Medical History (Updated 10/01/23 @ 09:59 by Ofe Miramontes, AZIZA) Port-A-Cath in place (09/19/23) Insertion of Left Subclavian Access Port with Fluoroscopy(Left) - Volodymyr Kearney, DO History of epigastric pain - March 2023- described as bottom of rib cage and abdominal pain... [place] ED eval for...heart testing done... no findings. - Later diagnosted with pancreatic cancer History of recent hospitalization [facility] Sep 09-. Chronic cough in the morning...ongoing for long time...no change to baseline. Lung nodule upper left lobe. monitors. Anemia low red blood cell count. Leukopenia Pancreatic cancer dx 09/12/23. Stomach inflammation "mild gastritits" and esophagus inflammation. Acid reflux Subclinical hypothyroidism Surgical History History of shoulder surgery right History of endoscopy History of exploratory laparotomy done in [place]. for abd pain, nothing found History of colonoscopy History of surgery left eyebrow cyst removal by dr. lester Family History Father Heart disease Social History Smoking Status: Never smoker Second Hand Exposure: No; Do You Dip or Chew Tobacco: No; Hx Alcohol Use: No Hx Substance Use: No Preferred Language: Mandarin Citizen [place] Communication Ability: Effective Communication Ability Comment: patient speaks broken [place]an, uses phone to translate Communication Tools: IPad and Language Line Food And Beverage Coordinator Food And Beverage Coordinator Required: No Beliefs That Will Affect Care: None marital status: Current Living Situation: Spouse Current Living Situation Comment: lives at home with , independent current occupational status: retired How many Children do You have: 1 Feels Safe at Home: Yes during the past year weight has: remained stable Assistive Devices: Glasses Results & Data Vital Signs (Past 12 Hours) Vital Signs Temp Pulse Pulse Resp BP Pulse Ox O2 Del Method 10/01/23 11:31 36.5 C 79 16 95/63 L 97 Room Air 10/01/23 07:56 36.9 C 73 17 104/59 L 98 Room Air 10/01/23 07:50 74 10/01/23 03:15 36.9 C 75 18 106/66 96 Room Air (2) Nausea & vomiting Vomiting type: unspecified Qualified Code(s): R11.2 - Nausea with vomiting, unspecified
--- NOTE | 2023-10-01 14:42 | Discharge Summary ---
Date of Service October 01, 2023 Admission HPI Per Admitting Provider Davida is a 67-year-old female with a past medical history of recently diagnosed pancreatic adenocarcinoma (Following with Cancer [facility]), gallstones and subclinical hypothyroidism who presented to the [facility] ED on 09/26 due to abnormal outpatient labs. Per the ED staff, she had outpatient labs drawn by her Oncologist which showed a sodium level of 116 (down from 138 on 09/21). Because of her hyponatremia she was recommended for ED evaluation. She has reportedly been dealing with significant nausea, poor oral intake, and mild abdominal pain since her first round of chemotherapy 2 days ago. Per ED staff, the patient was given 1L NSS in the Oncology clinic prior to arrival. Vitals remained stable in the ED. Repeat labs were significant for a sodium of 115 and potassium of 3.0. Chest xray was negative for acute findings. CT of the abd/pelvis w/IV con was read as 1. 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 2. Small volume of abdominopelvic ascites. 3. No definite evidence of metastatic disease. 4. No bowel obstruction or pneumoperitoneum. Prior to admission the patient was ordered 50 mL of hypertonic saline and was given a dose of 4 mg IV zofran. At the time of the exam the patient was sitting in bed in no acute distress with her sitting bedside. The patient requested that her assist with translation instead of using our translation service. The patient has been drinking "lots' of water over the past 48 hours as she was trying to stay hydrated after chemotherapy and was unable to tolerate solid food due to nausea and vomiting. Her was unable to give an exact estimate but states she was drinking multiple large bottles of water daily. She recently completed a course of bactrim due as she was experiencing pain at her mediport site and the ED wanted to cover a possible infection. They state that her pain has resolved. She has been using prn oxycodone for her cancer related pain. They deny recent fever or chills, chest pain, SOB, increased abd pain, dysuria, hematuria, melena, diarrhea, and recent trauma. Her main complaints at this time are BL LE cramping and mild dizziness after walking to the bathroom recently. her is concerned she may be developing depression with her recent cancer diagnosis as she has mentioned to him about going back to [place] for Physician Assisted Suicide. When asked, she states that she does not have thoughts of harming herself at this time. But she knows the prognosis for her cancer is poor and she wants to avoid suffering. I explained that we could have Psychiatry and Pal liative medicine speak with her about her mental health and symptom management, as-well-as options such as Home Hospice if they are interested. They both stated they would like to be seen by both teams. We discussed code status, at this time the patient clearly states that with her new diagnosis and poor prognosis she would not want chest compressions or defibrillation in the event of cardiac arre st. However, in the event of respiratory failure she would want a trial of intubation if needed. She would want her to make medical decisions for her if she cannot make them herself. Please refer to Dr. Saeed's attestation for any changes to the treatment plan Discharge Exam gen - NAD, thin mouth - MM are dry; lips are irritated; buccal mucosa appears irritated neck - no JVD heart - RRR, s1 s2, no murmur lungs - CTA b/l abd - soft NT ND BS+ ext - no edema, pulses 2+ b/l psych - a/o x 3 Discharge Data Allergies Allergy/AdvReac Type Severity Reaction Status Date / Time doxycycline Allergy Severe RED Verified 09/26/23 16:14 SPLOTCHES epinephrine Allergy Blurry Verified 09/26/23 16:14 Vision Consultations 09/26/23 16:24 ED Decision to Admit Stat 09/26/23 17:13 Consult Palliative Care Routine 09/28/23 09:14 Consult Behavioral Health Liaison Routine 09/30/23 15:23 Consult Oncology Routine Ordered Studies 09/26/23 13:47 CT abd pelvis IV con only Stat 10/01/23 00:11 MR brain wo/w con Routine Hospital Course (1) Acute hyponatremia: Presenting Na level 115 Improved to 134 today s/p hypertonic saline on hospital day #1 (was given due to lethargy, mental status changes, etc) Na level corrected quickly to 128 she was given DDAVP and water in response to the rapid correction over last 48 hours her Na level has gradually trended towards normal hyponatremia likely multifactorial based on history recheck Urine osm and Urine Na in am recheck BMP am TSH earlier in the admission wnl (2) Nausea & vomitinnd to chemotherapy given on 09/24 for pancreatic ca N/V have gradually improved make the compazine prn and see how she does add PPI since the pancreatic ca is nearly invading the gastric wall (and she takes PPI at home) recent lipase was elevated --> recheck am recheck LFTs in am to ensure stability (3) Hypokalemia: replaced resolved (4) Pancreatic cancer: Follows with Dr Isidro - CCP s/p initial chemotherapy on 09/24/23 via [facility] Had neulasta SQ pump L upper arm, discontinued 09/27/23 initial dx of pancreatic ca was made in [place] upon return to [facility] had additional work-up and CTs/etc early 08/2023 patient has been going back/forth about her wishes at this time she has decided to proceed forward with future chemo she has numerous questions about her care and wishes to speak with Dr Isidro I spoke with Dr Isidro this evening and she will see patient in consult tomorrow plan to obtain MRI brain w/ and w/o contrast in light of recent mental status changes and her cancer (5) Acute metabolic encephalopathy: resolved 2nd to #1 (6) Gastritis: as seen on EGD in 08/2023 at [facility] cont PPI (7) Leukocytosis: mild likely 2nd to recent neulasta no signs of any infectious process at this time recent respiratory BioFire negative u/a negative cxr negative CT a/p without any obvious infectious process Plan DVT proph - lovenox daily lengthy discussion with pt and pt's via [place] physician assistant psychiatry today total visit time at bedside was at least 50 minutes Discharge Plan Discharge Items Patient Disposition: Home - Self-Care Reason For Visit: ACUTE HYPONATREMIA Discharge Diagnosis: 1. hyponatremia (low sodium level) - resolved; discharge sodium level 135 (normal 135-145) 2. confusion / lethargy - due to #1 - resolved 3. pancreatic cancer with recent chemotherapy 4. elevated lipase level - due to mild pancreatitis? due to dehydration? either way - resolved 5. gastritis as seen on recent EGD 6. constipation - resolved Activity: As commented below Activity Comment: gradually increase activities over the next few days as tolerated Exercise/Sports: Wait until after follow-up appointment Non-emergency contact: Primary Care Provider and Oncologist Call non-emergency contact if: you have any medication questions, your symptoms worsen, your pain is not controlled, your pain is worsening, your pain is unusual for you, your pain is concerning for you and you have a fever Follow-up/Referrals: Louie Almonte [Primary Care Provider] - Opal Isidro MD [Physician] - (see Dr Isidro as scheduled within 1 week) Diet: Low Fat Addtl Attending Provider Instructions: Mrs Lamas, You were hospitalized due to nausea and vomiting along with severe hyponatremia (low sodium level). The nausea and vomiting were likely due to side effects from your chemotherapy. I cannot rule out that you had a very mild case of pancreatitis which can also cause abdominal pain, nausea, and vomiting. The lipase level (a pancreas test) was mildly elevated which could have been from severe dehydration OR acute pancreatitis. Either way your abdominal symptoms have resolved and you are tolerating a diet. Furthermore the lipase level normalized. Your sodium level normalized with multiple treatments during the stay. You were seen by Dr Isidro from oncology as well as palliative care. The plan at this time is to continue to follow with Dr Isidro for chemotherapy in the near-future. Recommendations - 1. please increase your omeprazole from 20mg daily to 40mg daily. Start this tomorrow AM, 10/02/23. [address] prochlorperazine on hold for now. In its place you can try promethazine for nausea and/or vomiting. * promethazine 12.5mg every 6 hours as needed for nausea/vomiting * please note that both of these drugs have very similar spelling 3. if you have ongoing nausea/vomiting despite promethazine you can continue the ondansetron that was previously prescribed. 4. please follow a low fat diet for 1 week then resume your typical diet; see handout. 5. fluids each day - shoot for at least 2000ml per 24-hour period. 6. see Dr Isidro within 1 week. Return to [facility] if - * you have fever over 100 degrees * you have nausea and/or vomiting that is not responding to your nausea medication * you have severe abdominal pain * you are unable to eat or drink * you have shortness of breath or chest pain * any other concerns It was our pleasure to care for you! Pending Studies at Discharge: No Stand-Alone Forms: [facility], Smoking Cessation Medications and DC Order Prescriptions: New promethazine 12.5 mg tablet 12.5 mg PO Q6H PRN (Reason: nausea or vomiting) Qty: 30 0RF Continued oxycodone 5 mg Tablet 5 mg PO Q4H PRN (Reason: pain) Qty: 14 0RF sennosides [Senokot] 8.6 mg tablet 17.2 mg PO DAILY Rx Instructions: buy over the counter polyethylene glycol 3350 [Miralax] 17 gram powder in packet 17 g PO DAILY Patient Comments: afternoon ondansetron HCl 8 mg tablet 8 mg PO Q8 PRN (Reason: Nausea) loratadine [Claritin] 10 mg Tablet 10 mg PO DIRECTED Neulasta Inj 0 mg INJ DIRECTED Rx Instructions: End tomarrow at 1700. pegfilgrastim 6 mg/0.6 mL Syringe 0 mg SUBCUT DIRECTED Irinotecan Chemo 1 dose PO .[id number] Leucovorin Chemo 1 dose INJ .[id number] Oxaliplatin Chemo 1 dose INJ .[id number] Changed omeprazole 40 mg capsule,delayed release(DR/EC) 40 mg PO QAM Qty: 30 5RF acetaminophen [Tylenol Extra Strength] 500 mg Tablet 1,000 mg PO TID PRN (Reason: pain) Qty: 1 0RF Held prochlorperazine maleate 10 mg tablet 10 mg PO Q6 PRN (Reason: Nausea) Hold Instructions: hold for now since phenergan (promethazine) is being prescribed in its place Discontinued sulfamethoxazole-trimethoprim 800-160 mg tablet 1 tab PO BID Discharge Orders: Discharge Order (Routine); Ordered 10/01/23 Ordered By: Shakir Prater/Other Patient Handouts: ED Diet, Low Fat Admission Data Admit Date/Time: 09/26/23 16:36 Attending Provider: Shakir Mock Admit Provider: Yaniv Saeed Primary Care Provider: Louie Almonte Other Providers: Yaniv Saeed; Ofe Miramontes Aderonke Coding Diagnoses Acute hyponatremia E87.1 Nausea and vomiting, unspecified vomiting type R11.2 Vomiting type: unspecified Hypokalemia E87.6 Pancreatic cancer C25.9 Acute metabolic encephalopathy G93.41 Gastritis K29.70 Leukocytosis D72.829
== END 2023-10-01 16:45 | disposition home or self-care (01) | DRG 643 ==
LOC: ED 13:20 → EDINP 16:36 → SUATTDRO 16:36 → 2S 18:26